=== PATIENT | male | born 1935 | race Caucasian/White ===

== ENCOUNTER 2018-08-25 19:55 | Inpatient (IN) | payer MEDICARE, OTHER, SELFPAY ==
[2018-08-25 19:59] VITALS: BP 189/79; PULSE 59; RESP 20; TEMP 36.6; O2SAT 96; BMI 31.3
--- NOTE | 2018-08-25 20:24 | DI.CT.S_ITS ---
PROCEDURE: CT HEAD/BRAIN WO CON INDICATIONS: left leg weakness all day on coumadin TECHNIQUE: Noncontrast 4.5 mm thick angled axial sections acquired from the foramen magnum to the vertex, with coronal and sagittal reformats. For radiation dose reduction, the following was used: automated exposure control, adjustment of mA and/or kV according to patient size. COMPARISON: [facility], CT, CT BRAIN W CON, 08/30/2015, 16:04. [facility], CT, CT ANGIO BRAIN AND NECK, 08/08/2015, 16:14. FINDINGS: Image quality: Excellent. CSF spaces: Basal cisterns are patent. No extra-axial fluid collections. The ventricles are symmetric in size and shape. Brain: No intracranial bleeds or masses. There is cerebral volume loss for age, with resultant ventricular and sulcal prominence. There are periventricular and deep white matter chronic small vessel ischemic changes. There is intracranial internal carotid artery atherosclerosis. Skull and face: Calvarium and visualized facial bones appear intact, without suspicious lesions. Sinuses: Visualized sinuses and mastoids are clear. IMPRESSION: Moderate microvascular atherosclerotic change in the deep white matter of each hemisphere, expected for age. Source of current symptoms is not seen. No intracranial hemorrhage found. Dictated by: Umberto Negrete M.D. on 08/25/2018 at 21:11 Approved by: Umberto Negrete M.D. on 08/25/2018 at 21:12
--- NOTE | 2018-08-25 20:26 | ED.NEUROSD ---
HPI - Neuro Symptoms/Deficit General Chief Complaint: Neuro Symptoms/Deficit Stated Complaint: thinks he had a stroke Time Seen by Provider: 08/25/18 20:12 Source: patient and family Mode of arrival: ambulatory Limitations: no limitations History of Present Illness HPI Narrative: The patient is a 83-year-old male who presents with all left leg weakness. He has a history of AFib TIAs as coronary artery disease. He says this morning around 4:00 a.m. he was dropping someone off for the airport shuttle he went to get out of the car and realized his left leg doing quite work. He denies numbness or tingling. He is able to ambulate has been able to do so throughout the day but he feels unsteady. He says it just does not feel quite right. He at no time had any facial droop slurring of speech or upper extremity weakness. He says it has gotten slightly better throughout the day but really still present. Onset (ago): hour(s) Time: 04:00 History of same: No Quality: weak Relieving factors: none Exacerbating factors: none On Anticoagulants: Yes (warfarin) Associated symptoms: denies other symptoms Related Data Allergies Allergy/AdvReac Type Severity Reaction Status Date / Time No Known Drug Allergies Allergy Verified 08/25/18 20:03 Review of Systems Review of Systems All systems reviewed & are unremarkable except as noted in HPI and below Constitutional Denies chills, Denies fever(s), Denies lethargy and Denies weakness Eyes Denies blurry vision and Denies diplopia Cardiovascular Denies chest pain, Denies irregular heart rhythm, Denies lightheadedness, Denies palpitations, Denies dyspnea, Denies dyspnea on exertion and Denies orthopnea Respiratory Denies cough, Denies dyspnea, Denies dyspnea on exertion and Denies wheezing Gastrointestinal Gastrointestinal: Denies abdominal pain, Denies change in bowel habits, Denies diarrhea, Denies nausea and Denies vomiting Musculoskeletal Reports as per HPI Integumentary/Breasts Denies pruritus, Denies erythema, Denies rash and Denies wounds Neurologic Denies weakness Endocrine Denies palpitations Allergic/Immunologic Denies wheezing PFSH Medical History Asthma (Acute) Atrial fibrillation (Acute) Diabetes (Acute) Hyperlipidemia (Acute) Hypertension (Acute) TIA (transient ischemic attack) (Acute) Surgical History H/O carotid endarterectomy (Acute) Social History Smoking Status: Never smoker Comment: PCP Dr. Taylor Exam Initial Vital Signs Initial Vital Signs: Vital Signs Temperature 97.8 F 08/25/18 19:59 Pulse Rate 59 L 08/25/18 19:59 Respiratory Rate 20 08/25/18 19:59 Blood Pressure 189/79 H 08/25/18 19:59 Pulse Oximetry 96 08/25/18 19:59 Const General: cooperative Nutritional Appearance: average body habitus Orientation: alert, awake and oriented x3 HENMT Head: normal to inspection and normocephalic Eyes General: appearance normal, both eyes and all related structures Neck Neck: normal visual inspection, full ROM and No JVD Resp Effort & Inspection: normal respiratory effort Auscultation: clear to auscultation bilaterally, no rales, no rhonchi and no wheezes Cardio Rate: regular rate Heart Sounds: S1 normal and S2 normal GI Inspection: normal to inspection Palpation: soft, No guarding and No tender Skin General: no rashes or lesions noted, No jaundice and No petechiae Neuro General: alert, oriented x3, gait normal and no focal motor deficits Cranial Nerves: CN's II-XI intact bilaterally Speech: speech normal Gait: steppage Motor: muscle tone normal throughout and strength 5/5 throughout Sensory Exam: no sensory deficits noted Extrem Left lower extremity: normal to inspection, full ROM and normal capillary refill (Strong distal pedal pulse) Scores NIH Stroke Scale Level of Conciousness: Alert, keenly responsive Ask month/age: Answers both questions correctly. Open/close eyes, close hand: Performs both tasks correctly Best gaze horizontal: Normal Visual hewitt: No visual loss Facial palsy: Normal symetrical movement Left arm drift: No drift for full 10 sec Right arm drift: No drift for full 10 sec Left leg drift: No drift for full 10 sec Right leg drift: No drift for full 10 sec Limb ataxia: Absent Sensory on face/arms/legs: Normal, no sensory loss Best language: No aphasia, normal Dysarthria: Normal Extinction or inattention: No abnormality Total NIH Stroke scale score: 0 Course Orders Ordered: ED Orders 08/25/18 20:24 CT head/brain wo con Stat 08/25/18 20:41 Complete Blood Count AUTO DIFF Stat Comprehensive Metabolic Panel Stat Partial Thromboplastin Time Stat Prothrombin Time INR Stat Troponin I Stat 08/25/18 21:35 CT angio head and neck Stat Sodium Chloride (Normal Saline 0.9%) 1,000 mls @ 150 mls/hr IV CONT EVAN Last Admin: 08/25/18 21:27 Dose: 150 mls/hr Vital Signs - 8 hr 08/25/18 19:59 08/25/18 21:13 08/25/18 23:25 Temperature 97.8 F Pulse Rate 59 L 60 65 Respiratory Rate 20 17 18 Blood Pressure 189/79 H Blood Pressure [Right Arm] 133/61 151/79 H Pulse Oximetry 96 95 MDM - Neuro Symptoms/Deficit Lab Data Attestation: I reviewed the patient's lab results. Result diagrams: 08/25/18 20:41 08/25/18 20:41 Lab Results 08/25/18 08/25/18 08/25/18 Range/Units 20:41 20:41 20:41 WBC 8.9 (4.5-11.0) X10^3/uL RBC 4.54 (4.5-5.9) X10^6/uL Hgb 14.1 (13.5-17.5) g/dL Hct 41.9 (41-53) % MCV 92.4 (80-100) fL MCH 31.1 (26-34) PG MCHC 33.6 (30-36) % RDW 14.3 (11.6-14.8) % Plt Count 186 (150-400) X10^3/uL Neut % (Auto) 71.3 (50-75) % Lymph % (Auto) 14.4 L (25-40) % [place] % (Auto) 11.4 (3-14) % Eos % (Auto) 2.3 (2-4) % Baso % (Auto) 0.6 (0-2) % Neut # (Auto) 6300 H (2784-4725) /uL PT 30.0 H (10.1-12.7) SECONDS INR 2.7 H (0.9-1.3) APTT 55 H (26.4-36.2) SECONDS Sodium 142 (137-145) mmol/L Potassium 4.2 (3.4-5.1) mmol/L Chloride 103 (98-107) mmol/L Carbon Dioxide 26 (22-32) mmol/L BUN 21 H (9-20) mg/dL Creatinine 1.00 (0.66-1.25) mg/dL Estimated GFR > 60.0 (>60) mL/min BUN/Creatinine Ratio 21.0 (6-22) Glucose 138 H (80-110) mg/dL Calcium 9.1 (8.4-10.2) mg/dL Total Bilirubin 1.2 (0.2-1.3) mg/dL AST 24 (17-59) IU/L ALT 26 (21-72) IU/L Alkaline Phosphatase 68 (38-126) U/L Troponin I < 0.012 (0.01-0.034) ng/mL Total Protein 7.0 (6.3-8.2) g/dL Albumin 4.3 (3.5-5.0) g/dL Globulin 2.7 (1.7-4.1) g/dL Albumin/Globulin Ratio 1.6 (1.0-2.8) Urine Dip Bedside Urine Glucose Negative Bedside Urine Bilirubin - Negative Bedside Urine Ketone - Negative Urine Specific [place] 1.020 Bedside Urine Occult Blood - Negative Bedside Urine pH 6.0 Bedside Urine Protein - Negative Bedside Urine Urobilinogen - Negative Bedside Urine Nitrite - Negative Bedside Urine Leukocytes - Negative Esterase Imaging Data CT scan - head: Radiologist's impression: PROCEDURE: CT HEAD/BRAIN WO CON INDICATIONS: left leg weakness all day on coumadin TECHNIQUE: Noncontrast 4.5 mm thick angled axial sections acquired from the foramen magnum to the vertex, with coronal and sagittal reformats. For radiation dose reduction, the following was used: automated exposure control, adjustment of mA and/or kV according to patient size. COMPARISON: [facility], CT, CT BRAIN W CON, 08/30/2015, 16:04. [facility], CT, CT ANGIO BRAIN AND NECK, 08/08/2015, 16:14. FINDINGS: Image quality: Excellent. CSF spaces: Basal cisterns are patent. No extra-axial fluid collections. The ventricles are symmetric in size and shape. Brain: No intracranial bleeds or masses. There is cerebral volume loss for age, with resultant ventricular and sulcal prominence. There are periventricular and deep white matter chronic small vessel ischemic changes. There is intracranial internal carotid artery atherosclerosis. Skull and face: Calvarium and visualized facial bones appear intact, without suspicious lesions. Sinuses: Visualized sinuses and mastoids are clear. IMPRESSION: Moderate microvascular atherosclerotic change in the deep white matter of each hemisphere, expected for age. Source of current symptoms is not seen. No intracranial hemorrhage found. Dictated by: Umberto Negrete M.D. 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 CT angiogram neck: Critical calcific atherosclerosis proximal left internal carotid artery stenosis between 90 and 99%. String sign. Calcific atheromatous change involving distal left common carotid artery between 50 and 70%. 5 mm of about 50% length a narrowing of proximal right internal carotid artery without calcific atheromatous change could represent very short segment dissection. Further evaluation with conventional angiography may be helpful. ECG Data Attestation: I personally reviewed and interpreted this ECG as follows: Prior ECG tracings: available for review Interpretation: Paced rhythm rate [address] interval 158, QRS 197, QTC 502 MDM Narrative Medical decision making narrative: The patient is ambulatory without walker or assistance. However he does have some difficulty with the left leg.Patient has multiple risk factors for CVA. The he is on Coumadin not a tPA candidate. No signs of large vessel occlusion. Not a thrombectomy candidate. Patient cannot have an MRI due to pacemaker, He also has coronary artery stents. I spoke with Dr. Taylor in regards to admission concern for CVA. Accepts observation. No large vessel thrombus noted on CTA. He is noted to have a critical stenosis of his left internal carotid however this is unlikely causing his symptoms of left leg weakness. He has no neck pain. Discharge Plan Departure Patient Disposition: Admitted as Observation Clinical Impression: Brain TIA Discharge Date/Time: 08/25/18 23:48 Interventions: ED Discharge Assessment Last Done: 08/25/18 22:51 Admit Date/Time: 08/25/18 22:01 Admit Provider: Godfrey Taylor
[2018-08-25 20:49] LABS: Add Manual Diff / Slide Review NO; Basophils Percent Auto 0.6 % (0-2); Eosinophils Percent Auto 2.3 % (2-4); Hematocrit 41.9 % (41-53); Hemoglobin 14.1 g/dL (13.5-17.5); Lymphocytes Percent Auto 14.4 % (25-40); Mean Corpuscular HGB Conc 33.6 % (30-36); Mean Corpuscular Hemoglobin 31.1 PG (26-34); Mean Corpuscular Volume 92.4 fL (80-100); Monocytes Percent Auto 11.4 % (3-14); Neutrophils Absolute Auto 6300 /uL (3000-5900); Neutrophils Percent Auto 71.3 % (50-75); Platelet Count 186 X10^3/uL (150-400); Red Blood Cell Count 4.54 X10^6/uL (4.5-5.9); Red Cell Distribution Width 14.3 % (11.6-14.8); White Blood Cell Count 8.9 X10^3/uL (4.5-11.0)
[2018-08-25 20:56] LABS: INR 2.7 (0.9-1.3)
[2018-08-25 20:59] LABS: PTT Partial Thromboplastin Tim 55 SECONDS (26.4-36.2)
[2018-08-25 21:04] LABS: Alanine Aminotransferase 26 IU/L (21-72); Albumin 4.3 g/dL (3.5-5.0); Albumin Globulin Ratio 1.6 (1.0-2.8); Alkaline Phosphatase 68 U/L (38-126); Aspartate Aminotransferase 24 IU/L (17-59); Bilirubin Total 1.2 mg/dL (0.2-1.3); Blood Urea Nitrogen 21 mg/dL (9-20); Calcium 9.1 mg/dL (8.4-10.2); Carbon Dioxide 26 mmol/L (22-32); Chloride 103 mmol/L (98-107); Estimated Glomerular Filt Rate > 60.0 mL/min (>60); Globulin 2.7 g/dL (1.7-4.1); Glucose 138 mg/dL (80-110); HEMOLYSIS < 15 (0-50); Potassium 4.2 mmol/L (3.4-5.1); Sodium 142 mmol/L (137-145)
[2018-08-25 21:13] VITALS: BP 133/61; PULSE 60; RESP 17; O2SAT 95
[2018-08-25 21:16] LABS: Troponin I < 0.012 ng/mL (0.01-0.034)
[2018-08-25] MEDS: SODIUM CHLORIDE 0.9% 1,000 ML 150 ML IV (21:27)
--- NOTE | 2018-08-25 21:29 | PC.NURSE ---
pt ambulatory down hallway with MD Jayshree GARCIA present, gait unsteady, reports lt leg feels too long or something
--- NOTE | 2018-08-25 21:35 | DI.CT.S_ITS ---
PROCEDURE: CT ANGIO HEAD AND NECK INDICATIONS: left leg weakness TECHNIQUE: Pre-contrast 4.5 mm thick sections acquired from the foramen magnum to the vertex. After the administration of intravenous contrast, 1 mm thick sections acquired from the aortic arch through the [place] of [place]. Post-contrast 4.5 mm thick sections then re-acquired from the foramen magnum to the vertex. 3-dimensional nteyptm-zmdgnxomc-latuevqffg (MIP) and/or volume rendering reformats were acquired of the central intracranial vasculature and neck separately. COMPARISON: [facility], CT, HEAD WITHOUT CONTRAST, 11/01/2009, 11:56. [facility], CT, HEAD WITHOUT CONTRAST, 05/12/2014, 11:22. [facility], CT, ANGIO HEAD AND NECK (P), 01/17/2015, 15:44. [facility], CT, CT ANGIO BRAIN AND NECK, 08/08/2015, 16:14. [facility], CT, CT HEAD/BRAIN WO CON, 08/25/2018, 20:23. FINDINGS: Image quality: Excellent. BRAIN: CSF spaces: Ventricles are normal in size and shape. Basal cisterns are patent. No extra-axial fluid collections. Brain: No midline shift. No intracranial bleeds or masses. Martin-white matter interface appears intact. Skull and face: Calvarium and facial bones appear intact, without suspicious lesions. Orbits appear normal. Sinuses: Sinuses and mastoids are clear. HEAD CT ANGIOGRAPHY: Anterior circulation: Intracranial internal carotid arteries are normal in size and flow. The flow within the paired anterior cerebral arteries is normal and symmetric. The flow within the middle cerebral arteries is normal and symmetric. The anterior communicating artery is seen. No aneurysms are seen. Posterior circulation: Visualized portions of the vertebral arteries demonstrate normal caliber, and join to form a normal appearing basilar artery. Flow within the posterior cerebral arteries is normal and symmetric. No aneurysms are seen. NECK CT ANGIOGRAPHY: Carotid system: The great vessels demonstrate a conventional anatomy as they arise from the aortic arch. The origins of the common carotid arteries appear patent. The common carotid arteries demonstrate normal caliber and courses. There are calcified plaques in the left distal common carotid artery and proximal internal carotid artery. The left common carotid artery is csiz-lk-zklgrjotwa narrowed with approximately 50% stenosis. There is 90-99% stenosis in the proximal left internal carotid artery. There is mild plaquing of the right common carotid artery distally without high-grade stenosis. Posterior circulation: The origins of the vertebral arteries both appear widely patent. The more superior extracranial portions of both vertebral arteries also demonstrate normal courses and calibers. They join to form a normal appearing basilar artery. Soft tissues: There is a 1.1 x 0.7 cm calcific density right of the medulla, unchanged since 11/01/2009. Visualized neck soft tissues demonstrate no suspicious abnormalities. Bones: No suspicious bony lesions. There is loss of cervical lordosis. Severe degenerative disc disease and facet arthropathy. Visualized cervical spine appears normally aligned. There are mucus retention cysts or polyps in the maxillary sinuses bilaterally. IMPRESSION: 1. No high-grade stenosis or occlusion in anterior or posterior intracranial circulations. 2. Densely calcified atherosclerotic plaques at the left carotid bifurcation with 90-99% stenosis of the proximal left internal carotid artery and ~50% of the distal left common carotid artery. 3. A 1.1 x 0.7 cm calcific density right of the medulla, unchanged since 11/01/2009, likely benign. 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 Any quantitative measurements of stenosis were performed using NASCET criteria. Dictated by: Issa Craven M.D. on 08/26/2018 at 9:01 Approved by: Issa Craven M.D. on 08/26/2018 at 9:38
[2018-08-25 23:25] VITALS: BP 151/79; PULSE 65; RESP 18
[2018-08-25 23:43] VITALS: BP 142/72; PULSE 63; RESP 16; TEMP 37.1; O2SAT 95
[2018-08-26] VITALS (7 sets, daily range): BP systolic 133–153; BP diastolic 53–82; PULSE 59–64; RESP 16–20; TEMP 36.4–36.8; O2SAT 93–95; BMI 31.3
--- NOTE | 2018-08-26 | DI.US.S_ITS ---
PROCEDURE: US CAROTID DOPPLER BI INDICATIONS: CVA TECHNIQUE: Color and pulse Doppler interrogation was performed of both carotid systems, with image documentation and velocity measurements. COMPARISON: [facility], CT, CT ANGIO HEAD AND NECK, 08/25/2018, 21:33. [facility], US, CAROTID ARTERY DOPPLER BILAT, 06/09/2014, 12:21. FINDINGS: Stenosis calculations are based on SRU (Society of Radiologists in Ultrasound) criteria. Right side: Brachial blood pressure: 145/56 mm Hg. Common carotid artery peak systolic velocity: 40 cm/sec. Internal carotid artery peak systolic velocity: No definite flow identified. Internal carotid artery end diastolic velocity: N./A. External carotid artery peak systolic velocity: 18 cm/sec. ICA/CCA peak systolic ratio: N./A.. Martin scale imaging description: Heavy scattered plaque. Percent internal carotid artery stenosis: Possible occlusion versus high-grade stenosis.. Vertebral artery: Not visualized. Left side: Brachial blood pressure: 165/78 mm Hg. Common carotid artery peak systolic velocity: 70 cm/sec. Internal carotid artery peak systolic velocity: 92 cm/sec. Internal carotid artery end diastolic velocity: 25 cm/sec. External carotid artery peak systolic velocity: 80 cm/sec. ICA/CCA peak systolic ratio: 1.3 Martin scale imaging description: Moderate scattered plaque. Percent internal carotid artery stenosis: Less than 50% stenosis. Vertebral artery: Flow direction is antegrade. IMPRESSION: 1. No definitive flow visualized within the right internal carotid artery which may be related to technical factors, although high-grade pinhole stenosis and/or occlusion cannot be excluded. If indicated MR angiography could be performed. 2. Less than 50% left internal carotid artery stenosis. 3. Right vertebral artery not visualized. Dictated by: Orlando Salmeron [facility] Interpreted: Umberto Negrete MD on 08/26/2018 at 15:08 Approved by: Umberto Negrete M.D. on 08/27/2018 at 8:57
--- NOTE | 2018-08-26 07:57 | PC.NURSE ---
pt to room aprx [id number] via stretcher, was able to transfer self over onto bed, minimal assist to remove pants, had been inc of urine and pericare given w/pullup given. was able to use urinal for rest of shift. sba to amb into br w/no limp or dragging of L foot. denied pain slightly wined w/exertion but pt denied feeling it, ra st 99%.NIH = 1 for decr'd peripheral vision/over all vision to l eye. pt did not know meds by name or the doses stating my takes of that. passed on in shift report to ask to bring in list. pt alert/oriented X's 3, though states he is forgetful at times.
--- NOTE | 2018-08-26 08:38 | PM.HP.1 ---
History of Present Illness Date Patient Seen: 08/26/18 Time Patient Seen: 08:38 Chief complaint: thinks he had a stroke Narrative: He presents complaining of weakness in his leg. He says this sensation started Thursday morning at 4:00 a.m. but did not come to the emergency department and tells 8:00 p.m. that evening. He is uncertain if the symptoms have improved he feels that his leg drags it just feels like it is not as strong as the other 1 although he is able to ambulate. He does have a history of carotid artery endarterectomy in the past. Patient History Medical History Asthma (Acute) Atrial fibrillation (Acute) Coronary artery disease (Acute) Diabetes (Acute) Hyperlipidemia (Acute) Hypertension (Acute) Retinal artery branch occlusion (Acute) TIA (transient ischemic attack) (Acute) Vocal cord dysfunction (Acute) Surgical History H/O carotid endarterectomy (Acute) History of heart artery stent (Acute) History of permanent cardiac pacemaker placement (Acute) Status post placement of other cardiac pacemaker (Acute) Family & Social History Social History: household members spouse Prior Living Arrangements House Safety & Behavioral: Feels Safe in Current Yes Environment Been Physically Hurt or No Threatened By a Person Suicidal Ideation Description None Suicide Plan Description No Plan Tobacco & Substance use: Smoking Status Never smoker alcohol intake frequency a few times a month Substance Use Type does not use Meds Allergies Allergy/AdvReac Type Severity Reaction Status Date / Time No Known Drug Allergies Allergy Verified 08/25/18 20:03 Review of Systems Constitutional Constitutional: Reports system reviewed and no additional complaints, except as documented and Denies frequent falls Eyes Eyes: Denies change in vision ENT Ears, Nose, Mouth, and Throat: Yes system reviewed; no additional complaints, except as documented Cardiovascular Cardiovascular: Denies chest pain, Denies fast heart rate and Denies shortness of breath Respiratory Respiratory: Reports system reviewed and no additional complaints, except as documented and Denies dyspnea Gastrointestinal Gastrointestinal: Reports system reviewed and no additional complaints, except as documented Genitourinary Genitourinary: Reports system reviewed and no additional complaints, except as documented Musculoskeletal Musculoskeletal: Reports abnormal gait and Denies numbness Integumentary/Breasts Skin/Breast: Reports system reviewed and no additional complaints, except as documented Neurologic Neurologic: Denies abnormal speech, Reports abnormal gait, Denies confusion, Denies frequent falls, Reports focal weakness, Denies memory loss and Denies numbness Psychiatric Psychiatric: Denies confusion and Denies memory loss Endocrine Endocrine: Reports system reviewed and no additional complaints, except as documented Hematologic/Lymphatic Hematologic/Lymphatic: Denies easy bleeding Allergic/Immunologic Allergic/Immunologic: Reports system reviewed and no additional complaints, except as documented Exam Vital Signs (past 8 hours): - 08/26/18 03:36 Temperature 97.7 F Pulse Rate 60 Respiratory Rate 16 Blood Pressure 135/76 Pulse Oximetry 94 Oxygen Delivery Method Room Air Narrative Exam Narrative: Pleasant elderly male sitting up in bed currently appears in no acute distress HEENT exam unremarkable Neck is supple no bruit noted Oropharynx clear Heart regular rhythm Lungs clear Abdomen soft nontender Lower extremities no edema Neuro exam he is awake alert speech normal he is oriented x3 there is no focal deficits of weakness or numbness noted in the upper or lower extremities to my exam but the patient continues to complain of clumsiness and weakness in in the leg. Cranial nerves are intact Objective Labs Result Diagrams: 08/25/18 20:41 08/25/18 20:41 Labs: Laboratory Results - last 24 hr 08/25/18 08/25/18 08/25/18 20:41 20:41 20:41 WBC 8.9 RBC 4.54 Hgb 14.1 Hct 41.9 MCV 92.4 MCH 31.1 MCHC 33.6 RDW 14.3 Plt Count 186 Neut % (Auto) 71.3 Lymph % (Auto) 14.4 L [place] % (Auto) 11.4 Eos % (Auto) 2.3 Baso % (Auto) 0.6 Neut # (Auto) 6300 H PT 30.0 H INR 2.7 H APTT 55 H Sodium 142 Potassium 4.2 Chloride 103 Carbon Dioxide 26 BUN 21 H Creatinine 1.00 Estimated GFR > 60.0 BUN/Creatinine Ratio 21.0 Glucose 138 H Calcium 9.1 Total Bilirubin 1.2 AST 24 ALT 26 Alkaline Phosphatase 68 Troponin I < 0.012 Total Protein 7.0 Albumin 4.3 Globulin 2.7 Albumin/Globulin Ratio 1.6 Assessment & Plan Plan: Assessment/Plan Narrative: One. TIA with persistent leg weakness. This morning he asking him if he has the symptoms still he is still complaining of clumsiness and weakness in the left leg like it does not work as well as the other 1 and different than it was previously. I am not able to to detect any significant weakness on my exam but this patient definitely very high risk for stroke. MRI not available because of his pacemaker. CT scan of the head was negative. He has multiple risk factors he is very high risk with diabetes AFib he is on chronic anticoagulation he has coronary disease and then he has these new symptoms consistent with the possible stroke and he has carotid artery disease with previous endarterectomy. I think the patient should be placed as an inpatient because of the high risk and probably has had a stroke we did scan documented with the MRI at this point. Go ahead and have physical therapy work with him watch him carefully for neuro changes and also place him with physical therapy. 2. Coronary artery disease history of stents placed and no signs of ongoing ischemia 3. History of diabetes type 2 on metformin plan to continue 3. History of hypertension continue home meds 4. Hyperlipidemia plan to continue home meds 5. History of asthma currently stable 6. Chronic anticoagulation for AFib he is currently anticoagulated sufficiently. 7. Code status the patient desires to be full code. This has been discussed with the patient Quality VTE Deep Vein Thrombosis/Pulmonary Embolism Present on Admission: No
--- NOTE | 2018-08-26 09:10 | PT.IIE ---
Addendum entered and electronically signed by Lashon Miller PT 08/26/18 15:18: This is to certify that I have reviewed this documentation and POC Original Note: Surgical History (Last Updated 08/26/18 @ 08:44 by Godfrey Taylor MD) H/O carotid endarterectomy (Acute) History of heart artery stent (Acute) History of permanent cardiac pacemaker placement (Acute) Status post placement of other cardiac pacemaker (Acute) Medical History (Last Updated 08/26/18 @ 08:44 by Godfrey Taylor MD) Asthma (Acute) Atrial fibrillation (Acute) Coronary artery disease (Acute) Diabetes (Acute) Hyperlipidemia (Acute) Hypertension (Acute) Retinal artery branch occlusion (Acute) TIA (transient ischemic attack) (Acute) Vocal cord dysfunction (Acute) Physical Therapy Inpatient Evaluation/Re-Eval M1 PT/OT-IP Prior Functional Status Start: 08/26/18 10:23 Freq: NEEDED Status: Active Protocol: Document 08/26/18 09:10 (Rec: 08/26/18 11:03 [id number]) Medical Review Prior Functional Status Medical History Reviewed Yes Communication No previous deficits noted. Mobility and Gait Pt states previously independent with all mobitlies and no AD, including ambulation, showering, self care and toileting. Social History Household Members spouse Living Arrangements House Number of Floors (Floors) One Floor Number of Stairs To Enter/Railing? 2 steps no rail to enter through the garage. 3 steps B rails to enter through the front door. Home Environment High Toilet Tub/Shower Home Equipment Straight Cane Additional Social History Comment Pt lives with Shawna who is avaliable for 24/7 assist. M2 PT-IP Current Condition Start: 08/26/18 10:23 Freq: NEEDED Status: Active Protocol: Document 08/26/18 09:10 (Rec: 08/26/18 11:03 [id number]) Physical Therapy Current Condition Current Condition Evaluation Date 08/26/18 Treatment Diagnosis s/p TIA; difficulty walking; fall risk Onset Date Precautions Other Precautions fall risk M3 PT-IP Subjective Start: 08/26/18 10:23 Freq: NEEDED Status: Active Protocol: Document 08/26/18 09:10 (Rec: 08/26/18 11:03 [id number]) Subjective Physical Therapy Visit Type Type Initial Evaluation Visit Start Time 09:10 Visit Stop Time 10:00 Total Visit Minutes 50 Number of INDUCTION HEAT TREATER Visits 0 Physical Therapy Visit Comments Patient Comments Pt agreeable to mobilize with PT Patient Goals Planning to go home with upon d/c M4 PT-IP Mobility and Gait Start: 08/26/18 10:23 Freq: NEEDED Status: Active Protocol: Document 08/26/18 09:10 (Rec: 08/26/18 11:03 [id number]) PT-Bed Mobility Assessment Supine to Sit Supine to Sit Standby Assistance Sit to Supine Sit to Supine Standby Assistance Scooting Scooting to Edge of Bed Independent PT-Transfer Assessment Sit to and From Stand Sit to and from Stand Standby Assistance Equipment Transfer Assistive Device None Gait Belt Straight Cane Orthotic/Prosthetic Devices or Brace: No Transfers Transfer Destination Bed Chair Comments Mobility Comments Resting/seated BP 138/70 HR 60 . Sit <> stand from chair is SBA (without AD as well as when performed with spc) and pt demonstrates impulsivity and requires BUE assist for ascend/descend. Sit <> supine is SBA and pt continues to move impulsively and using momentum to complete . Gait Assessment Gait Gait Assistance Required: Standby Assistance Contact Guard Assist Distance (Feet) 150 Able to Maintain Weight Bearing Status Yes During Gait Assistive Devices Assistive Device None Gait Belt Straight Cane Orthotic/Prosthetic Devices or Brace: No Gait Deviations General Gait Pattern Antalgic Decreased Stride Length Decreased Feet Clearance Narrow Based Gait Factors Limiting Gait Function Factors Limiting Gait Function Decreased Activity Tolerance Decreased Strength Poor Balance Poor Safety Awareness Comments Gait Comments Ambulation this session began with no AD x20 ft and pt demonstrates significant limp over R side with ambulation, significant sway and variability in step width, and demonstrates several minor LOB that he is able to recover without assist. Pt instructed to use a spc for additional 130 ft ambulation SBA this session and demonstrates improved gait pattern including decreased R lateral shift, more even step length and width and decreased sway. He was (+) for 1 episode of LOB when using spc while trying to use the cane to push a tissue out of his way on the floor. Pt was educated to slow down and focus on planning his steps when ambulating. Spouse agreed with pt need to slow down, focus on walking and use spc for safety. He did report feeling more secure overall with spc. Stair Climbing Assessment Evaluation Level of Assist On Stairs Minimal Assistance 1 Person Assistance Devices Stair Climbing Assistive Devices Straight Cane Technique/Endurance Stair Climbing Direction Ascend and Descend Stair Climbing Technique Step to Step Number of Steps Climbed 3 Query Text: Stair Climbing Set # Repetitions (reps) 2 Comments Stair Climbing Comments Pt performs up down 3 steps x2 minAx1 for steadying, without use of rail, but using spc. He needs mod cues for cane and step technique. PT-Balance Assessment Sitting Balance and Reactions Static Sitting Balance Ability Good Dynamic Sitting Balance Ability Good Standing Balance and Reactions Static Standing Balance Ability Fair Dynamic Standing Balance Ability Fair Device Used spc Functional Assessments Functional Tests Tinetti Balance and Gait Assessment 17 Other Functional Tests Performed Tinetti 17/28 demonstrates increased risk for falls. M5 PT-IP Objective Assessments Start: 08/26/18 10:23 Freq: NEEDED Status: Active Protocol: Document 08/26/18 09:10 (Rec: 08/26/18 11:03 [id number]) Orientation Orientation/Cognition Level of Alertness Alert Orientation Name Birthday Place Situation Safety Awareness Decreased Safety Awareness Comments Pt able to make needs known and able to respond appropriately, needing help from his for a few history/home set up items. Gross Range of Motion Lower Extremity ROM Assessment Within Functional Limits Strength Lower Extremity Strength Assessment Left Impaired Hip 4 Knee 4 Ankle 4 Comments Strength Comments LLE is slightly decreased grossly compared to L specifically hamstring and plantar flexion. Sensation Assessment Sensation Light Touch Intact Muscle Tone Comments Muscle Tone Comments No rigidity or flacidity noted during strength assessment of LE. M6 PT-IP Treatment Start: 08/26/18 10:23 Freq: NEEDED Status: Active Protocol: Document 08/26/18 09:10 (Rec: 08/26/18 11:03 [id number]) Physical Therapy Treatment Exercises Exercises Quad Sets Education Education Provided Safety Other Treatments Other Treatment Performed Pt and caregiver education in need for spc to improve balance and stability when walking. Also educated in equipment avaliable for home to improve safety with self care including shower chair of transfer bench, grab bars and hand held shower head. Caregiver/ was educated in safeguarding the patient including use of gait belt and assist on stairs. She and the pt were able to demonstrate appropriate hand hold on gait belt and proper safeguarding up/down 1 step ( PT CGA for safety) requiring min cues for hand placement. Both the pt and the caregiver/ spouse stated understanding of the concepts. M7 PT-IP Assessment and Plan Start: 08/26/18 10:23 Freq: NEEDED Status: Active Protocol: Document 08/26/18 09:10 (Rec: 08/26/18 11:03 [id number]) PT Summary Assessment and Plan Potential Rehabilitation Potential Good Status of Condition at Evaluation Stable Summary Impairments Strength Balance Coordination Bed Mobility Transfers Gait Activity Tolerance Progress Towards Goals Progressing Toward Goals Assessment Summary Pt with difficulty walking and impaired balance s/p TIA. He was able to up/down a total of 6 steps today with spc and minAx1 for steadying. He demonstrated improved balance and stability when ambulating with a spc SBA compared to no AD requiring CGA to recover from LOBx1. 17/28 score on Tinetti demonstrates pt is high risk for falls. Recommending d/c to home with 24/7 assist, use of spc for all ambulation and f/u with OP PT to improve balance and decrease risk of falls. Goals Bed Mobility Goal Independent Transfer Goal Standby Assistance Gait Goal Independent Cane Gait Distance 200 Other Goals STG: pt will ambulate 200 ft with spc SBA and no LOB. LTG: pt will up/down 3 steps SBA using B rails. Days to Meet Goals 3 Frequency of Treatment Frequency Of Treatment Once a Day Treatment Plan Physical Therapy Treatment Plan Bed Mobility Training Transfer Training Gait Training Therapeutic Exercise Balance Retraining Discharge Planning Neuromuscular Re-ed Coordination Retraining Other Recommendations and Next Treatment ambulation and stair climbing. Focus Recommendations To Nursing Amount of Assist Needed 1 Person Assist Discharge Recommendations PT Discharge Recommendations Home with 24/7 Assist Outpatient PT Equipment Needed for Home Before spc Discharge
--- NOTE | 2018-08-26 09:10 | PT.IIE ---
Surgical History (Last Updated 08/26/18 @ 08:44 by Godfrey Taylor MD) H/O carotid endarterectomy (Acute) History of heart artery stent (Acute) History of permanent cardiac pacemaker placement (Acute) Status post placement of other cardiac pacemaker (Acute) Medical History (Last Updated 08/26/18 @ 08:44 by Godfrey Taylor MD) Asthma (Acute) Atrial fibrillation (Acute) Coronary artery disease (Acute) Diabetes (Acute) Hyperlipidemia (Acute) Hypertension (Acute) Retinal artery branch occlusion (Acute) TIA (transient ischemic attack) (Acute) Vocal cord dysfunction (Acute) Physical Therapy Inpatient Evaluation/Re-Eval M1 PT/OT-IP Prior Functional Status Start: 08/26/18 10:23 Freq: NEEDED Status: Active Protocol: Document 08/26/18 09:10 (Rec: 08/26/18 11:03 [id number]) Medical Review Prior Functional Status Medical History Reviewed Yes Communication No previous deficits noted. Mobility and Gait Pt states previously independent with all mobitlies and no AD, including ambulation, showering, self care and toileting. Social History Household Members spouse Living Arrangements House Number of Floors (Floors) One Floor Number of Stairs To Enter/Railing? 2 steps no rail to enter through the garage. 3 steps B rails to enter through the front door. Home Environment High Toilet Tub/Shower Home Equipment Straight Cane Additional Social History Comment Pt lives with Shawna who is avaliable for 24/7 assist. M2 PT-IP Current Condition Start: 08/26/18 10:23 Freq: NEEDED Status: Active Protocol: Document 08/26/18 09:10 (Rec: 08/26/18 11:03 [id number]) Physical Therapy Current Condition Current Condition Evaluation Date 08/26/18 Treatment Diagnosis s/p TIA; difficulty walking; fall risk Onset Date Precautions Other Precautions fall risk M3 PT-IP Subjective Start: 08/26/18 10:23 Freq: NEEDED Status: Active Protocol: Document 08/26/18 09:10 (Rec: 08/26/18 11:03 [id number]) Subjective Physical Therapy Visit Type Type Initial Evaluation Visit Start Time 09:10 Visit Stop Time 10:00 Total Visit Minutes 50 Number of SLOT FLOOR PERSON Visits 0 Physical Therapy Visit Comments Patient Comments Pt agreeable to mobilize with PT Patient Goals Planning to go home with upon d/c M4 PT-IP Mobility and Gait Start: 08/26/18 10:23 Freq: NEEDED Status: Active Protocol: Document 08/26/18 09:10 (Rec: 08/26/18 11:03 [id number]) PT-Bed Mobility Assessment Supine to Sit Supine to Sit Standby Assistance Sit to Supine Sit to Supine Standby Assistance Scooting Scooting to Edge of Bed Independent PT-Transfer Assessment Sit to and From Stand Sit to and from Stand Standby Assistance Equipment Transfer Assistive Device None Gait Belt Straight Cane Orthotic/Prosthetic Devices or Brace: No Transfers Transfer Destination Bed Chair Comments Mobility Comments Resting/seated BP 138/70 HR 60 . Sit <> stand from chair is SBA (without AD as well as when performed with spc) and pt demonstrates impulsivity and requires BUE assist for ascend/descend. Sit <> supine is SBA and pt continues to move impulsively and using momentum to complete . Gait Assessment Gait Gait Assistance Required: Standby Assistance Contact Guard Assist Distance (Feet) 150 Able to Maintain Weight Bearing Status Yes During Gait Assistive Devices Assistive Device None Gait Belt Straight Cane Orthotic/Prosthetic Devices or Brace: No Gait Deviations General Gait Pattern Antalgic Decreased Stride Length Decreased Feet Clearance Narrow Based Gait Factors Limiting Gait Function Factors Limiting Gait Function Decreased Activity Tolerance Decreased Strength Poor Balance Poor Safety Awareness Comments Gait Comments Ambulation this session began with no AD x20 ft and pt demonstrates significant limp over R side with ambulation, significant sway and variability in step width, and demonstrates several minor LOB that he is able to recover without assist. Pt instructed to use a spc for additional 130 ft ambulation SBA this session and demonstrates improved gait pattern including decreased R lateral shift, more even step length and width and decreased sway. He was (+) for 1 episode of LOB when using spc while trying to use the cane to push a tissue out of his way on the floor. Pt was educated to slow down and focus on planning his steps when ambulating. Spouse agreed with pt need to slow down, focus on walking and use spc for safety. He did report feeling more secure overall with spc. Stair Climbing Assessment Evaluation Level of Assist On Stairs Minimal Assistance 1 Person Assistance Devices Stair Climbing Assistive Devices Straight Cane Technique/Endurance Stair Climbing Direction Ascend and Descend Stair Climbing Technique Step to Step Number of Steps Climbed 3 Query Text: Stair Climbing Set # Repetitions (reps) 2 Comments Stair Climbing Comments Pt performs up down 3 steps x2 minAx1 for steadying, without use of rail, but using spc. He needs mod cues for cane and step technique. PT-Balance Assessment Sitting Balance and Reactions Static Sitting Balance Ability Good Dynamic Sitting Balance Ability Good Standing Balance and Reactions Static Standing Balance Ability Fair Dynamic Standing Balance Ability Fair Device Used spc Functional Assessments Functional Tests Tinetti Balance and Gait Assessment 17 Other Functional Tests Performed Tinetti 17/28 demonstrates increased risk for falls. M5 PT-IP Objective Assessments Start: 08/26/18 10:23 Freq: NEEDED Status: Active Protocol: Document 08/26/18 09:10 (Rec: 08/26/18 11:03 [id number]) Orientation Orientation/Cognition Level of Alertness Alert Orientation Name Birthday Place Situation Safety Awareness Decreased Safety Awareness Comments Pt able to make needs known and able to respond appropriately, needing help from his for a few history/home set up items. Gross Range of Motion Lower Extremity ROM Assessment Within Functional Limits Strength Lower Extremity Strength Assessment Left Impaired Hip 4 Knee 4 Ankle 4 Comments Strength Comments LLE is slightly decreased grossly compared to L specifically hamstring and plantar flexion. Sensation Assessment Sensation Light Touch Intact Muscle Tone Comments Muscle Tone Comments No rigidity or flacidity noted during strength assessment of LE. M6 PT-IP Treatment Start: 08/26/18 10:23 Freq: NEEDED Status: Active Protocol: Document 08/26/18 09:10 (Rec: 08/26/18 11:03 [id number]) Physical Therapy Treatment Exercises Exercises Quad Sets Education Education Provided Safety Other Treatments Other Treatment Performed Pt and caregiver education in need for spc to improve balance and stability when walking. Also educated in equipment avaliable for home to improve safety with self care including shower chair of transfer bench, grab bars and hand held shower head. Caregiver/ was educated in safeguarding the patient including use of gait belt and assist on stairs. She and the pt were able to demonstrate appropriate hand hold on gait belt and proper safeguarding up/down 1 step ( PT CGA for safety) requiring min cues for hand placement. Both the pt and the caregiver/ spouse stated understanding of the concepts. M7 PT-IP Assessment and Plan Start: 08/26/18 10:23 Freq: NEEDED Status: Active Protocol: Document 08/26/18 09:10 (Rec: 08/26/18 11:03 [id number]) PT Summary Assessment and Plan Potential Rehabilitation Potential Good Status of Condition at Evaluation Stable Summary Impairments Strength Balance Coordination Bed Mobility Transfers Gait Activity Tolerance Progress Towards Goals Progressing Toward Goals Assessment Summary Pt with difficulty walking and impaired balance s/p TIA. He was able to up/down a total of 6 steps today with spc and minAx1 for steadying. He demonstrated improved balance and stability when ambulating with a spc SBA compared to no AD requiring CGA to recover from LOBx1. 17/28 score on Tinetti demonstrates pt is high risk for falls. Recommending d/c to home with 24/7 assist, use of spc for all ambulation and f/u with OP PT to improve balance and decrease risk of falls. Goals Bed Mobility Goal Independent Transfer Goal Standby Assistance Gait Goal Independent Cane Gait Distance 200 Other Goals STG: pt will ambulate 200 ft with spc SBA and no LOB. LTG: pt will up/down 3 steps SBA using B rails. Days to Meet Goals 3 Frequency of Treatment Frequency Of Treatment Once a Day Treatment Plan Physical Therapy Treatment Plan Bed Mobility Training Transfer Training Gait Training Therapeutic Exercise Balance Retraining Discharge Planning Neuromuscular Re-ed Coordination Retraining Other Recommendations and Next Treatment ambulation and stair climbing. Focus Recommendations To Nursing Amount of Assist Needed 1 Person Assist Discharge Recommendations PT Discharge Recommendations Home with 24/7 Assist Outpatient PT Equipment Needed for Home Before spc Discharge
[2018-08-26] MEDS: METOPROLOL ER 50 MG TABLET PO (10:45)
[2018-08-26] MEDS: MONTELUKAST 10 MG TABLET PO (10:45)
[2018-08-26] MEDS: ASPIRIN EC 81 MG TABLET PO (10:45)
--- NOTE | 2018-08-26 15:47 | PC.NURSE ---
Pt awake and alert lying quietly in bed. Denies pain. Admits to left visual deficit as a baseline unrelated to this admission. Reports feels as though left leg not back to full strength, but this is negligible at assessment. Spouse is present and involved in pt's care. Tele in place. Bed alarm for pt safety.
[2018-08-26] MEDS: METFORMIN HCL 500 MG TABLET 1000 MG PO (16:54)
[2018-08-26] MEDS: WARFARIN 2 MG TABLET 4 MG PO (16:55)
[2018-08-26] MEDS: ATORVASTATIN 20 MG TABLET 40 MG PO (19:50)
[2018-08-26] MEDS: SODIUM CHLORIDE 0.9% FLUSH 10 ML IV (19:51)
[2018-08-26] MEDS: ACETAMINOPHEN 325 MG TABLET 650 MG PO (22:07)
[2018-08-27 01:20] VITALS: O2SAT 96
[2018-08-27 03:40] VITALS: BP 142/78; PULSE 58; RESP 16; TEMP 36.4; O2SAT 95
--- NOTE | 2018-08-27 08:35 | P.DS_ITS ---
History of Present Illness Date Patient Seen: 08/27/18 Time Patient Seen: 08:34 Chief complaint: thinks he had a stroke Narrative: He presents complaining of weakness in his leg. He says this sensation started Thursday morning at 4:00 a.m. but did not come to the emergency department and tells 8:00 p.m. that evening. He is uncertain if the symptoms have improved he feels that his leg drags it just feels like it is not as strong as the other 1 although he is able to ambulate. He does have a history of carotid artery endarterectomy in the past. Discharge Providers Date of admission: 08/25/18 22:01 Primary care physician: Godfrey Taylor MD Consults: 08/26/18 01:48 Consult to Physician Routine Comment: Consulting Provider: Godfrey Taylor Reason for consultation: admission Has provider been notified: Yes 08/26/18 08:30 Consult to Physical Therapy Evaluate & Treat Comment: cva leg weakness Physician Instructions: Evaluate and Treat Discharge provider: Godfrey Taylor MD Discharge Date: 08/27/18 Summary Discharge Diagnosis: One. Acute stroke with left leg weakness that is persistent 2. Carotid artery stenosis 3. Coronary artery disease 4. Diabetes type 2 5. Hypertension 6. Hyperlipidemia 7. Chronic AFib on chronic anticoagulation Hospital Course: Patient presented to the hospital with left leg weakness that persisted it did get better but has not resolved he still has the weakness still has difficulty with ambulation even on discharge. He is has been getting some physical therapy that will be continued. CT scan of the head did not show any acute infarct but did show severe left carotid artery stenosis he has had previous right carotid artery endarterectomy. He also has chronic AFib. A pacemaker prohibited the MRI being done so we do not have imaging to confirm the stroke but by clinical criteria he definitely had a stroke but most likely in the right side as he has left-sided symptoms. He does have this significant stenosis in the left carotid artery this has been noted before but may be progressive. I will refer him to vascular surgery as an outpatient. He had a difficult time with the right-sided endarterectomy a few years ago and is not excited about having further procedures but is willing to if needed. Blood pressure is controlled diabetes is controlled and INR is therapeutic he is on lipid lowering therapy. We have changed him from aspirin to Plavix. He will also continue with physical therapy for the left leg weakness I have referred him to [facility] in [place] Status at Discharge Cognitive/behavioral status at discharge: Cognitive status is at baseline Functional status at discharge: independent ambulation Overall status at discharge: patient is not back to baseline Time Spent with Patient Greater than 30 minutes Exam Vital Signs (past 8 hours): - 08/27/18 01:20 08/27/18 03:40 Temperature 97.5 F L Pulse Rate 58 L Respiratory Rate 16 Blood Pressure 142/78 H Pulse Oximetry 96 95 Oxygen Delivery Method Room Air Oxygen Flow Rate 0 Narrative Exam Narrative: Pleasant male no acute distress lungs are clear Heart regular rhythm Neuro exam left lower extremity 4/5 strength otherwise in neuro exam unremarkable Objective Labs Result Diagrams: 08/25/18 20:41 08/25/18 20:41 Discharge Plan Discharge Plan Patient Disposition: Home Discharge comment: Follow-up with Dr. Taylor in the office next week Discharge Med Rec/Prescriptions Prescriptions: New clopidogrel [Plavix] 75 mg Tablet 75 mg PO DAILY Qty: 30 RF: 12 Continue warfarin 6 mg Tablet 6 mg PO QMWF RF: 0 warfarin 4 mg Tablet 4 mg PO [id number] RF: 0 metformin 1,000 mg Tablet 1,000 mg PO 0800 RF: 0 metformin 500 mg Tablet 500 mg PO 1700 RF: 0 metoprolol succinate 50 mg Tablet Extended Release 24 Hr 50 mg PO DAILY RF: 0 atorvastatin 40 mg Tablet 40 mg PO BEDTIME RF: 0 montelukast 10 mg Tablet 10 mg PO DAILY RF: 0 Discontinued aspirin 81 mg Tablet,Delayed Release (Dr/Ec) 81 mg PO DAILY RF: 0 Follow up/Referrals: Godfrey Taylor MD [Primary Care Provider] - 1 Week Provider Discharge Instructions Diet: Carb-consistent/Diabetic Activity: as tolerated Other treatments: Refer to [facility] for left leg weakness after CVA Discharge Data Primary Care Provider: Godfrey Taylor Attending Provider: Godfrey Taylor Admit Date/Time: 08/25/18 22:01 Quality VTE Deep Vein Thrombosis/Pulmonary Embolism Present on Admission: No
[2018-08-27 08:50] VITALS: BP 145/78; PULSE 60; RESP 16; TEMP 36.3; O2SAT 96
[2018-08-27] MEDS: CLOPIDOGREL 75 MG TABLET PO (09:05)
[2018-08-27] MEDS: METFORMIN HCL 500 MG TABLET 1000 MG PO (09:05)
[2018-08-27] MEDS: SODIUM CHLORIDE 0.9% FLUSH 10 ML IV (09:07)
[2018-08-27] MEDS: MONTELUKAST 10 MG TABLET PO (09:07)
[2018-08-27] MEDS: METOPROLOL ER 50 MG TABLET PO (09:07)
[2018-08-27 09:15] VITALS: O2SAT 95
--- NOTE | 2018-08-27 10:09 | PC.NURSE ---
AM NOTE - alert, no complaint discomfort, headache last night resolved w/tylenol, declines any addl medications this am, moving lle independently and states weakness has improved, later up with phys therapy, using fww, ambul hallway, no foot drop or drag noted, in this am and pt dc home, tele and hep lock dc'd. Reviewed dc instructions, script provided, dressed and tsf via wc by supervisor [employer] to car.
--- NOTE | 2018-08-27 16:59 | PT.IPTN ---
Current Diagnoses Transient cerebral ischemic attack, unspecified (08/25/18) Physical Therapy Treatment Note M2 PT-IP Current Condition Start: 08/26/18 10:23 Freq: NEEDED Status: Discharge Protocol: Document 08/26/18 09:10 (Rec: 08/26/18 11:03 [id number]) Physical Therapy Current Condition Current Condition Evaluation Date 08/26/18 Treatment Diagnosis s/p TIA; difficulty walking; fall risk Onset Date Precautions Other Precautions fall risk M3 PT-IP Subjective Start: 08/26/18 10:23 Freq: NEEDED Status: Discharge Protocol: Document 08/27/18 09:26 LJ (Rec: 08/27/18 16:58 LJ [id number]) Subjective Physical Therapy Visit Type Type Treatment Note Visit Start Time 09:23 Visit Stop Time 09:45 Total Visit Minutes 22 Physical Therapy Visit Comments Patient Comments Pt willing to ambulate in hallway. getting ready to go home. Therapy Pain Assessment Location top of head Intensity 3 Scale Used Numeric (1 - 10) Description Aching Dull M4 PT-IP Mobility and Gait Start: 08/26/18 10:23 Freq: NEEDED Status: Discharge Protocol: Document 08/27/18 09:26 LJ (Rec: 08/27/18 16:58 LJ [id number]) PT-Bed Mobility Assessment Rolling Level of Assist Minimal Assistance 1 Person Assistance Supine to Sit Supine to Sit Standby Assistance Sit to Supine Sit to Supine Standby Assistance Scooting Scooting to Edge of Bed Independent PT-Transfer Assessment Sit to and From Stand Sit to and from Stand Standby Assistance Equipment Transfer Assistive Device None Gait Belt Straight Cane Orthotic/Prosthetic Devices or Brace: No Transfers Transfer Destination Bed Chair Comments Mobility Comments Pt Brittany with donning slippers to transfer from bed standing with FWW. Gait Assessment Gait Gait Assistance Required: Standby Assistance Contact Guard Assist Distance (Feet) 200 Able to Maintain Weight Bearing Status Yes During Gait Assistive Devices Assistive Device Gait Belt Front Wheeled Walker Orthotic/Prosthetic Devices or Brace: No Gait Deviations General Gait Pattern Decreased Feet Clearance Narrow Based Gait Factors Limiting Gait Function Factors Limiting Gait Function Decreased Activity Tolerance Decreased Strength Poor Balance Poor Safety Awareness Comments Gait Comments Pt impulsive with gait in hallway requiring cues to slow down and pace himself. Somewhat annoyed with use of FWW. M5 PT-IP Objective Assessments Start: 08/26/18 10:23 Freq: NEEDED Status: Discharge Protocol: Document 08/26/18 09:10 (Rec: 08/26/18 11:03 [id number]) Orientation Orientation/Cognition Level of Alertness Alert Orientation Name Birthday Place Situation Safety Awareness Decreased Safety Awareness Comments Pt able to make needs known and able to respond appropriately, needing help from his for a few history/home set up items. Gross Range of Motion Lower Extremity ROM Assessment Within Functional Limits Strength Lower Extremity Strength Assessment Left Impaired Hip 4 Knee 4 Ankle 4 Comments Strength Comments LLE is slightly decreased grossly compared to L specifically hamstring and plantar flexion. Sensation Assessment Sensation Light Touch Intact Muscle Tone Comments Muscle Tone Comments No rigidity or flacidity noted during strength assessment of LE. M6 PT-IP Treatment Start: 08/26/18 10:23 Freq: NEEDED Status: Discharge Protocol: Document 08/26/18 09:10 (Rec: 08/26/18 11:03 [id number]) Physical Therapy Treatment Exercises Exercises Quad Sets Education Education Provided Safety Other Treatments Other Treatment Performed Pt and caregiver education in need for spc to improve balance and stability when walking. Also educated in equipment avaliable for home to improve safety with self care including shower chair of transfer bench, grab bars and hand held shower head. Caregiver/ was educated in safeguarding the patient including use of gait belt and assist on stairs. She and the pt were able to demonstrate appropriate hand hold on gait belt and proper safeguarding up/down 1 step ( PT CGA for safety) requiring min cues for hand placement. Both the pt and the caregiver/ spouse stated understanding of the concepts. M7 PT-IP Assessment and Plan Start: 08/26/18 10:23 Freq: NEEDED Status: Discharge Protocol: Document 08/27/18 09:26 LJ (Rec: 08/27/18 16:58 LJ [id number]) PT Summary Assessment and Plan Potential Rehabilitation Potential Good Status of Condition at Evaluation Stable Summary Impairments Strength Balance Coordination Bed Mobility Transfers Gait Activity Tolerance Progress Towards Goals Progressing Toward Goals Assessment Summary Pt impulsive and will require minimum SPC for ambulating at home. No LOB during this treatment. Goals Bed Mobility Goal Independent Transfer Goal Standby Assistance Gait Goal Independent Cane Gait Distance 200 Other Goals STG: pt will ambulate 200 ft with spc SBA and no LOB. LTG: pt will up/down 3 steps SBA using B rails. Days to Meet Goals 3 Frequency of Treatment Frequency Of Treatment Once a Day Treatment Plan Physical Therapy Treatment Plan Bed Mobility Training Transfer Training Gait Training Therapeutic Exercise Balance Retraining Discharge Planning Neuromuscular Re-ed Coordination Retraining Other Recommendations and Next Treatment ambulation and stair climbing. Focus Recommendations To Nursing Amount of Assist Needed Standby Assistance Discharge Recommendations PT Discharge Recommendations Home with / Assist Outpatient PT Equipment Needed for Home Before spc Discharge
== END 2018-08-27 10:15 | disposition home or self-care (01) | DRG 66 ==
LOC: ED 20:12 → AC 22:02
PROVIDERS: Admitting Provider Internal Medicine; Emergency Provider Emergency Medicine; Family Provider Internal Medicine; PCP Internal Medicine; Visit Provider Internal Medicine
DX: I63.231 Cerebral infarction due to unspecified occlusion or stenosis of right carotid arteries (principal); G83.14 Monoplegia of lower limb affecting left nondominant side; I25.10 Atherosclerotic heart disease of native coronary artery without angina pectoris; Z95.5 Presence of coronary angioplasty implant and graft; E11.9 Type 2 diabetes mellitus without complications; Z79.84 Long term (current) use of oral hypoglycemic drugs; I10 Essential (primary) hypertension; E78.5 Hyperlipidemia, unspecified; J45.909 Unspecified asthma, uncomplicated; Z79.01 Long term (current) use of anticoagulants; I48.2 Chronic atrial fibrillation
CPT/HCPCS: 36591; 70450; 70496; 70498; 80053; 81003; 82962; 84484; 85025; 85610; 85730; 93005; 93880; 96360; 96361; 97116; 97161; 97530; 99283; 99285; 99291; Q9967

== ENCOUNTER 2020-10-01 12:52 | Observation (INO) | payer MEDICARE, OTHER, SELFPAY ==
[2018-08-26 04:43] VITALS: BMI 31.3
[2020-10-01] VITALS (15 sets, daily range): BP systolic 128–204; BP diastolic 65–95; PULSE 60–63; RESP 7–20; TEMP 36.3–37; O2SAT 94–98; BMI 31.4; BMI 29.8
--- NOTE | 2020-10-01 12:54 | DI.CT.S_ITS ---
PROCEDURE: CT STROKE INDICATIONS: slurred speech TECHNIQUE: Noncontrast 4.5 mm thick angled axial sections acquired from the foramen magnum to the vertex, with coronal reformats. For radiation dose reduction, the following was used: automated exposure control, adjustment of mA and/or kV according to patient size. COMPARISON: None. FINDINGS: Image quality: Excellent. CSF spaces: Basal cisterns are patent. No extra-axial fluid collections. The ventricles are symmetric in size and shape. Brain: No intracranial bleeds or masses. There is cerebral volume loss for age, with resultant ventricular and sulcal prominence. There are periventricular and deep white matter chronic small vessel ischemic changes. There is intracranial internal carotid artery atherosclerosis. Skull and face: Calvarium and visualized facial bones appear intact, without suspicious lesions. Sinuses: Partially visualized small mucous retention cyst or polyp seen in both maxillary antrum. IMPRESSION: No acute intracranial process. Findings were personally telephoned and discussed with Dr. Mckeon in the emergency department at 1315 hours 10/01/20. This study fulfills neurological imaging criteria for inclusion or exclusion of acute stroke therapies based on available published neurological guidelines. Dictated by: Andre Detn M.D. on 10/01/2020 at 13:12 Approved by: Andre Dent M.D. on 10/01/2020 at 13:16
--- NOTE | 2020-10-01 12:59 | ED.NEUROSD ---
HPI - Neuro Symptoms/Deficit General Chief Complaint: Neuro Symptoms/Deficit Stated Complaint: possible stroke Time Seen by Provider: 10/01/20 12:57 Source: patient and EMS Mode of arrival: EMS Limitations: no limitations History of Present Illness HPI Narrative: This is an 85-year-old male who comes to the emergency department with complaint of weakness and difficulty with use in his right upper extremity and tingling as well as difficulty with speech. Patient states his speech seems to be improving. He states his upper extremity is working normally now. He believes this started about noon, his who was not present with him was last seen normal about 9:00 a.m. patient has a prior history of either TIAs or fever CVA in the past. He is on warfarin daily, he takes dyslipidemia and diabetic medications. Patient denies any headache, no vision changes, no chest pain or shortness of breath, no diaphoresis. He denies any nausea, vomiting, no diarrhea, constipation or urinary symptoms. He denies any numbness, tingling or weakness in his lower extremities. 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 Patient lives with his who will be calling to touch base with the hospital. Related Data Home Medications Medication Instructions Recorded Confirmed atorvastatin 40 mg PO BEDTIME 08/26/18 10/01/20 metformin 1,000 mg PO BID 08/26/18 10/01/20 montelukast 10 mg PO QPM 08/26/18 10/01/20 warfarin 4 mg PO [id number] 08/26/18 10/01/20 warfarin 6 mg PO QMWF 08/26/18 10/01/20 metoprolol succinate 100 mg PO DAILY 10/01/20 10/01/20 Allergies Allergy/AdvReac Type Severity Reaction Status Date / Time No Known Drug Allergies Allergy Verified 08/25/18 20:03 Review of Systems Review of Systems ROS Unobtainable: All systems reviewed & are unremarkable except as noted in HPI and below Patient History Medical History Asthma Atrial fibrillation Coronary artery disease Diabetes Hyperlipidemia Hypertension Retinal artery branch occlusion TIA (transient ischemic attack) Vocal cord dysfunction Surgical History H/O carotid endarterectomy History of heart artery stent History of permanent cardiac pacemaker placement Status post placement of other cardiac pacemaker Family History (Updated 10/01/20 @ 16:35 by Tremaine Plummer DO) Father CAD (coronary artery disease) Mother Cancer Social History household members: spouse Smoking Status: Never smoker Smoking Status: Never smoker alcohol intake frequency: a few times a month Substance Use Type: does not use Exam Narrative Exam Narrative: GEN: well nourished, well appearing male, alert and oriented x 3, patient appears to be in mild distress. HEENT: Atraumatic, pupils are equal round reactive to light, extraocular movements are intact, nares are clear, TMs are clear with no fluid, there is no conjunctival pallor. Throat is clear without any exudates, erythema, tonsillar enlargement or uvular deviation, no facial droop appreciated HEART: Regular rate and rhythm without murmur, clicks, rubs. No carotid bruits, pulses are equal in upper and lower extremities LUNGS:Lungs clear to auscultation, no wheezes, rales, crackles, chest moves symmetrically ABD:bowel sounds normal, soft, non-tender, no guarding, rebound, rigidity, no masses noted, no hepatosplenomegaly :No CVA tenderness MSCL: Non-tender, no muscle atrophy, muscles strength 5/5 upper and lower extremities, full range of motion, normal gait Initial Vital Signs Initial Vital Signs: Vital Signs Temperature 97.3 F L 10/01/20 12:59 Scores NIH Stroke Scale Level of Conciousness: Alert, keenly responsive Ask month/age: Answers both questions correctly. Open/close eyes, close hand: Performs both tasks correctly Best gaze horizontal: Normal Visual hewitt: No visual loss Facial palsy: Normal symetrical movement Left arm drift: No drift for full 10 sec Right arm drift: No drift for full 10 sec Left leg drift: No drift for full 5 sec Right leg drift: No drift for full 5 sec Limb ataxia: Absent Sensory on face/arms/legs: Normal, no sensory loss Course Orders Ordered: ED Orders 10/01/20 11:55 Complete Blood Count AUTO DIFF Stat Partial Thromboplastin Time Stat Prothrombin Time INR Stat Troponin & CK Cardiac Panel Stat 10/01/20 12:54 CT Stroke Stat 10/01/20 12:58 CT angio head and neck Stat Urine Drug Screen, Rapid Stat EKG-12 Lead Stat 10/01/20 13:26 COVID19 Stat Acetaminophen (Acetaminophen 325 Mg Tablet) 650 mg PO Q6HR PRN PRN Reason: Fever/Mild Pain (1-3) Atorvastatin Calcium (Atorvastatin 20 Mg Tablet) 40 mg PO BEDTIME EVAN Dextrose (Dextrose 50 % In Water 25 Gm/50 Ml Syringe) 25 gm IV PRN PRN PRN Reason: Hypoglycemia Insulin Aspart (Insulin Aspart 100 Unit/Ml Insuln Pen) 0 unit SUBCUT ACHS [facility]; Protocol Last Admin: 10/01/20 17:40 Dose: Not Given Documented by: TERRA Magnesium Hydroxide (Magnesium Hydroxide 30 Ml Udc) 30 ml PO DAILY PRN PRN Reason: Constipation Metoprolol Succinate (Metoprolol Er 50 Mg Tablet) 100 mg PO DAILY [facility] Montelukast Sodium (Montelukast 10 Mg Tablet) 10 mg PO 1700 EVAN Last Admin: 10/01/20 17:39 Dose: 10 mg Documented by: TERRA Ondansetron HCl (Ondansetron 4 Mg/2 Ml Inj) 4 mg IV Q8HR PRN PRN Reason: Nausea And Vomiting Discontinued Medications Sodium Chloride (Normal Saline 0.9%) 1,000 mls @ 150 mls/hr IV CONT EVAN Stop: 10/01/20 16:03 Last Infusion: 10/01/20 15:15 Dose: 0 mls/hr Documented by: Admin: 10/01/20 13:26 Dose: 150 mls/hr Documented by: DANYELLE Labetalol HCl (Labetalol 20 Mg/4 Ml Syringe) 10 mg IV NOW ONE Stop: 10/01/20 13:38 Last Admin: 10/01/20 13:41 Dose: 10 mg Documented by: DANYELLE Reevaluation(s) Reevaluation #1: Recheck, patient updated on Head CT which is negative. Reviewed his labs and imaging today. Time: 14:23 Consultations Consultation #1: Spoke with Dr. Plummer, patient had NIH of 0, his symptoms are resolving upon arrival. He does still seem to have a little bit a difficulty with speech but was able to passes NIH scale. During his stay in the department he was initially in the 180 range for his pressure but it increased to 200, he was given labetalol which brought him down to the 160 range. He is also supratherapeutic on his INR with a 4 and normally takes Plavix with his warfarin so aspirin was held. Abnormalities in his COVID swab is negative Dr. Plummer kindly accepts patient for observation Time: 14:23 Vital Signs Vital signs: Vital Signs - 8 hr 10/01/20 12:59 10/01/20 13:09 10/01/20 13:10 Temperature 97.3 F L Pulse Rate 60 63 Respiratory Rate 18 Blood Pressure 185/84 H Pulse Oximetry 98 97 10/01/20 13:30 10/01/20 13:41 10/01/20 13:46 Temperature Pulse Rate 60 60 60 Respiratory Rate 7 L 20 Blood Pressure 204/92 H 202/92 H 185/95 H Pulse Oximetry 98 97 10/01/20 14:00 10/01/20 14:13 10/01/20 14:18 Temperature Pulse Rate 60 62 60 Respiratory Rate 16 13 Blood Pressure 171/73 H 169/79 H 169/79 H Pulse Oximetry 96 95 10/01/20 14:30 10/01/20 14:55 10/01/20 15:00 Temperature Pulse Rate 60 60 60 Respiratory Rate 11 L 10 L 15 Blood Pressure 183/84 H 178/79 H 169/79 H Pulse Oximetry 98 95 95 MDM - Neuro Symptoms/Deficit Lab Data Attestation: I reviewed the patient's lab results. Result diagrams: 10/01/20 11:55 10/01/20 11:55 Labs: Lab Results 10/01/20 10/01/20 10/01/20 Range/Units 11:55 11:55 11:55 WBC 9.6 (4.5-11.0) X10^3/uL RBC 4.77 (4.5-5.9) X10^6/uL Hgb 14.5 (13.5-17.5) g/dL Hct 43.9 (41-53) % MCV 92.0 (80-100) fL MCH 30.3 (26-34) PG MCHC 33.0 (30-36) % RDW 15.3 H (11.6-14.8) % Plt Count 229 (150-400) X10^3/uL Neut % (Auto) 73.0 (50-75) % Lymph % (Auto) 16.5 L (25-40) % [place] % (Auto) 9.8 (3-14) % Eos % (Auto) 0.0 L (2-4) % Baso % (Auto) 0.7 (0-2) % Neut # (Auto) 7000 (5322-6138) /uL Lymph # (Auto) 1600 (4079-0391) /uL [place] # (Auto) 900 (0-900) /uL Eos # (Auto) 0 (0-450) /uL Baso # (Auto) 100 (0-100) /uL PT 45.5 H (10.1-12.7) SECONDS INR 4.0 H (0.9-1.3) APTT 49 H D (26.4-36.2) SECONDS Sodium (137-145) mmol/L Potassium (3.4-5.1) mmol/L Chloride (98-107) mmol/L Carbon Dioxide (22-32) mmol/L BUN (9-20) mg/dL Creatinine (0.66-1.25) mg/dL Estimated GFR (>60) mL/min BUN/Creatinine Ratio (6-22) Glucose (80-110) mg/dL Calcium (8.4-10.2) mg/dL Total Creatine Kinase 75 (55-170) U/L CK-MB (CK-2) TNP CK-MB (CK-2) Rel Index TNP Troponin I < 0.012 (0.01-0.034) ng/mL COVID-19 PCR (Negative) 10/01/20 10/01/20 Range/Units 11:55 13:26 WBC (4.5-11.0) X10^3/uL RBC (4.5-5.9) X10^6/uL Hgb (13.5-17.5) g/dL Hct (41-53) % MCV (80-100) fL MCH (26-34) PG MCHC (30-36) % RDW (11.6-14.8) % Plt Count (150-400) X10^3/uL Neut % (Auto) (50-75) % Lymph % (Auto) (25-40) % [place] % (Auto) (3-14) % Eos % (Auto) (2-4) % Baso % (Auto) (0-2) % Neut # (Auto) (1450-0244) /uL Lymph # (Auto) (1437-9979) /uL [place] # (Auto) (0-900) /uL Eos # (Auto) (0-450) /uL Baso # (Auto) (0-100) /uL PT (10.1-12.7) SECONDS INR (0.9-1.3) APTT (26.4-36.2) SECONDS Sodium 137 (137-145) mmol/L Potassium 4.7 (3.4-5.1) mmol/L Chloride 102 (98-107) mmol/L Carbon Dioxide 29 (22-32) mmol/L BUN 18 (9-20) mg/dL Creatinine 0.94 (0.66-1.25) mg/dL Estimated GFR > 60.0 (>60) mL/min BUN/Creatinine Ratio 19.1 (6-22) Glucose 95 (80-110) mg/dL Calcium 9.3 (8.4-10.2) mg/dL Total Creatine Kinase (55-170) U/L CK-MB (CK-2) CK-MB (CK-2) Rel Index Troponin I (0.01-0.034) ng/mL COVID-19 PCR Negative (Negative) Point of Care Testing Glucose POC 92 Urine Dip Bedside Urine Glucose Negative Bedside Urine Bilirubin - Negative Bedside Urine Ketone - Negative Urine Specific [place] 1.015 Bedside Urine Occult Blood - Negative Bedside Urine pH 6.0 Bedside Urine Protein - Negative Bedside Urine Urobilinogen - Negative Bedside Urine Nitrite - Negative Bedside Urine Leukocytes - Negative Esterase Imaging Data CT scan - head: Radiologist's Impression: [address] [id number] Scan ReportSigned Patient: Landen Gee WMR#: [id number]: 5Acct:[id number]/Sex: 85 / MDate of Service: 10/01/20Loc: EDAccession Number: [id number] Procedure: CT Stroke Ordering Provider: Lainey Mckeon D.O. PROCEDURE: CT STROKE INDICATIONS: slurred speech TECHNIQUE: Noncontrast 4.5 mm thick angled axial sections acquired from the foramen magnum to the vertex, with coronal reformats. For radiation dose reduction, the following was used: automated exposure control, adjustment of mA and/or kV according to patient size. COMPARISON: None. FINDINGS: Image quality: Excellent. CSF spaces: Basal cisterns are patent. No extra-axial fluid collections. The ventricles are symmetric in size and shape. Brain: No intracranial bleeds or masses. There is cerebral volume loss for age, with resultant ventricular and sulcal prominence. There are periventricular and deep white matter chronic small vessel ischemic changes. There is intracranial internal carotid artery atherosclerosis. Skull and face: Calvarium and visualized facial bones appear intact, without suspicious lesions. Sinuses: Partially visualized small mucous retention cyst or polyp seen in both maxillary antrum. IMPRESSION: No acute intracranial process. Findings were personally telephoned and discussed with Dr. Mckeon in the emergency department at 1315 hours 10/01/20. This study fulfills neurological imaging criteria for inclusion or exclusion of acute stroke therapies based on available published neurological guidelines. Dictated by: Andre Dent M.D. on 10/01/2020 at 13:12 Approved by: Andre Dent M.D. on 10/01/2020 at 13:16 CTA head and neck: Radiologist's Impression: [address] [id number] Scan ReportSigned Patient: Landen Gee WMR#: [id number]: 5Acct:[id number]/Sex: 85 / MDate of Service: 10/01/20Loc: EDAccession Number: [id number] Procedure: CT angio head and neck Ordering Provider: Lainey Mckeon D.O. PROCEDURE: CT ANGIO HEAD AND NECK INDICATIONS: dysarthria, weakness right arm TECHNIQUE: Noncontrast images were performed earlier in the day and not repeated. After the administration of intravenous contrast, 1 mm thick sections acquired from the aortic arch through the [place] of [place]. Post-contrast 4.5 mm thick sections then re-acquired from the foramen magnum to the vertex. 3-dimensional vekzvsr-dgpapehzv-iwtvzficnt (MIP) and/or volume rendering reformats were acquired of the central intracranial vasculature and neck separately. COMPARISON: [facility], US, US CAROTID BILATERAL, 11/23/2019, 15:21. [facility], US, US CAROTID DOPPLER BI, 08/26/2018, 11:16. [facility], CT, CT STROKE, 10/01/2020, 12:56. [facility], CT, CT ANGIO BRAIN AND NECK, 08/08/2015, 16:14. [facility], CT, CT ANGIO HEAD AND NECK, 08/25/2018, 21:33. [facility], CT, CT BRAIN W CON, 08/30/2015, 16:04. FINDINGS: Image quality: Excellent. BRAIN: CSF spaces: Ventricles are normal in size and shape. Basal cisterns are patent. No extra-axial fluid collections. Brain: No midline shift. No intracranial bleeds or masses. Martin-white matter interface appears intact. Skull and face: Calvarium and facial bones appear intact, without suspicious lesions. Orbits appear normal. Sinuses: Sinuses and mastoids are clear. HEAD CT ANGIOGRAPHY: Anterior circulation: Intracranial internal carotid arteries demonstrate generalized irregularity and calcification, with approximately 50% narrowing seen on each side. The flow within the paired anterior cerebral arteries is normal and symmetric. The flow within the middle cerebral arteries is normal and symmetric. The anterior communicating artery is seen. No aneurysms are seen. Posterior circulation: Visualized portions of the vertebral arteries demonstrate normal caliber, and join to form a normal appearing basilar artery. Flow within the posterior cerebral arteries is normal and symmetric. No aneurysms are seen. NECK CT ANGIOGRAPHY: Carotid system: The great vessels demonstrate a conventional anatomy as they arise from the aortic arch. The origins of the common carotid arteries appear patent. The common carotid arteries demonstrate normal caliber and courses. Focal atherosclerotic calcification and irregularity can be seen involving the left proximal internal carotid artery. There is approximately 90% stenosis at this site. Apparent prior right carotid endarterectomy changes are seen. The more distal internal carotid arteries demonstrate normal course and caliber. Posterior circulation: The origins of the vertebral arteries both appear widely patent. The more superior extracranial portions of both vertebral arteries also demonstrate normal courses and calibers. They join to form a normal appearing basilar artery. Soft tissues: Visualized neck soft tissues demonstrate no suspicious abnormalities. A left-sided pacer device is seen. Bones: No suspicious bony lesions. Relatively prominent cervical spine degenerative changes are seen. There is an apparent bony excrescence seen along the medial aspect of the right foramen magnum, as on series 14, image 125, which is similar to the prior examination. IMPRESSION: Focal narrowing is again seen involving the left proximal internal carotid artery, with approximately 90% narrowing. Apparent prior right carotid endarterectomy. No significant intracranial arterial abnormality is seen. Incidental note is made of: Pacer device Cervical spine degenerative changes Focal calcification seen along the right aspect of the foramen magnum, as before. Any quantitative measurements of stenosis were performed using NASCET criteria. Dictated by: Jeff Ramos M.D. on 10/01/2020 at 12:20 Approved by: Jeff Ramos M.D. on 10/01/2020 at 12:28 ECG Data Attestation: I personally reviewed and interpreted this ECG as follows: Prior ECG tracings: available for review Interpretation: Dual paced rhythm rate of 60, P are 192 QRS 8186 and QTC of 518. Similar to prior from 08/25/28. MDM Narrative Medical decision making narrative: This is an 85-year-old male who comes to the emergency department with acute onset neurologic symptoms including dysarthria, as well as difficulty with use and paresthesias in his right upper extremity. Patient states upper extremity has resolved and he feels like his speech is improving. He did not really have dysarthria but does mumble a little. Patient states he seems like he is back at baseline and per EMS the felt like he likely was back to normal. 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 Initially hypertensive at 185 but is becoming more hypertensive during his stay and labetalol was ordered and BP did improve. Aspirin was held as patient is supratherapeutic on his INR along with taking Plavix daily. [place] this would increase his risk for bleed significantly particularly with his hypertension. Spoke with Dr. Newell who accepts for observation. Stroke Core Measures Contraindications for TPA in CVA: SBP>185;DBP>110 Despite Repeated Treatment and Determinations (and INR of 4) Discharge Plan Departure Patient Disposition: Admitted as Observation Clinical Impression: TIA (transient ischemic attack), Hypertension Admit Date/Time: 10/01/20 15:09 Admit Provider: Tremaine Plummer
[2020-10-01 13:05] LABS: Add Manual Diff / Slide Review NO; Basophils Absolute Auto 100 /uL (0-100); Basophils Percent Auto 0.7 % (0-2); Eosinophils Absolute Auto 0 /uL (0-450); Hematocrit 43.9 % (41-53); Hemoglobin 14.5 g/dL (13.5-17.5); Lymphocytes Absolute Auto 1600 /uL (1100-4500); Lymphocytes Percent Auto 16.5 % (25-40); Mean Corpuscular Hemoglobin 30.3 PG (26-34); Monocytes Absolute Auto 900 /uL (0-900); Monocytes Percent Auto 9.8 % (3-14); Neutrophils Absolute Auto 7000 /uL (1500-7000); Platelet Count 229 X10^3/uL (150-400); Red Blood Cell Count 4.77 X10^6/uL (4.5-5.9); Red Cell Distribution Width 15.3 % (11.6-14.8); White Blood Cell Count 9.6 X10^3/uL (4.5-11.0)
[2020-10-01 13:10] LABS: Prothrombin Time 45.5 SECONDS (10.1-12.7)
[2020-10-01 13:12] LABS: Creatine Kinase 75 U/L (55-170)
[2020-10-01 13:13] LABS: PTT Partial Thromboplastin Tim 49 SECONDS (26.4-36.2)
[2020-10-01 13:25] LABS: Troponin I < 0.012 ng/mL (0.01-0.034)
[2020-10-01] MEDS: SODIUM CHLORIDE 0.9% 1,000 ML 150 ML IV (13:26)
[2020-10-01] MEDS: LABETALOL 20 MG/4 ML SYRINGE 10 MG IV (13:41)
[2020-10-01 13:50] LABS: COVID19 -Nasal RAPID Negative (Negative)
--- NOTE | 2020-10-01 15:55 | PM.HP.1 ---
History of Present Illness History of Present Illness Date Patient Seen: 10/01/20 Time Patient Seen: 15:56 Date of Onset of Symptoms: 10/01/20 Chief complaint: possible stroke Narrative: Landen Gee is an 85-year-old male with a past medical history of CAD, chronic atrial fibrillation with pacemaker placement in 2011, hypertension, hyperlipidemia, prior CVA with previous CEA and carotid stenosis, and type 2 diabetes who presented to the emergency room after noting some right hand tingling and slurred speech noted by his . Patient stated that this started around noon an lasted ultimately for about an hour. Last known normal according to the was around 9:00 a.m. per ER reports. He did not note any right-sided weakness or facial droop. He denies any recent palpable stations, chest pain, shortness of breath, fever, chills. He denies nausea, vomiting, abdominal pain, diarrhea, lower extremity swelling, or orthopnea. In the emergency room, the patient was hypertensive, but the remainder of his vital signs were unremarkable. Initial laboratory testing revealed an unremarkable CBC, INR 4.0, BMP was not obtained but troponin was negative. BMP is ordered to be added on. COVID-[address] head was negative for intracranial hemorrhage in did not show any acute infarcts. CT angiogram was performed which showed 90% stenosis of his left internal carotid artery consistent with prior imaging. Unable to obtain an MRI given his pacemaker. Patient will be admitted under observation status for presumed TIA. Current home meds: lipitor 40, metformin 1000 mg BID, metoprolol 100 mg daily, montelukast 10 mg daily, ventolin Inh q4h prn, warfarin 4 mg tablets 1.5 tab 4 times weekly, and 1 tab 3 days per week. Patient History Medical History Asthma Atrial fibrillation Coronary artery disease Diabetes Hyperlipidemia Hypertension Retinal artery branch occlusion TIA (transient ischemic attack) Vocal cord dysfunction Surgical History H/O carotid endarterectomy History of heart artery stent History of permanent cardiac pacemaker placement Status post placement of other cardiac pacemaker Family & Social History Family History (Updated 10/01/20 @ 16:35 by Tremaine Plummer DO) Father CAD (coronary artery disease) Mother Cancer Social History: household members spouse Safety & Behavioral: Feels Safe in Current Yes Environment Been Physically Hurt or No Threatened By a Person Tobacco & Substance use: Smoking Status Never smoker alcohol intake frequency a few times a month Substance Use Type does not use Meds Home Medications and Allergies Home Medications Medication Instructions Recorded Confirmed Type atorvastatin 40 mg PO BEDTIME 08/26/18 08/26/18 History metformin 1,000 mg PO 0800 08/26/18 08/26/18 History metformin 500 mg PO 1700 08/26/18 08/26/18 History metoprolol succinate 50 mg PO DAILY 08/26/18 08/26/18 History montelukast 10 mg PO DAILY 08/26/18 08/26/18 History warfarin 4 mg PO [id number] 08/26/18 08/26/18 History warfarin 6 mg PO QMWF 08/26/18 08/26/18 History clopidogrel [Plavix] 75 mg PO DAILY #30 tab 08/27/18 Rx Allergies Allergy/AdvReac Type Severity Reaction Status Date / Time No Known Drug Allergies Allergy Verified 08/25/18 20:03 Review of Systems Review of Systems Narrative: All other systems reviewed with the patient and are negative unless otherwise stated. Exam Vital Signs (past 8 hours): - 10/01/20 12:59 10/01/20 13:09 10/01/20 13:10 Temperature 97.3 F L Pulse Rate 60 63 Respiratory Rate 18 Blood Pressure 185/84 H Pulse Oximetry 98 97 10/01/20 13:30 10/01/20 13:41 10/01/20 13:46 Temperature Pulse Rate 60 60 60 Respiratory Rate 7 L 20 Blood Pressure 204/92 H 202/92 H 185/95 H Pulse Oximetry 98 97 10/01/20 14:00 10/01/20 14:13 10/01/20 14:18 Temperature Pulse Rate 60 62 60 Respiratory Rate 16 13 Blood Pressure 171/73 H 169/79 H 169/79 H Pulse Oximetry 96 95 10/01/20 14:30 10/01/20 14:55 10/01/20 15:00 Temperature Pulse Rate 60 60 60 Respiratory Rate 11 L 10 L 15 Blood Pressure 183/84 H 178/79 H 169/79 H Pulse Oximetry 98 95 95 Narrative Exam Narrative: GENERAL APPEARANCE: Well developed, well nourished, in no acute distress. SKIN: Inspection of the skin reveals no rashes, ulcerations or petechiae. HEENT: Normocephalic atraumatic, extraocular muscles are intact, oropharynx is clear and mucous membranes are moist, neck is supple without adenopathy NECK: Supple and symmetric. There was no thyroid enlargement, and no tenderness, or masses were felt. CHEST: Normal AP diameter and normal contour without any kyphoscoliosis. LUNGS: Auscultation of the lungs revealed no wheezes, rhonchi, or rales. CARDIOVASCULAR: There was a regular rate and rhythm without any murmurs, gallops, rubs. Peripheral pulses were 2+ and symmetric. ABDOMEN: Soft and nontender with normal bowel sounds. No ascites was noted. MUSCULOSKELETAL: There was no tenderness or effusions noted. Muscle strength and tone were normal. EXTREMITIES: No cyanosis, clubbing or edema. NEUROLOGIC: Alert and oriented x 3. Normal affect. Gait was normal. Strength is +5/5 in the Upper Extremities and Lower Extremities Bilaterally. Sensation to touch was normal. Objective ECG Impression: Atrial paced rhythm Imaging CT scan - head: Radiologist's impression: Focal narrowing is again seen involving the left proximal internal carotid artery, with approximately 90% narrowing. Apparent prior right carotid endarterectomy. No significant intracranial arterial abnormality is seen. Incidental note is made of: Pacer device Cervical spine degenerative changes Focal calcification seen along the right aspect of the foramen magnum, as before. Any quantitative measurements of stenosis were performed using NASCET criteria. CT non-contrast head: Radiologist's impression: No acute intracranial process. Findings were personally telephoned and discussed with Dr. Mckeon in the emergency department at 1315 hours 10/01/20. This study fulfills neurological imaging criteria for inclusion or exclusion of acute stroke therapies based on available published neurological guidelines. Labs Result Diagrams: 10/01/20 11:55 Labs: Laboratory Results - last 24 hr 10/01/20 10/01/20 10/01/20 11:55 11:55 11:55 WBC 9.6 RBC 4.77 Hgb 14.5 Hct 43.9 MCV 92.0 MCH 30.3 MCHC 33.0 RDW 15.3 H Plt Count 229 Neut % (Auto) 73.0 Lymph % (Auto) 16.5 L Taliaferro % (Auto) 9.8 Eos % (Auto) 0.0 L Baso % (Auto) 0.7 Neut # (Auto) 7000 Lymph # (Auto) 1600 Taliaferro # (Auto) 900 Eos # (Auto) 0 Baso # (Auto) 100 PT 45.5 H INR 4.0 H APTT 49 H D Total Creatine Kinase 75 CK-MB (CK-2) TNP CK-MB (CK-2) Rel Index TNP Troponin I < 0.012 COVID-19 PCR 10/01/20 13:26 WBC RBC Hgb Hct MCV MCH MCHC RDW Plt Count Neut % (Auto) Lymph % (Auto) Taliaferro % (Auto) Eos % (Auto) Baso % (Auto) Neut # (Auto) Lymph # (Auto) Taliaferro # (Auto) Eos # (Auto) Baso # (Auto) PT INR APTT Total Creatine Kinase CK-MB (CK-2) CK-MB (CK-2) Rel Index Troponin I COVID-19 PCR Negative Assessment & Plan Assessment & Plan narrative: Landen Gee is an 85-year-old male with a past medical history of CAD, chronic atrial fibrillation with pacemaker placement in 2011, hypertension, hyperlipidemia, prior CVA with previous CEA and carotid stenosis, and type 2 diabetes who presented to the emergency room after noting some right hand tingling and slurred speech noted by his . He is admitted under observation status for further observation after a likely TIA. 1. TIA, acute, present on admission, resolved -patient presented with 1 hour of a right hand tingling as well as slurred speech noted by his . Symptoms lasted for about an hour. Current stroke scale is 0. -may be related to symptomatic carotid stenosis, the patient also has atrial fibrillation but is anticoagulated on warfarin and INR is supratherapeutic. -patient had a previous admission in 2018 for a TIA. He has a history of right carotid stenosis that was operated on in the past. He had previous 90% blockage in the left internal carotid artery, however prior ultrasound showed less than 50% stenosis. Repeat CTA done this admission again shows 90% stenosis, and given new symptoms will repeat his ultrasound to see if there is again a discrepancy. -consider adding Plavix pending repeat ultrasound, per PCP notes he was taken off of Plavix in 2019 by his neurologist. -patient's blood pressure is elevated, will resume his home medications and make adjustments as necessary -unable to perform MRI given PPM. CT head negative and CTA as noted above. 2. Carotid stenosis, chronic, bilateral - patient had a previous admission in 2018 for a TIA. He has a history of right carotid stenosis that was operated on in the past. He had previous 90% blockage in the left internal carotid artery, however prior ultrasound showed less than 50% stenosis. Repeat CTA done this admission again shows 90% stenosis, and given new symptoms will repeat his ultrasound to see if there is again a discrepancy. 3. Chronic atrial fibrillation status post pacemaker placement, stable - continue telemetry, home metoprolol. 4. Type 2 diabetes, chronic - will check A1c, hold home metformin and start sliding scale insulin, carb controlled diet. 5. CAD, chronic, stable - continue warfarin on statin. Asa not on PMD list of 6. Hypertension, chronic, active -patient's blood pressure is elevated, will resume his home medications and make adjustments as necessary 7. Hyperlipidemia, chronic, stable - continue home statin 8. Supratherapeutic INR, present on admission, acute - INR 4 on admission. Will hold coumadin and continue to follow INR. Goal 2-3. No signs of active bleeding. 9. Obesity, chronic, BMI 31.5 -patient's obesity makes him higher risk for and complications from his TIA. Will order dietitian consultation. Code: Full, surrogate decision maker is the patient's . Dispo: admitted under observation status as his stay is not expected to exceed two midnights. DVT: on warfarin, INR above goal. COVID-19 COVID-19 status: Negative Scores NIHSS Level of Conciousness: Alert, keenly responsive Ask month/age: Answers both questions correctly. Open/close eyes, close hand: Performs both tasks correctly Best gaze horizontal: Normal Visual hewitt: No visual loss Facial palsy: Normal symetrical movement Left arm drift: No drift for full 10 sec Right arm drift: No drift for full 10 sec Left leg drift: No drift for full 5 sec Right leg drift: No drift for full 5 sec Limb ataxia: Absent Sensory on face/arms/legs: Normal, no sensory loss Best language: No aphasia, normal Dysarthria: Normal Extinction or inattention: No abnormality Total NIH Stroke scale score: 0
--- NOTE | 2020-10-01 16:12 | DI.US.S_ITS ---
PROCEDURE: US CAROTID DOPPLER LT INDICATIONS: TRANSIENT ISCHEMIC ATTACK TECHNIQUE: Color and pulse Doppler interrogation was performed of both carotid systems, with image documentation and velocity measurements. COMPARISON: [facility], , US CAROTID DOPPLER , 08/26/2018, 11:16. FINDINGS: Technically challenging and suboptimal study given patient's body habitus, inability to cooperate, and prior surgical history. Stenosis calculations are based on SRU (Society of Radiologists in Ultrasound) criteria. Right side: Common carotid artery peak systolic velocity: 45 cm/sec. Internal carotid artery peak systolic velocity: 19 cm/sec. Internal carotid artery end diastolic velocity: 5 cm/sec. External carotid artery peak systolic velocity: Not visible ICA/CCA peak systolic ratio: 0.4 . Martin scale imaging description: Scattered calcific plaque throughout the common carotid artery along with moderate intimal medial thickening. Color and spectral Doppler flow is not able to be detected in the region of the mid right ICA. Percent internal carotid artery stenosis: Questionably occluded . Vertebral artery: Not visible. Left side: Common carotid artery peak systolic velocity: 73 cm/sec. Internal carotid artery peak systolic velocity: 132 cm/sec. Internal carotid artery end diastolic velocity: 24 cm/sec. External carotid artery peak systolic velocity: 55 cm/sec. ICA/CCA peak systolic ratio: 1.8 . Martin scale imaging description: Heavy calcification in the left common carotid artery and particularly extensive in the carotid bulb circumferentially. Moderate subjective luminal stenosis at the proximal ICA. Percent internal carotid artery stenosis: 50-69% . Vertebral artery: Flow not visible. IMPRESSION: 1. Technically challenging and potentially inaccurate carotid ultrasound. 2. Questionable occlusion of the right internal carotid artery which is contradictory to CT imaging performed earlier the same day. This is felt to most likely be technical secondary to overlying scar tissue and lack of good acoustic window. 3. Moderate, potentially hemodynamically significant stenosis of the left proximal ICA estimated to be near 69% given ultrasound and CT data. 4. Nonvisualization of either vertebral artery. Dictated by: Ethel Guzman M.D. on 10/01/2020 at 17:59 Approved by: Ethel Guzman M.D. on 10/01/2020 at 18:05
[2020-10-01 16:45] LABS: BUN Creatinine Ratio 19.1 (6-22); Blood Urea Nitrogen 18 mg/dL (9-20); Calcium 9.3 mg/dL (8.4-10.2); Carbon Dioxide 29 mmol/L (22-32); Chloride 102 mmol/L (98-107); Estimated Glomerular Filt Rate > 60.0 mL/min (>60); Glucose 95 mg/dL (80-110); Potassium 4.7 mmol/L (3.4-5.1); Sodium 137 mmol/L (137-145)
[2020-10-01 16:46] LABS: HEMOLYSIS 60 (0-50)
[2020-10-01] MEDS: MONTELUKAST 10 MG TABLET PO (17:39)
[2020-10-01] MEDS: ATORVASTATIN 20 MG TABLET 40 MG PO (22:01)
--- NOTE | 2020-10-01 22:11 | PC.NURSE ---
SHIFT Report received from ED, care assumed 1515. Slightly hypertensive, otherwise VSS. No complaints of pain or neuro symptoms. NIH 2, related to left leg drift and inability to sense pin pricks to legs; however, I believe these findings were incidental. Up to bathroom, steady on feet. Shift without incident or recurrence of neuro symptoms. Hypertension resolved.
--- NOTE | 2020-10-02 01:43 | PC.NURSE ---
2355 patient seen and assessed. Is alert and oriented; NIH = 0. Breath sounds CTA with RA sat of 97%. HRR; telemetry reading at 1999 was BBB/v-paced. Denies nausea. BT present and is passing flatus. Denies dysuria, frequency or urgency with urination. Moves self in bed and noted to be getting up to bathroom independently. Is steady on feet but instructed to sit on edge of bed prior to getting up and if feeling weak, dizzy or lightheaded to call for staff assist; patient verbalizes understanding. Denies pain. Fall risk score is moderate.
[2020-10-02 04:00] VITALS: BP 149/72; PULSE 60; RESP 16; TEMP 36.5; O2SAT 94
[2020-10-02 05:05] LABS: INR 3.1 (0.9-1.3)
[2020-10-02 05:06] LABS: Add Manual Diff / Slide Review NO; Basophils Absolute Auto 0 /uL (0-100); Basophils Percent Auto 0.4 % (0-2); Eosinophils Absolute Auto 0 /uL (0-450); Hematocrit 40.9 % (41-53); Hemoglobin 13.6 g/dL (13.5-17.5); Lymphocytes Absolute Auto 1600 /uL (1100-4500); Lymphocytes Percent Auto 19.4 % (25-40); Mean Corpuscular HGB Conc 33.2 % (30-36); Mean Corpuscular Hemoglobin 30.4 PG (26-34); Mean Corpuscular Volume 91.4 fL (80-100); Monocytes Absolute Auto 900 /uL (0-900); Monocytes Percent Auto 10.5 % (3-14); Neutrophils Absolute Auto 5900 /uL (1500-7000); Neutrophils Percent Auto 69.7 % (50-75); Platelet Count 183 X10^3/uL (150-400); Red Blood Cell Count 4.48 X10^6/uL (4.5-5.9); Red Cell Distribution Width 15.1 % (11.6-14.8); White Blood Cell Count 8.5 X10^3/uL (4.5-11.0)
[2020-10-02 05:13] LABS: BUN Creatinine Ratio 19.8 (6-22); Blood Urea Nitrogen 18 mg/dL (9-20); Calcium 9.2 mg/dL (8.4-10.2); Carbon Dioxide 34 mmol/L (22-32); Chloride 101 mmol/L (98-107); Estimated Glomerular Filt Rate > 60.0 mL/min (>60); Glucose 119 mg/dL (80-110); HEMOLYSIS < 15 (0-50); Magnesium 1.8 mg/dL (1.6-2.3); Sodium 139 mmol/L (137-145)
[2020-10-02 05:14] LABS: Potassium 5.2 mmol/L (3.4-5.1)
[2020-10-02 05:34] LABS: Hemoglobin A1C% w Est Avg Glu 6.5 % (4.0-6.0)
[2020-10-02 05:46] LABS: TSH w/ Reflex to FT4 4.18 uIU/mL (0.47-4.68)
[2020-10-02 07:42] VITALS: BP 146/75; PULSE 60; RESP 17; TEMP 36.5; O2SAT 94
[2020-10-02 08:00] VITALS: O2SAT 96
--- NOTE | 2020-10-02 08:04 | PM.DS.1 ---
History of Present Illness History of Present Illness Date Patient Seen: 10/02/20 Time Patient Seen: 08:04 Chief complaint: possible stroke Narrative: Landen Gee is an 85-year-old male with a past medical history of CAD, chronic atrial fibrillation with pacemaker placement in 2011, hypertension, hyperlipidemia, prior CVA with previous CEA and carotid stenosis, and type 2 diabetes who presented to the emergency room after noting some right hand tingling and slurred speech noted by his . Patient stated that this started around noon an lasted ultimately for about an hour. Last known normal according to the was around 9:00 a.m. per ER reports. He did not note any right-sided weakness or facial droop. He denies any recent palpable stations, chest pain, shortness of breath, fever, chills. He denies nausea, vomiting, abdominal pain, diarrhea, lower extremity swelling, or orthopnea. In the emergency room, the patient was hypertensive, but the remainder of his vital signs were unremarkable. Initial laboratory testing revealed an unremarkable CBC, INR 4.0, BMP was not obtained but troponin was negative. BMP is ordered to be added on. COVID-[address] head was negative for intracranial hemorrhage in did not show any acute infarcts. CT angiogram was performed which showed 90% stenosis of his left internal carotid artery consistent with prior imaging. Unable to obtain an MRI given his pacemaker. Patient will be admitted under observation status for presumed TIA. Current home meds: lipitor 40, metformin 1000 mg BID, metoprolol 100 mg daily, montelukast 10 mg daily, ventolin Inh q4h prn, warfarin 4 mg tablets 1.5 tab 4 times weekly, and 1 tab 3 days per week. Discharge Providers Provider Date of admission: 10/01/20 15:09 Discharge Date: 10/02/20 Primary care physician: Godfrey Taylor MD Consults: 10/01/20 16:04 Consult to Occupational Therapy Evaluate & Treat Comment: Physician Instructions: Evaluate and treat Consult to Physical Therapy Evaluate & Treat Comment: Physician Instructions: Evaluate and Treat 10/01/20 16:21 Consult to Dietitian, Adult Routine Comment: Reason For Exam: obesity, DM, TIA Discharge provider: Tremaine Plummer DO Summary Hospital Course Discharge Diagnosis: Please see hospital course by problem list noted below Hospital Course: Landen Gee is an 85-year-old male with a past medical history of CAD, chronic atrial fibrillation with pacemaker placement in 2011, hypertension, hyperlipidemia, prior CVA with previous CEA and carotid stenosis, and type 2 diabetes who presented to the emergency room after noting some right hand tingling and slurred speech noted by his . He was admitted under observation status for further observation after a likely TIA. He had no recurrence of symptoms after admission and was discharged home the following day. 1. TIA, acute, present on admission, resolved -patient presented with 1 hour of a right hand tingling as well as slurred speech noted by his . Symptoms lasted for about an hour. Stroke scale on admission and in the ER 0. -may be related to symptomatic carotid stenosis, the patient also has atrial fibrillation but is anticoagulated on warfarin and INR is supratherapeutic. -patient had a previous admission in 2018 for a TIA. He has a history of right carotid stenosis that was operated on in the past. He had previous 90% blockage in the left internal carotid artery, however prior ultrasound showed less than 50% stenosis. Repeat CTA done this admission again shows 90% stenosis, and given new symptoms repeated the ultrasound which showed a 60-69% stenosis. -I added back plavix at this time given carotid stenosis, recommend outpatient follow up again with vascular surgery given findings. -unable to perform MRI given PPM. CT head negative for hemorrhage and CTA as noted above. 2. Carotid stenosis, chronic, bilateral - patient had a previous admission in 2018 for a TIA. He has a history of right carotid stenosis that was operated on in the past. He had previous 90% blockage in the left internal carotid artery, however prior ultrasound showed less than 50% stenosis. Repeat CTA done this admission again shows 90% stenosis, repeated the ultrasound which showed a 60-69% stenosis. - recommend outpatient follow up with vascular surgery. Patient denied history of bleeding while on plavix and warfarin, resumed plavix which was reportedly discontinued in 2019 by his neurologist. 3. Chronic atrial fibrillation status post pacemaker placement, stable - continue telemetry, home metoprolol and warfarin. 4. Type 2 diabetes, chronic, controlled - a1c 6.5% showing adequate control. held metformin during admission, safe to resume. 5. CAD, chronic, stable - continue warfarin and statin. 6. Hypertension, chronic, active -patient's blood pressure slightly elevated during admission, continued metoprolol 100 mg daily, advised to check blood pressures at home and follow up with primary care. 7. Hyperlipidemia, chronic, stable - continue home statin 8. Supratherapeutic INR, present on admission, acute - INR 4 on admission. Held coumadin x1 dose and INR improved. Safe to resume regular dosing upon discharge. 9. Obesity, chronic, BMI 31.5 Status at Discharge Cognitive/behavioral status at discharge: oriented Overall status at discharge: patient is back to baseline Exam Vital Signs (past 8 hours): - 10/02/20 04:00 Temperature 97.7 F Pulse Rate 60 Respiratory Rate 16 Blood Pressure 149/72 H Pulse Oximetry 94 Oxygen Delivery Method Room Air Oxygen Flow Rate 0 Narrative Exam Narrative: GENERAL APPEARANCE: Well developed, well nourished, in no acute distress. SKIN: Inspection of the skin reveals no rashes, ulcerations or petechiae. HEENT: Normocephalic atraumatic, extraocular muscles are intact, oropharynx is clear and mucous membranes are moist, neck is supple without adenopathy NECK: Supple and symmetric. There was no thyroid enlargement, and no tenderness, or masses were felt. CHEST: Normal AP diameter and normal contour without any kyphoscoliosis. LUNGS: Auscultation of the lungs revealed no wheezes, rhonchi, or rales. CARDIOVASCULAR: There was a regular rate and rhythm without any murmurs, gallops, rubs. Peripheral pulses were 2+ and symmetric. ABDOMEN: Soft and nontender with normal bowel sounds. No ascites was noted. MUSCULOSKELETAL: There was no tenderness or effusions noted. Muscle strength and tone were normal. EXTREMITIES: No cyanosis, clubbing or edema. NEUROLOGIC: Alert and oriented x 3. Normal affect. Gait was normal. Strength is +5/5 in the Upper Extremities and Lower Extremities Bilaterally. Sensation to touch was normal. Objective Labs Result Diagrams: 10/02/20 04:35 10/02/20 04:35 Labs: Laboratory Results - last 24 hr 10/01/20 10/01/20 10/01/20 11:55 11:55 11:55 WBC 9.6 RBC 4.77 Hgb 14.5 Hct 43.9 MCV 92.0 MCH 30.3 MCHC 33.0 RDW 15.3 H Plt Count 229 Neut % (Auto) 73.0 Lymph % (Auto) 16.5 L [place] % (Auto) 9.8 Eos % (Auto) 0.0 L Baso % (Auto) 0.7 Neut # (Auto) 7000 Lymph # (Auto) 1600 [place] # (Auto) 900 Eos # (Auto) 0 Baso # (Auto) 100 PT 45.5 H INR 4.0 H APTT 49 H D Sodium Potassium Chloride Carbon Dioxide BUN Creatinine Estimated GFR BUN/Creatinine Ratio Glucose Hemoglobin A1c Calcium Magnesium Total Creatine Kinase 75 CK-MB (CK-2) TNP CK-MB (CK-2) Rel Index TNP Troponin I < 0.012 [facility] COVID-19 PCR 10/01/20 10/01/20 10/02/20 11:55 13:26 04:35 WBC 8.5 RBC 4.48 L Hgb 13.6 Hct 40.9 L MCV 91.4 MCH 30.4 MCHC 33.2 RDW 15.1 H Plt Count 183 Neut % (Auto) 69.7 Lymph % (Auto) 19.4 L [place] % (Auto) 10.5 Eos % (Auto) 0.0 L Baso % (Auto) 0.4 Neut # (Auto) 5900 Lymph # (Auto) 1600 [place] # (Auto) 900 Eos # (Auto) 0 Baso # (Auto) 0 PT INR APTT Sodium 137 Potassium 4.7 Chloride 102 Carbon Dioxide 29 BUN 18 Creatinine 0.94 Estimated GFR > 60.0 BUN/Creatinine Ratio 19.1 Glucose 95 Hemoglobin A1c Calcium 9.3 Magnesium Total Creatine Kinase CK-MB (CK-2) CK-MB (CK-2) Rel Index Troponin I [facility] COVID-19 PCR Negative 10/02/20 10/02/20 10/02/20 04:35 04:35 04:35 WBC RBC Hgb Hct MCV MCH MCHC RDW Plt Count Neut % (Auto) Lymph % (Auto) [place] % (Auto) Eos % (Auto) Baso % (Auto) Neut # (Auto) Lymph # (Auto) [place] # (Auto) Eos # (Auto) Baso # (Auto) PT 35.0 H D INR 3.1 H APTT Sodium 139 Potassium 5.2 H Chloride 101 Carbon Dioxide 34 H BUN 18 Creatinine 0.91 Estimated GFR > 60.0 BUN/Creatinine Ratio 19.8 Glucose 119 H Hemoglobin A1c 6.5 H Calcium 9.2 Magnesium 1.8 Total Creatine Kinase CK-MB (CK-2) CK-MB (CK-2) Rel Index Troponin I TSH COVID-19 PCR 10/02/20 04:35 WBC RBC Hgb Hct MCV MCH MCHC RDW Plt Count Neut % (Auto) Lymph % (Auto) [place] % (Auto) Eos % (Auto) Baso % (Auto) Neut # (Auto) Lymph # (Auto) [place] # (Auto) Eos # (Auto) Baso # (Auto) PT INR APTT Sodium Potassium Chloride Carbon Dioxide BUN Creatinine Estimated GFR BUN/Creatinine Ratio Glucose Hemoglobin A1c Calcium Magnesium Total Creatine Kinase CK-MB (CK-2) CK-MB (CK-2) Rel Index Troponin I TSH 4.18 COVID-19 PCR PFSH Medical History Asthma Atrial fibrillation Coronary artery disease Diabetes Hyperlipidemia Hypertension Retinal artery branch occlusion TIA (transient ischemic attack) Vocal cord dysfunction Surgical History H/O carotid endarterectomy History of heart artery stent History of permanent cardiac pacemaker placement Status post placement of other cardiac pacemaker Family History (Updated 10/01/20 @ 16:35 by Tremaine Plummer DO) Father CAD (coronary artery disease) Mother Cancer Social History household members: spouse Smoking Status: Never smoker Discharge Plan Discharge Plan Patient Disposition: Home Provider Discharge Comment: You were admitted to the hospital with a TIA. MRI was unable to be performed due to your pacemaker. You had symptoms in the right side of your body and you have a blockage in an artery in your neck on the left side which can cause symptoms. You were restarted on clopidogrel, and given ultrasound results showing increasing stenosis (now 60-69%, but 90% on CTA) you should see Dr. Taylor about a follow up with the vascular surgeons to possibly put in a stent in that artery. Discharge orders & Medications Prescriptions: New clopidogrel 75 mg tablet 75 mg PO DAILY 30 Days Qty: 30 RF: 0 Continued warfarin 6 mg Tablet 6 mg PO QMWF RF: 0 warfarin 4 mg Tablet 4 mg PO [id number] RF: 0 metformin 1,000 mg Tablet 1,000 mg PO BID RF: 0 atorvastatin 40 mg Tablet 40 mg PO BEDTIME RF: 0 montelukast 10 mg Tablet 10 mg PO QPM RF: 0 metoprolol succinate 100 mg tablet extended release 24 hr 100 mg PO DAILY RF: 0 Follow up/Referrals: Godfrey Taylor MD [Primary Care Provider] - 2 Weeks Diet/Activity/Treatments Diet: Diet as Tolerated and Low-sodium Activity: As tolerated Discharge Data Primary Care Provider: Godfrey Taylor Attending Provider: Tremaine Plummer
[2020-10-02 08:46] VITALS: BP 152/77; PULSE 60
[2020-10-02] MEDS: METOPROLOL ER 50 MG TABLET 100 MG PO (08:46)
[2020-10-02] MEDS: CLOPIDOGREL 75 MG TABLET PO (08:49)
--- NOTE | 2020-10-02 10:03 | CM.DANOTE ---
Discharge Planning/Care Management DCP: assessment: initiated. Case received this morning at 0830. EMR reviewed. Went to room to meet with pt for continuation of the assessment process. RN reports that Dr. Plummer saw pt early this morning. Spouse was at bedside. He ok'd pt for home and pt left with Shawna at 0900. No d/c concerns were noted by the care team members. PCP: Dr. Taylor Payer: Medicare and a commercial insurance. CM Discharge Assessment Start: 10/02/20 10:02 Freq: Status: Active Protocol: Document 10/02/20 10:02 ITV (Rec: 10/02/20 10:02 ITV [id number]) Discharge Planning Assessment Advance Directives? No Advance Directives on File No History Provided By Medical Record Prior Living Arrangements House Household Members spouse Discharge Plan Home
== END 2020-10-02 09:15 | disposition home or self-care (01) ==
LOC: ED 14:23 → AC 15:11
PROVIDERS: Admitting Provider Internal Medicine; Emergency Provider Emergency Medicine; Family Provider Internal Medicine; PCP Internal Medicine; Referring Provider Emergency Medicine; Visit Provider Internal Medicine
DX: G45.9 Transient cerebral ischemic attack, unspecified (principal); R53.1 Weakness; R47.81 Slurred speech; I25.10 Atherosclerotic heart disease of native coronary artery without angina pectoris; I48.20 Chronic atrial fibrillation, unspecified; Z95.0 Presence of cardiac pacemaker; I10 Essential (primary) hypertension; E78.5 Hyperlipidemia, unspecified; Z86.73 Personal history of transient ischemic attack (TIA), and cerebral infarction without residual deficits; E11.9 Type 2 diabetes mellitus without complications; Z79.01 Long term (current) use of anticoagulants; Z79.84 Long term (current) use of oral hypoglycemic drugs; E66.9 Obesity, unspecified; Z68.31 Body mass index [BMI] 31.0-31.9, adult; R79.1 Abnormal coagulation profile; Z11.59 Encounter for screening for other viral diseases
CPT/HCPCS: 36415; 70450; 70496; 70498; 80048; 81003; 82550; 82962; 83036; 83735; 84443; 84484; 85025; 85610; 85730; 87635; 93005; 93882; 96361; 96374; 99284; G0378; Q9967

== ENCOUNTER 2022-01-29 17:45 | Observation (INO) | payer MEDICARE, OTHER, SELFPAY ==
[2020-10-01 15:14] VITALS: BMI 29.8
[2022-01-29] VITALS (18 sets, daily range): BP systolic 100–175; BP diastolic 49–81; PULSE 71–97; RESP 13–31; TEMP 37.2; O2SAT 90–94; BMI 28.8
--- NOTE | 2022-01-29 17:55 | DI.RAD.S_ITS ---
PROCEDURE: XR CHEST 1V INDICATIONS: chest pain TECHNIQUE: One view of the chest was acquired. COMPARISON: [facility], , CHEST 1 VIEW, 01/18/2018, 15:08. FINDINGS: Surgical changes and devices: Left chest wall pacemaker leads are in the region of right atrium and right ventricle. Lungs and pleura: Chronic mild elevation of right hemidiaphragm is again seen. Lungs are clear. No pleural effusions or pneumothorax. Mediastinum: Mildly tortuous thoracic aorta with aortic arch calcification is seen. Heart size is normal. Bones and chest wall: No suspicious bony lesions. Overlying soft tissues appear unremarkable. IMPRESSION: No acute cardiopulmonary pathology. Dictated by: Joby Smith M.D. on 01/29/2022 at 18:15 Approved by: Joby Smith M.D. on 01/29/2022 at 18:15
--- NOTE | 2022-01-29 18:07 | ED_ITS ---
HPI - Dizziness <Landen Patel MD - Last Filed: 01/30/22 00:55> General Chief Complaint: Dizziness Stated Complaint: Nausea and vomiting Time Seen by Provider: 01/29/22 18:04 Source: patient Mode of arrival: EMS Limitations: no limitations History of Present Illness HPI Narrative: The patient arrives by EMS after developing nausea & vomiting at home. He was out mowing his yard, feeling good. He suddenly developed nausea vomiting. He has no headache, URI symptoms, cough or fever chills. He has no history of chronic GI problems. Within nausea vomiting, he has no complaints of diarrhea. Of arrival here he vomited blood. He is anticoagulated with Coumadin and Plavix, he has a history of AFib and now has a pacemaker. He has no history of GI bleed. He has no melena, no recent bowel changes. He does not feel weak or dizzy. Related Data Home Medications Medication Instructions Recorded Confirmed atorvastatin 40 mg tablet 40 mg PO BEDTIME 08/26/18 10/01/20 metformin 1,000 mg tablet 1,000 mg PO BID 08/26/18 10/01/20 montelukast 10 mg tablet 10 mg PO QPM 08/26/18 10/01/20 warfarin 4 mg tablet 4 mg PO QTUTHSASU 08/26/18 10/01/20 warfarin 6 mg tablet 6 mg PO QMWF 08/26/18 10/01/20 metoprolol succinate 100 mg 100 mg PO DAILY 10/01/20 10/01/20 tablet,extended release 24 hr Allergies Allergy/AdvReac Type Severity Reaction Status Date / Time No Known Drug Allergies Allergy Verified 01/29/22 18:02 Review of Systems <Landen Patel MD - Last Filed: 01/30/22 00:55> Constitutional Constitutional: Denies anorexia, Denies body ache(s), Denies chills, Denies fatigue, Denies fever(s) and Denies headache(s) ENT Ears, Nose, Mouth, and Throat: Denies vertigo, Denies dizziness, Denies headache(s), Denies neck pain and Denies sore throat Cardiovascular Cardiovascular: Denies chest pain, Denies pedal edema, Denies lightheadedness and Denies dyspnea Respiratory Respiratory: Denies chest congestion, Denies cough and Denies dyspnea Gastrointestinal Gastrointestinal: Denies abdominal pain, Denies melena, Denies change in stool character, Denies loose stools, Reports nausea and Reports hematemesis Genitourinary Genitourinary: Denies hematuria and Denies dysuria Musculoskeletal Musculoskeletal: Denies back pain and Denies neck pain Integumentary/Breasts Skin/Breast: Denies dry skin and Denies rash Neurologic Neurologic: Denies confusion, Denies vertigo, Denies dizziness and Denies headache(s) Psychiatric Psychiatric: Denies anxiety, Denies confusion and Denies depression Endocrine Endocrine: Denies fatigue Hematologic/Lymphatic On Anticoagulants: Yes Patient History <Landen Patel MD - Last Filed: 01/30/22 00:55> Medical History Asthma Atrial fibrillation Coronary artery disease Diabetes Hyperlipidemia Hypertension Retinal artery branch occlusion TIA (transient ischemic attack) Vocal cord dysfunction Surgical History H/O carotid endarterectomy History of heart artery stent History of permanent cardiac pacemaker placement Status post placement of other cardiac pacemaker Family History Father CAD (coronary artery disease) Mother Cancer Social History household members: spouse Smoking Status: Never smoker alcohol intake: current Smoking Status: Never smoker alcohol intake frequency: a few times a month Substance Use Type: does not use Exam <Landen Patel MD - Last Filed: 01/30/22 00:55> Initial Vital Signs Initial Vital Signs: Vital Signs Pulse Rate 90 01/29/22 18:01 Respiratory Rate 22 01/29/22 18:01 Pulse Oximetry 93 01/29/22 18:01 Const General: cooperative, healthy appearing, comfortable, well developed, well groomed and No acute distress Orientation: Orientation (Intact) [facility] Head: normocephalic and atraumatic Nose: nares normal Mouth: oral mucosae normal Throat: posterior oropharynx normal Eyes General: appearance normal, both eyes and all related structures Pupils: PERRL EOM: EOM intact bilaterally Neck Neck: normal visual inspection and No JVD Resp Effort & Inspection: normal respiratory effort Auscultation: clear to auscultation bilaterally Cardio Rate: regular rate Rhythm: regular rhythm Heart Sounds: S1 normal, S2 normal and no murmurs GI Other: Soft. Nondistended. Nontender. Normal bowel sounds. No masses. Back/Spine/Pelvis Back: normal to inspection and No back tenderness Skin General: no rashes or lesions noted Neuro General: patient alert, patient awake, patient oriented x3 and no focal motor deficits Extrem General: normal to inspection, no pedal edema and no calf tenderness Psych Mental Status: mental status grossly normal Course <Landen Patel MD - Last Filed: 01/30/22 00:55> Course Course Narrative: The patient demonstrated hematemesis albeit anticoagulated on COVID. Emesis started prior to arrival, he only vomited blood 1 time. He has no history of GI bleeding. Through his ER stay he has been clinically stable. Vomiting ceased after a single dose of Zofran. He received Protonix. H/H of 14.9/43.8 is reassuring, repeat was 14.2/41.4. His INR is 3.3. He appears to be quite clinically stable, active bleeding is not suspected. I did not reverse the anti coagulation. The patient was discussed with the hospitalist, Dr. Plummer. He will be observed through the night, with her the lab test in the morning. He is on Coumadin and Plavix due to a history of AFib, he now has a pacemaker in place. EKG indicates a paced rhythm. Troponin is negative, he does have an elevated BNP. He did require oxygen in the ER. He has no chest pain, dyspnea, orthopnea or complaints of edema. This has not been addressed in the ER, hospitalist is aware. Orders Ordered: ED Orders 01/29/22 17:55 XR chest 1V Stat EKG-12 Lead Stat 01/29/22 18:28 Complete Blood Count AUTO DIFF Stat 01/29/22 20:30 BNP [NT-proBNP (BNP-Adult 18+)] Stat CBC Auto Diff [Complete Blood Count AUTO DIFF] Stat Comprehensive Metabolic Panel Stat Lipase Stat Magnesium Stat Partial Thromboplastin Time Stat Prothrombin Time INR Stat Troponin & CK Cardiac Panel Stat Acetaminophen (Acetaminophen 325 Mg Tablet) 975 mg PO Q8HR PRN PRN Reason: pain Atorvastatin Calcium (Atorvastatin 20 Mg Tablet) 40 mg PO BEDTIME EVAN Magnesium Sulfate (Magnesium Sulfate) 2 gm in 50 mls @ 25 mls/hr IV NOW ONE Stop: 01/30/22 02:43 Insulin Human Lispro (Insulin Lispro 100 Unit/Ml 3ml Vial) 0 unit SUBCUT ACHS [facility]; Protocol Metoprolol Succinate (Metoprolol Er 50 Mg Tablet) 100 mg PO DAILY [facility] Ondansetron HCl (Ondansetron 4 Mg/2 Ml Inj) 4 mg IV Q8HR PRN PRN Reason: Nausea And Vomiting Pantoprazole Sodium (Pantoprazole 40 Mg Vial) 40 mg IV BID EVAN Discontinued Medications Ondansetron HCl (Ondansetron 4 Mg/2 Ml Inj) 4 mg IV NOW ONE Stop: 01/29/22 18:03 Last Admin: 01/29/22 18:23 Dose: 4 mg Documented by: CYRUS Pantoprazole Sodium (Pantoprazole 40 Mg Vial) 40 mg IV NOW ONE Stop: 01/29/22 18:16 Last Admin: 01/29/22 18:23 Dose: 40 mg Documented by: CYRUS Vital Signs Vital signs: Vital Signs - 8 hr 01/29/22 18:01 01/29/22 18:02 01/29/22 18:30 Temperature 99.0 F Pulse Rate 90 88 97 H Respiratory Rate 22 15 18 Blood Pressure 175/81 H 152/72 H Pulse Oximetry 93 90 L 94 01/29/22 18:31 01/29/22 19:00 01/29/22 19:01 Temperature Pulse Rate 97 H 93 H 93 H Respiratory Rate 18 22 22 Blood Pressure 152/72 H 169/76 H Pulse Oximetry 92 90 L 90 L 01/29/22 19:30 01/29/22 19:44 01/29/22 20:00 Temperature Pulse Rate 91 H 87 85 Respiratory Rate 28 H 31 H 29 H Blood Pressure 148/67 H Pulse Oximetry 92 90 L 92 01/29/22 20:01 01/29/22 20:30 01/29/22 20:31 Temperature Pulse Rate 85 85 85 Respiratory Rate 29 H 22 13 Blood Pressure 128/68 101/49 L Pulse Oximetry 92 92 92 01/29/22 21:00 01/29/22 21:30 01/29/22 22:00 Temperature Pulse Rate 81 79 73 Respiratory Rate 17 17 25 H Blood Pressure 100/51 L 113/56 L Pulse Oximetry 92 93 92 01/29/22 22:30 01/29/22 23:00 01/29/22 23:30 Temperature Pulse Rate 73 71 71 Respiratory Rate 24 25 H 24 Blood Pressure 119/59 L 117/55 L 119/57 L Pulse Oximetry 93 92 92 MDM - Dizziness <Landen Patel MD - Last Filed: 01/30/22 00:55> Lab Data Result diagrams: 01/29/22 20:30 01/29/22 20:30 Labs: Lab Results 01/29/22 01/29/22 01/29/22 Range/Units 18:28 20:30 20:30 WBC 16.2 H (4.5-11.0) X10^3/uL RBC 4.72 (4.5-5.9) X10^6/uL Hgb 14.9 (13.5-17.5) g/dL Hct 43.8 (41-53) % MCV 92.9 (80-100) fL MCH 31.5 (26-34) PG MCHC 34.0 (30-36) % RDW 14.8 (11.6-14.8) % Plt Count 209 (150-400) X10^3/uL Neut % (Auto) 94.1 H (50-75) % Lymph % (Auto) 1.8 L (25-40) % [place] % (Auto) 3.8 (3-14) % Eos % (Auto) 0.1 L (2-4) % Baso % (Auto) 0.2 (0-2) % Neut # (Auto) 49016 H (1932-6717) /uL Lymph # (Auto) 300 L (0569-5150) /uL [place] # (Auto) 600 (0-900) /uL Eos # (Auto) 0 (0-450) /uL Baso # (Auto) 0 (0-100) /uL PT 38.3 H (10.1-12.7) SECONDS INR 3.3 H (0.9-1.3) APTT 42 H (26.4-36.2) SECONDS Sodium 139 (137-145) mmol/L Potassium 4.3 (3.4-5.1) mmol/L Chloride 102 (98-107) mmol/L Carbon Dioxide 26 (22-32) mmol/L BUN 23 H (9-20) mg/dL Creatinine 1.05 (0.66-1.25) mg/dL Estimated GFR > 60.0 (>60) mL/min BUN/Creatinine Ratio 21.9 (6-22) Glucose 154 H (80-110) mg/dL Calcium 9.0 (8.4-10.2) mg/dL Magnesium 1.4 L (1.6-2.3) mg/dL Total Bilirubin 2.0 H (0.2-1.3) mg/dL AST 30 (17-59) IU/L ALT 21 (<50) IU/L Alkaline Phosphatase 82 (38-126) U/L Total Creatine Kinase 73 (55-170) U/L CK-MB (CK-2) TNP CK-MB (CK-2) Rel Index TNP Troponin I < 0.012 (0.01-0.034) ng/mL NT-Pro-B Natriuret Pep (<450) pg/mL Total Protein 7.5 (6.3-8.2) g/dL Albumin 4.3 (3.5-5.0) g/dL Globulin 3.2 (1.7-4.1) g/dL Albumin/Globulin Ratio 1.3 (1.0-2.8) Lipase 88 (23-300) U/L 01/29/22/04/16 Range/Units 20:30 20:30 WBC 17.0 H (4.5-11.0) X10^3/uL RBC 4.50 (4.5-5.9) X10^6/uL Hgb 14.2 (13.5-17.5) g/dL Hct 41.4 (41-53) % MCV 92.0 (80-100) fL MCH 31.6 (26-34) PG MCHC 34.3 (30-36) % RDW 15.0 H (11.6-14.8) % Plt Count 194 (150-400) X10^3/uL Neut % (Auto) 94.1 H (50-75) % Lymph % (Auto) 1.3 L (25-40) % [place] % (Auto) 4.4 (3-14) % Eos % (Auto) 0.1 L (2-4) % Baso % (Auto) 0.1 (0-2) % Neut # (Auto) 28305 H (4540-0815) /uL Lymph # (Auto) 200 L (2841-7291) /uL [place] # (Auto) 700 (0-900) /uL Eos # (Auto) 0 (0-450) /uL Baso # (Auto) 0 (0-100) /uL PT (10.1-12.7) SECONDS INR (0.9-1.3) APTT (26.4-36.2) SECONDS Sodium (137-145) mmol/L Potassium (3.4-5.1) mmol/L Chloride (98-107) mmol/L Carbon Dioxide (22-32) mmol/L BUN (9-20) mg/dL Creatinine (0.66-1.25) mg/dL Estimated GFR (>60) mL/min BUN/Creatinine Ratio (6-22) Glucose (80-110) mg/dL Calcium (8.4-10.2) mg/dL Magnesium (1.6-2.3) mg/dL Total Bilirubin (0.2-1.3) mg/dL AST (17-59) IU/L ALT (<50) IU/L Alkaline Phosphatase (38-126) U/L Total Creatine Kinase (55-170) U/L CK-MB (CK-2) CK-MB (CK-2) Rel Index Troponin I (0.01-0.034) ng/mL NT-Pro-B Natriuret Pep 1010 H (<450) pg/mL Total Protein (6.3-8.2) g/dL Albumin (3.5-5.0) g/dL Globulin (1.7-4.1) g/dL Albumin/Globulin Ratio (1.0-2.8) Lipase (23-300) U/L Imaging Data Chest x-ray: Radiologist's Impression: No acute findings Critical Care Time <Landen Patel MD - Last Filed: 01/30/22 00:55> Critical Care Time Critical Care Time: Yes Total Critical Care Time: 60 Attestation: Time includes initial assessment of the patient, evaluation of Radiology, EKG and lab data, and multiple clinical decisions. Time includes informing the patient of the clinical situation and discussing the situation with admitting hospitalist. Discharge Plan Departure Patient Disposition: Admitted as Observation Clinical Impression: Gastrointestinal hemorrhage with hematemesis, Supratherapeutic INR, Chronic a- fib, Diabetes, CHF (congestive heart failure) Admit Date/Time: 01/29/22 23:32 Admit Provider: Tremaine Plummer
[2022-01-29] MEDS: ONDANSETRON 4 MG/2 ML INJ IV (18:23)
[2022-01-29] MEDS: PANTOPRAZOLE 40 MG VIAL IV (18:23)
[2022-01-29 18:43] LABS: Add Manual Diff / Slide Review NO; Basophils Absolute Auto 0 /uL (0-100); Basophils Percent Auto 0.2 % (0-2); Eosinophils Absolute Auto 0 /uL (0-450); Eosinophils Percent Auto 0.1 % (2-4); Hematocrit 43.8 % (41-53); Hemoglobin 14.9 g/dL (13.5-17.5); Lymphocytes Absolute Auto 300 /uL (1100-4500); Lymphocytes Percent Auto 1.8 % (25-40); Mean Corpuscular Hemoglobin 31.5 PG (26-34); Mean Corpuscular Volume 92.9 fL (80-100); Monocytes Absolute Auto 600 /uL (0-900); Monocytes Percent Auto 3.8 % (3-14); Neutrophils Absolute Auto 15200 /uL (1500-7000); Neutrophils Percent Auto 94.1 % (50-75); Platelet Count 209 X10^3/uL (150-400); Red Blood Cell Count 4.72 X10^6/uL (4.5-5.9); Red Cell Distribution Width 14.8 % (11.6-14.8); White Blood Cell Count 16.2 X10^3/uL (4.5-11.0)
[2022-01-29 20:58] LABS: INR 3.3 (0.9-1.3); Prothrombin Time 38.3 SECONDS (10.1-12.7)
[2022-01-29 21:01] LABS: PTT Partial Thromboplastin Tim 42 SECONDS (26.4-36.2)
[2022-01-29 21:03] LABS: Alanine Aminotransferase 21 IU/L (<50); Albumin 4.3 g/dL (3.5-5.0); Albumin Globulin Ratio 1.3 (1.0-2.8); Alkaline Phosphatase 82 U/L (38-126); Aspartate Aminotransferase 30 IU/L (17-59); BUN Creatinine Ratio 21.9 (6-22); Blood Urea Nitrogen 23 mg/dL (9-20); Carbon Dioxide 26 mmol/L (22-32); Chloride 102 mmol/L (98-107); Creatine Kinase 73 U/L (55-170); Estimated Glomerular Filt Rate > 60.0 mL/min (>60); Globulin 3.2 g/dL (1.7-4.1); Glucose 154 mg/dL (80-110); HEMOLYSIS < 15 (0-50); Lipase 88 U/L (23-300); Magnesium 1.4 mg/dL (1.6-2.3); Sodium 139 mmol/L (137-145); Total Protein 7.5 g/dL (6.3-8.2)
[2022-01-29 21:11] LABS: NT-proBNP (BNP-Adult 18+) 1010 pg/mL (<450)
[2022-01-29 21:14] LABS: Potassium 4.3 mmol/L (3.4-5.1)
[2022-01-29 21:15] LABS: Troponin I < 0.012 ng/mL (0.01-0.034)
[2022-01-29 21:49] LABS: Add Manual Diff / Slide Review NO; Basophils Absolute Auto 0 /uL (0-100); Basophils Percent Auto 0.1 % (0-2); Eosinophils Absolute Auto 0 /uL (0-450); Eosinophils Percent Auto 0.1 % (2-4); Hematocrit 41.4 % (41-53); Hemoglobin 14.2 g/dL (13.5-17.5); Lymphocytes Absolute Auto 200 /uL (1100-4500); Lymphocytes Percent Auto 1.3 % (25-40); Mean Corpuscular HGB Conc 34.3 % (30-36); Mean Corpuscular Hemoglobin 31.6 PG (26-34); Monocytes Absolute Auto 700 /uL (0-900); Monocytes Percent Auto 4.4 % (3-14); Neutrophils Absolute Auto 16100 /uL (1500-7000); Neutrophils Percent Auto 94.1 % (50-75); Platelet Count 194 X10^3/uL (150-400)
--- NOTE | 2022-01-29 23:39 | PM.HP.1 ---
History of Present Illness History of Present Illness Date Patient Seen: 01/29/22 Time Patient Seen: 23:39 Chief complaint: Nausea and vomiting Narrative: Landen Gee is an 85-year-old male with a past medical history of CAD, chronic atrial fibrillation with pacemaker placement in 2011, hypertension, hyperlipidemia, prior CVA with previous CEA and carotid stenosis, and type 2 diabetes who presented to the emergency room after an episode of hematemesis. patient was in his usual state of health this morning, and went outside to mow the lawn today which actually went quite well. He had no dizziness, chest pain, shortness of breath during this. He went to rest inside but became slightly dizzy and had an episode of nonbloody and nonbilious emesis. Shortly after this according to his he had an episode of pa hematemesis. He denies any prior GI bleeding. He is on warfarin for chronic atrial fibrillation. He was admitted a couple of years ago and was found to have a significant carotid stenosis for which he underwent another carotid endarterectomy at [place], and he remains on Plavix as well. The patient currently denies any fevers, chills, melena, abdominal pain, chest pain, shortness of breath, dizziness, vision changes. In the emergency room, the patient was mildly hypertensive, and was noted to be 90% on room air and placed on a couple L of oxygen. He does not use oxygen at home. laboratory evaluation was notable for a mild leukocytosis with WBC of 17, hemoglobin likely somewhat concentrated initially at 14.9, which repeat a couple hours later went down to 14.2. His baseline hemoglobin appears to be around 13. INR was elevated at 3.3, chemistries were notable for a low magnesium of 1.4 and a mildly elevated bilirubin at 2.0. ProBNP was also elevated at 1010, troponin was undetectable. Patient History Medical History Asthma Atrial fibrillation Coronary artery disease Diabetes Hyperlipidemia Hypertension Retinal artery branch occlusion TIA (transient ischemic attack) Vocal cord dysfunction Surgical History H/O carotid endarterectomy History of heart artery stent History of permanent cardiac pacemaker placement Status post placement of other cardiac pacemaker Family & Social History Family History Father CAD (coronary artery disease) Mother Cancer Social History: household members spouse Safety & Behavioral: Feels Safe in Current Yes Environment Been Physically Hurt or No Threatened By a Person Tobacco & Substance use: Smoking Status Never smoker alcohol intake frequency a few times a month Substance Use Type does not use Meds Home Medications and Allergies Home Medications Medication Instructions Recorded Confirmed Type atorvastatin 40 mg tablet 40 mg PO BEDTIME 08/26/18 10/01/20 History metformin 1,000 mg tablet 1,000 mg PO BID 08/26/18 10/01/20 History montelukast 10 mg tablet 10 mg PO QPM 08/26/18 10/01/20 History warfarin 4 mg tablet 4 mg PO [id number] 08/26/18 10/01/20 History warfarin 6 mg tablet 6 mg PO QMWF 08/26/18 10/01/20 History metoprolol succinate 100 mg 100 mg PO DAILY 10/01/20 10/01/20 History tablet,extended release 24 hr Allergies Allergy/AdvReac Type Severity Reaction Status Date / Time No Known Drug Allergies Allergy Verified 01/29/22 18:02 Review of Systems Review of Systems Narrative: All other systems reviewed with the patient and are negative unless otherwise stated. Exam Vital Signs (past 8 hours): - 01/29/22 18:01 01/29/22 18:02 01/29/22 18:30 Temperature 99.0 F Pulse Rate 90 88 97 H Respiratory Rate 22 15 18 Blood Pressure 175/81 H 152/72 H Pulse Oximetry 93 90 L 94 01/29/22 18:31 01/29/22 19:00 01/29/22 19:01 Temperature Pulse Rate 97 H 93 H 93 H Respiratory Rate 18 22 22 Blood Pressure 152/72 H 169/76 H Pulse Oximetry 92 90 L 90 L Oxygen Delivery Method Room Air Narrative Exam Narrative: General:? Patient is well developed and well nourished, in no distress at this time. HEENT:? Normocephalic, atraumatic, extraocular muscles intact, oral pharynx is clear and mucous membranes are moist. Neck: supple and symmetric, trachea is midline, no cervical adenopathy. Negative for JVD Chest:? Normal AP diameter and contour without kyphoscoliosis, no tachypnea, equal chest rise bilaterally. Lungs:? CTA b/l no wheezing rhonchi or rales. Cardio:?RRR no m/r/g. Abdomen: S NT ND. No CVA tenderness. Musculoskeletal:? Muscle strength and tone are equal within normal limits, no deformity. Extremities: No edema or joint effusions. No cyanosis or clubbing. Skin:? Pale,? Warm to touch,dry and intact without rashes, ulcerations or petechiae.? Neuro:? Alert and orientated x3,? sensation to touch intact in all extremities, no gross deficits noted of cranial nerves. Psych:? Patient has a well-kept appearance, appropriate affect, mental status attitude thought context and judgment are appropriate for age. Objective ECG Impression: Atrial-sensed ventricular-paced rhythm Labs Result Diagrams: 01/29/22 20:30 01/29/22 20:30 Labs: Laboratory Results - last 24 hr 01/29/22 01/29/22 01/29/22 18:28 20:30 20:30 WBC 16.2 H RBC 4.72 Hgb 14.9 Hct 43.8 MCV 92.9 MCH 31.5 MCHC 34.0 RDW 14.8 Plt Count 209 Neut % (Auto) 94.1 H Lymph % (Auto) 1.8 L [place] % (Auto) 3.8 Eos % (Auto) 0.1 L Baso % (Auto) 0.2 Neut # (Auto) 61975 H Lymph # (Auto) 300 L [place] # (Auto) 600 Eos # (Auto) 0 Baso # (Auto) 0 PT 38.3 H INR 3.3 H APTT 42 H Sodium 139 Potassium 4.3 Chloride 102 Carbon Dioxide 26 BUN 23 H Creatinine 1.05 Estimated GFR > 60.0 BUN/Creatinine Ratio 21.9 Glucose 154 H Calcium 9.0 Magnesium 1.4 L Total Bilirubin 2.0 H AST 30 ALT 21 Alkaline Phosphatase 82 Total Creatine Kinase 73 CK-MB (CK-2) TNP CK-MB (CK-2) Rel Index TNP Troponin I < 0.012 NT-Pro-B Natriuret Pep Total Protein 7.5 Albumin 4.3 Globulin 3.2 Albumin/Globulin Ratio 1.3 Lipase 88 01/29/22 01/29/22 20:30 20:30 WBC 17.0 H RBC 4.50 Hgb 14.2 Hct 41.4 MCV 92.0 MCH 31.6 MCHC 34.3 RDW 15.0 H Plt Count 194 Neut % (Auto) 94.1 H Lymph % (Auto) 1.3 L [place] % (Auto) 4.4 Eos % (Auto) 0.1 L Baso % (Auto) 0.1 Neut # (Auto) 66689 H Lymph # (Auto) 200 L [place] # (Auto) 700 Eos # (Auto) 0 Baso # (Auto) 0 PT INR APTT Sodium Potassium Chloride Carbon Dioxide BUN Creatinine Estimated GFR BUN/Creatinine Ratio Glucose Calcium Magnesium Total Bilirubin AST ALT Alkaline Phosphatase Total Creatine Kinase CK-MB (CK-2) CK-MB (CK-2) Rel Index Troponin I NT-Pro-B Natriuret Pep 1010 H Total Protein Albumin Globulin Albumin/Globulin Ratio Lipase Assessment & Plan Assessment & Plan narrative: Landen Gee is an 85-year-old male with a past medical history of CAD, chronic atrial fibrillation with pacemaker placement in 2011, hypertension, hyperlipidemia, prior CVA with previous CEA and carotid stenosis, and type 2 diabetes who presented to the emergency room with an episode of hematemesis. 1. Hematemesis - Given initial episode of NBNB emesis possible afshan-huffman tear or other Upper GI source. Continue IV fluids and protonix. H/h appears relatively stable after 2 hours. Will give clears overnight. - consider surgery consultation depending on h/h trend - will stop coumadin and plavix. Patient has history of afib and carotid stenosis with carotid surgery approx. 1 year ago according to spouse 2. Chronic atrial fibrillation status post pacemaker placement, stable ?- continue telemetry, home metoprolol. 3. Type 2 diabetes, chronic ?- will check A1c, hold home metformin and start sliding scale insulin, clear liquid diet for now. 4. CAD, chronic, stable ?- continue home statin. hold home coumadin and plavix. 5. Hypertension, chronic, active -patient's blood pressure is elevated, will resume his home medications and make adjustments as necessary 6. Hyperlipidemia, chronic, stable - continue home statin 7. Supratherapeutic INR, present on admission, acute - INR 3.3 on admission. Will hold coumadin and continue to follow INR. 8. Obesity, chronic, BMI 31.5 ?-patient's obesity makes him higher risk for complications if procedure is needed for GI bleeding. Code: Full, surrogate decision maker is the patient's . Dispo: admitted under observation status as his stay is not expected to exceed two midnights. DVT: on warfarin, INR above goal. I have utilized all available immediate resources to obtain, update, or review the patient's current medications. Time Spent With Patient Critical Care time: I spent a total of [] minutes of critical care time on this patient's care today; this time is exclusive of procedural time. Quality MIPS - Admit I confirm the patient?s Advance Care Plan is present, Code status is documented, Surrogate decision maker is in patient?s record [If Yes, STOP here]: Yes
[2022-01-30] VITALS (10 sets, daily range): BP systolic 92–115; BP diastolic 51–57; PULSE 60–71; RESP 17–28; TEMP 36.7–37.5; O2SAT 88–97; BMI 28.8
[2022-01-30 00:34] LABS: COVID19 -Nasal RAPID Negative (Negative)
[2022-01-30] MEDS: MAGNESIUM SULFATE 2 GM/50 ML PIGGYBACK IV (01:05)
[2022-01-30 05:17] LABS: INR 3.1 (0.9-1.3); Prothrombin Time 36.8 SECONDS (10.1-12.7)
[2022-01-30 05:19] LABS: Add Manual Diff / Slide Review NO; Basophils Absolute Auto 0 /uL (0-100); Basophils Percent Auto 0.1 % (0-2); Eosinophils Absolute Auto 0 /uL (0-450); Hematocrit 40.3 % (41-53); Hemoglobin 13.7 g/dL (13.5-17.5); Lymphocytes Absolute Auto 500 /uL (1100-4500); Lymphocytes Percent Auto 2.5 % (25-40); Mean Corpuscular Hemoglobin 31.3 PG (26-34); Monocytes Absolute Auto 800 /uL (0-900); Monocytes Percent Auto 4.2 % (3-14); Neutrophils Absolute Auto 17500 /uL (1500-7000); Neutrophils Percent Auto 93.2 % (50-75); Platelet Count 169 X10^3/uL (150-400); Red Blood Cell Count 4.38 X10^6/uL (4.5-5.9); Red Cell Distribution Width 14.5 % (11.6-14.8); White Blood Cell Count 18.7 X10^3/uL (4.5-11.0)
[2022-01-30 05:30] LABS: Alanine Aminotransferase 19 IU/L (<50); Albumin 3.8 g/dL (3.5-5.0); Albumin Globulin Ratio 1.3 (1.0-2.8); Alkaline Phosphatase 63 U/L (38-126); Aspartate Aminotransferase 25 IU/L (17-59); BUN Creatinine Ratio 25.4 (6-22); Blood Urea Nitrogen 29 mg/dL (9-20); Calcium 8.7 mg/dL (8.4-10.2); Carbon Dioxide 23 mmol/L (22-32); Chloride 103 mmol/L (98-107); Estimated Glomerular Filt Rate > 60.0 mL/min (>60); Globulin 2.9 g/dL (1.7-4.1); Glucose 141 mg/dL (80-110); HEMOLYSIS < 15 (0-50); Magnesium 1.8 mg/dL (1.6-2.3); Potassium 4.5 mmol/L (3.4-5.1); Sodium 137 mmol/L (137-145); Total Protein 6.7 g/dL (6.3-8.2)
--- NOTE | 2022-01-30 05:51 | PC.NURSE ---
Shift Note 0015 - Patient arrived from ED by stretcher, accompanied by the ED RN, patient was alert and orientedx3, responsive and follow commands. Maintained O2 support by nasal cannula at 2lpm with 91% O2 sat. No signs of cardiorespiratory distress, no nausea or vomiting. Afebrile, vital signs within acceptable limits, pt denies pain/discomfort. Lungs are bilaterally diminish. Active bowel tones. Patient uses urinals with adeqaue urine output. Patient safety maintained at all times. Will continue to monitor.
--- NOTE | 2022-01-30 07:58 | DI.CT.S_ITS ---
PROCEDURE: CT CHEST W CON INDICATIONS: hypoxic, coughing blood TECHNIQUE: After the administration of intravenous contrast, 5 mm thick sections acquired from the pulmonary apices to the posterior costophrenic angles. 1 mm axial lung, 5 mm thick coronal and sagittal reformats and 7 mm axial MIP were acquired. For radiation dose reduction, the following was used: automated exposure control, adjustment of mA and/or kV according to patient size. COMPARISON: [facility], CT, CHEST WITH CONTRAST, 03/02/2015, 12:44. [facility], CR, XR CHEST 1V, 01/29/2022, 18:01. FINDINGS: Image quality: Excellent. Lungs and pleura: Patchy consolidations are seen throughout the right lower lobe, which is suspicious for pneumonia or aspiration. Mild opacities are also seen in the posterior portion of the left lower lobe. Bronchial wall thickening is seen in the lower lobes bilaterally. Trace right pleural effusion. 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 Right lower lobe calcified pleural plaque is partially obscured by adjacent consolidation. No pneumothorax. Mediastinum: Heart size is normal. No pericardial effusion. Coronary artery calcifications are present. A subcarinal lymph node measures up to 1.4 cm in short axis diameter, nonspecific and likely reactive. Right hilar lymph nodes are seen measuring up to 0.8 cm in short axis. Thoracic aorta and central pulmonary arteries are normal in size. Esophagus is normal in caliber. No hiatal hernia. Bones and chest wall: A cardiac pacemaker is seen with pulse generator in the left chest. No suspicious bony lesions. No vertebral body compression fractures. No axillary or supraclavicular adenopathy by size criteria. Thyroid is unremarkable. Abdomen: A right renal cyst is partially imaged, which measures up to 9.4 cm in diameter. Visualized upper abdominal solid organs otherwise appear normal. Upper abdominal bowel loops are normal in caliber. IMPRESSION: 1. Consolidative opacities are seen throughout the right lower lobe and at the posterior left lung base, suspicious for pneumonia or aspiration. Trace right pleural effusion. 2. Mild mediastinal and right hilar lymphadenopathy is likely reactive. 3. 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 Dictated by: Lei Mckeon M.D. on 01/30/2022 at 8:45 Approved by: Lei Mckeon M.D. on 01/30/2022 at 8:56
--- NOTE | 2022-01-30 08:01 | DI.ECHO.S_ITS ---
[place] +---------+ [facility] +---------+ : : [address] : : : : [id number] : : : : Phone: [phone]+ Echocardiogram Report + + :Name: RONAL PALMA Study Date: 01/30/2022 Height: 68 in : :[facility] ReadingLocation: Weight: 190 lb : : Gender: Male BSA: 2.0 m2 : :: 1935 Age: 87 yrs BP: 108/57 mmHg: :Reason For Study: CONGESTIVE HEART FAILURE : :Ordering Physician: ISSA, : :YOVANNY Performed By: Adelaide Aguilar : :Referring: YOVANNY PARSONS : + + Interpretation Summary 1) Normal left ventricular thickness, size, and systolic function (EF 60-65%). 2) Normal right ventricular size and function. There is a pacemaker lead in the right ventricle. 3) There is mild aortic regurgitation. 4) Compared to the Echo done 06/13/2019, no significant change. Procedure: A two-dimensional transthoracic echocardiogram with color flow and Doppler was performed. The study quality was technically adequate. Comparison is made with the echocardiogram of 06/13/2019. The patient has a paced rhythm. The heart rate ranged between 60 bpm during the study. Left Ventricle: The left ventricle is normal in size. There is mild concentric left ventricular hypertrophy. The ejection fraction is estimated to be 60-65%. Apical wall motion abnormality may reflect pacemaker activation. Right Ventricle: There is a pacemaker lead in the right ventricle. The right ventricle is normal in size and function. Atria: The left atrial size is normal. Right atrial size is normal. There is no Doppler evidence for an interatrial shunt. Mitral Valve: The mitral valve is normal in structure and function. There is trace mitral regurgitation. Aortic Valve: The aortic valve is trileaflet. The aortic valve opens well. There is no aortic valve stenosis. There is mild aortic regurgitation. Tricuspid Valve: The tricuspid valve is normal in structure and function. There is trace tricuspid regurgitation. Pulmonic Valve: The pulmonic valve is not well seen, but is grossly normal. There is trace pulmonic regurgitation. Great Vessels: The aortic root is normal size. The ascending aorta is normal in size. The IVC is of normal diameter and collapses greater than 50% with a sniff. This suggests a low right atrial pressure of 3 mm Hg. Pericardium/ Pleura There is no pericardial effusion. There is no pleural effusion. MMode/2D Measurements & Calculations LVIDd: 4.3 cm LVOT diam: 2.2 cm LVIDs: 2.4 cm Ao root diam: 3.6 cm FS: 43.0 % asc Aorta Diam: 3.4 cm IVSd: 1.2 cm Ao Arch Diam (Prox Trans): 3.3 cm LVPWd: 1.1 cm LV funk. diameter/BSA (cm/m^2): 2.1 LV sys. diameter/BSA (cm/m^2): 1.2 LA A2 area: 19.8 cm2 RA long axis: 4.0 cm LA A4 area: 15.7 cm2 RA area: 12.1 cm2 LA length (vol): 4.9 cm RA vol: 31.4 ml LA vol: 54.2 ml RA : 15.7 ml/m2 LA vol index: 27.1 ml/m2 IVC diam: 2.0 cm RVD1 (basal): 3.1 cm RVD2 (mid): 2.6 cm TAPSE: 2.1 cm Doppler Measurements & Calculations Ao V2 max: 159.1 cm/sec LVOT Max Evangelista: 103.1 cm/sec Ao V2 mean: 121.9 cm/sec LV V1 max P.3 mmHg Ao max P.1 mmHg LV V1 VTI: 21.5 cm Ao mean P.4 mmHg ISRA(I,D): 2.4 cm2 Ao V2 VTI: 34.1 cm ISRA(V,D): 2.5 cm2 sev ratio: 0.63 ISRA indexed to BSA (cm^2/m^2): 1.2 MV E max evangelista: 56.5 cm/sec PA V2 max: 76.4 cm/sec MV A max evangelista: 75.8 cm/sec PA V2 mean: 50.1 cm/sec MV E/A: 0.74 PA mean P.1 mmHg Med Peak E' Evangelista: 4.1 cm/sec PA pr(Accel): 36.2 mmHg E/E' med: 13.8 Lat Peak E' Evangelista: 5.9 cm/sec E/E' lat: 9.6 E/e' average: 11.7 MV dec time: 0.32 sec SV(LVOT): 81.9 ml Reading Physician:12:48 PM
[2022-01-30] MEDS: PANTOPRAZOLE 40 MG VIAL IV ×2 (09:39→20:22)
[2022-01-30] MEDS: PHYTONADIONE (VIT K1) 5 MG in SODIUM CHLORIDE 0.9% 100 ML 201 ML IV (09:39)
[2022-01-30] MEDS: PIPERACILLIN/TAZO 3.375 GM in SODIUM CHLORIDE 0.9% 100 ML 25 ML IV ×2 (11:27→18:36)
[2022-01-30] MEDS: INSULIN LISPRO 100 UNIT/ML 3ML VIAL SUBCUT (11:57)
[2022-01-30 12:30] LABS: Appearance Urine UA CLEAR; Bilirubin Urine UA NEGATIVE (NEGATIVE); Color Urine UA YELLOW; Glucose Urine UA TRACE g/dL (Negative); Ketones Urine UA NEGATIVE (NEGATIVE); Leukocyte Esterase Urine UA TRACE (NEGATIVE); Nitrite Urine UA NEGATIVE (Negative); Occult Blood Urine UA NEGATIVE (Negative); Protein Urine UA NEGATIVE (Negative); Specific Gravity Urine UA 1.015 (1.000-1.035); Urobilinogen Urine UA 0.2 E.U./dL (0.2)
[2022-01-30 12:41] LABS: Bacteria Urine Occasional (0-1); Culture Indicated Urine Specimen Cultured; RBC Urine None Seen (0-5/HPF); Squamous Epithelial Cell Urine 1-5 /HPF (0-5/HPF); WBC Urine 0-1/HPF (0-5/HPF)
[2022-01-30 13:02] LABS: Hemoglobin 13.2 g/dL (13.5-17.5); Mean Corpuscular HGB Conc 33.9 % (30-36); Mean Corpuscular Hemoglobin 31.5 PG (26-34); Mean Corpuscular Volume 92.7 fL (80-100); Platelet Count 181 X10^3/uL (150-400); Red Cell Distribution Width 14.7 % (11.6-14.8); White Blood Cell Count 19.6 X10^3/uL (4.5-11.0)
--- NOTE | 2022-01-30 14:28 | P.PN_ITS ---
Subjective Subjective Date Patient Seen: 01/30/22 Time Patient Seen: 08:00 Interval history: Today he was slightly short of breath. He was coughing up small amounts of red blood. Exam Vital Signs (past 8 hours): - 01/30/22 08:00 01/30/22 11:55 01/30/22 12:00 Temperature 98.3 F Pulse Rate 60 60 Respiratory Rate 24 28 H Blood Pressure 103/54 L 109/55 L Pulse Oximetry 97 94 95 Oxygen Delivery Method Room Air Oxygen Flow Rate 2 Narrative Exam Narrative: GEN: no acute distress PULM: coarse breath sounds ABD: soft, nontender, nondistended Objective Labs Result Diagrams: 01/30/22 12:56 01/30/22 04:35 Labs: Laboratory Results - last 24 hr 01/29/22 01/29/22 01/29/22 18:28 20:30 20:30 WBC 16.2 H RBC 4.72 Hgb 14.9 Hct 43.8 MCV 92.9 MCH 31.5 MCHC 34.0 RDW 14.8 Plt Count 209 Neut % (Auto) 94.1 H Lymph % (Auto) 1.8 L [place] % (Auto) 3.8 Eos % (Auto) 0.1 L Baso % (Auto) 0.2 Neut # (Auto) 47651 H Lymph # (Auto) 300 L [place] # (Auto) 600 Eos # (Auto) 0 Baso # (Auto) 0 PT 38.3 H INR 3.3 H APTT 42 H Sodium 139 Potassium 4.3 Chloride 102 Carbon Dioxide 26 BUN 23 H Creatinine 1.05 Estimated GFR > 60.0 BUN/Creatinine Ratio 21.9 Glucose 154 H Calcium 9.0 Magnesium 1.4 L Total Bilirubin 2.0 H AST 30 ALT 21 Alkaline Phosphatase 82 Total Creatine Kinase 73 CK-MB (CK-2) TNP CK-MB (CK-2) Rel Index TNP Troponin I < 0.012 NT-Pro-B Natriuret Pep Total Protein 7.5 Albumin 4.3 Globulin 3.2 Albumin/Globulin Ratio 1.3 Lipase 88 Urine Color Urine Appearance Urine pH Ur Specific [place] Urine Protein Urine Glucose (UA) Urine Ketones Urine Occult Blood Urine Nitrate Urine Bilirubin Urine Urobilinogen Ur Leukocyte Esterase Urine RBC Urine WBC Ur Squamous Epith Cells Urine Bacteria Ur Culture Indicated? Nasal Screen MRSA (PCR) SARS-CoV-2 (PCR) 01/29/22 01/29/22 01/30/22 20:30 20:30 00:15 WBC 17.0 H RBC 4.50 Hgb 14.2 Hct 41.4 MCV 92.0 MCH 31.6 MCHC 34.3 RDW 15.0 H Plt Count 194 Neut % (Auto) 94.1 H Lymph % (Auto) 1.3 L [place] % (Auto) 4.4 Eos % (Auto) 0.1 L Baso % (Auto) 0.1 Neut # (Auto) 28112 H Lymph # (Auto) 200 L [place] # (Auto) 700 Eos # (Auto) 0 Baso # (Auto) 0 PT INR APTT Sodium Potassium Chloride Carbon Dioxide BUN Creatinine Estimated GFR BUN/Creatinine Ratio Glucose Calcium Magnesium Total Bilirubin AST ALT Alkaline Phosphatase Total Creatine Kinase CK-MB (CK-2) CK-MB (CK-2) Rel Index Troponin I NT-Pro-B Natriuret Pep 1010 H Total Protein Albumin Globulin Albumin/Globulin Ratio Lipase Urine Color Urine Appearance Urine pH Ur Specific [place] Urine Protein Urine Glucose (UA) Urine Ketones Urine Occult Blood Urine Nitrate Urine Bilirubin Urine Urobilinogen Ur Leukocyte Esterase Urine RBC Urine WBC Ur Squamous Epith Cells Urine Bacteria Ur Culture Indicated? Nasal Screen MRSA (PCR) SARS-CoV-2 (PCR) Negative 01/30/22 01/30/22 01/30/22 00:30 04:35 04:35 WBC 18.7 H RBC 4.38 L Hgb 13.7 Hct 40.3 L MCV 92.0 MCH 31.3 MCHC 34.0 RDW 14.5 Plt Count 169 Neut % (Auto) 93.2 H Lymph % (Auto) 2.5 L [place] % (Auto) 4.2 Eos % (Auto) 0.0 L Baso % (Auto) 0.1 Neut # (Auto) 79490 H Lymph # (Auto) 500 L [place] # (Auto) 800 Eos # (Auto) 0 Baso # (Auto) 0 PT INR APTT Sodium 137 Potassium 4.5 Chloride 103 Carbon Dioxide 23 BUN 29 H Creatinine 1.14 Estimated GFR > 60.0 BUN/Creatinine Ratio 25.4 H Glucose 141 H Calcium 8.7 Magnesium 1.8 Total Bilirubin 3.0 H AST 25 ALT 19 Alkaline Phosphatase 63 Total Creatine Kinase CK-MB (CK-2) CK-MB (CK-2) Rel Index Troponin I NT-Pro-B Natriuret Pep Total Protein 6.7 Albumin 3.8 Globulin 2.9 Albumin/Globulin Ratio 1.3 Lipase Urine Color Urine Appearance Urine pH Ur Specific [place] Urine Protein Urine Glucose (UA) Urine Ketones Urine Occult Blood Urine Nitrate Urine Bilirubin Urine Urobilinogen Ur Leukocyte Esterase Urine RBC Urine WBC Ur Squamous Epith Cells Urine Bacteria Ur Culture Indicated? Nasal Screen MRSA (PCR) Negative for mrsa SARS-CoV-2 (PCR) 01/30/22 01/30/22 01/30/22 04:35 11:59 12:56 WBC 19.6 H RBC 4.20 L Hgb 13.2 L Hct 39.0 L MCV 92.7 MCH 31.5 MCHC 33.9 RDW 14.7 Plt Count 181 Neut % (Auto) Lymph % (Auto) [place] % (Auto) Eos % (Auto) Baso % (Auto) Neut # (Auto) Lymph # (Auto) [place] # (Auto) Eos # (Auto) Baso # (Auto) PT 36.8 H INR 3.1 H APTT Sodium Potassium Chloride Carbon Dioxide BUN Creatinine Estimated GFR BUN/Creatinine Ratio Glucose Calcium Magnesium Total Bilirubin AST ALT Alkaline Phosphatase Total Creatine Kinase CK-MB (CK-2) CK-MB (CK-2) Rel Index Troponin I NT-Pro-B Natriuret Pep Total Protein Albumin Globulin Albumin/Globulin Ratio Lipase Urine Color Yellow Urine Appearance Clear Urine pH 5.0 Ur Specific [place] 1.015 Urine Protein Negative Urine Glucose (UA) Trace H Urine Ketones Negative Urine Occult Blood Negative Urine Nitrate Negative Urine Bilirubin Negative Urine Urobilinogen 0.2 Ur Leukocyte Esterase Trace H Urine RBC None seen Urine WBC 0-1/hpf Ur Squamous Epith Cells 1-5 /hpf Urine Bacteria Occasional (0-1) Ur Culture Indicated? Specimen cultured Nasal Screen MRSA (PCR) SARS-CoV-2 (PCR) PFSH Medical History Asthma Atrial fibrillation Coronary artery disease Diabetes Hyperlipidemia Hypertension Retinal artery branch occlusion TIA (transient ischemic attack) Vocal cord dysfunction Surgical History H/O carotid endarterectomy History of heart artery stent History of permanent cardiac pacemaker placement Status post placement of other cardiac pacemaker Family History Father CAD (coronary artery disease) Mother Cancer Social History household members: spouse Smoking Status: Never smoker alcohol intake: current Assessment & Plan Assessment & Plan narrative: Landen Gee is an 85-year-old male with a past medical history of CAD, chronic atrial fibrillation with pacemaker placement in 2011, hypertension, hyperlipidemia, prior CVA with previous CEA and carotid stenosis, and type 2 diabetes who presented to the emergency room with an episode of hematemesis. 1. Hematemesis ?- Given initial episode of NBNB emesis possible afshan-huffman tear or other Upper GI source. Continue IV fluids and protonix ?- consider surgery consultation depending on h/h trend ?- will stop coumadin and plavix. Patient has history of afib and carotid stenosis with carotid surgery approx. 1 year ago according to spouse 2. Hemoptysis with aspiration pneumonia and acute hypoxemic respiratory failure -patient had clear hemoptysis when I was present in room -etiology may be aspiration of blood into lungs vs primary pulmonary process -CT chest ordered and showed consolidation, possible aspiration pneumonia -started zosyn -ECHO ordered duet to respiratory failure and elevated BNP, but no change from prior, doubt CHF 3. Chronic atrial fibrillation status post pacemaker placement, stable ?- continue telemetry, home metoprolol -given ongoing bleeding and respiratory distress did ordered IV vitamin K 4. Type 2 diabetes, chronic ?- will check A1c, hold home metformin and start sliding scale insulin, clear liquid diet for now. 5. CAD, chronic, stable ?- continue home statin. hold home coumadin and plavix. 6. Hypertension, chronic, active -patient's blood pressure is elevated, will resume his home medications and make adjustments as necessary 7. Hyperlipidemia, chronic, stable - continue home statin 8. Supratherapeutic INR, present on admission, acute - INR 3.3 on admission. Will hold coumadin and continue to follow INR. - vitamin K given on 01/30 9. Obesity, chronic, BMI 31.5 ?-patient's obesity makes him higher risk for complications if procedure is needed for GI bleeding. Time Spent With Patient Critical Care time: I spent a total of [] minutes of critical care time on this patient's care today; this time is exclusive of procedural time. Quality VTE Deep Vein Thrombosis/Pulmonary Embolism Present on Admission: No
[2022-01-30] MEDS: ATORVASTATIN 20 MG TABLET 40 MG PO (20:22)
[2022-01-31] VITALS (13 sets, daily range): BP systolic 107–153; BP diastolic 54–73; PULSE 60–71; RESP 12–19; TEMP 36.2–37.3; O2SAT 89–98
[2022-01-31] MEDS: PIPERACILLIN/TAZO 3.375 GM in SODIUM CHLORIDE 0.9% 100 ML 25 ML IV (02:04)
[2022-01-31 05:34] LABS: Add Manual Diff / Slide Review NO; Basophils Absolute Auto 0 /uL (0-100); Basophils Percent Auto 0.1 % (0-2); Eosinophils Absolute Auto 100 /uL (0-450); Eosinophils Percent Auto 0.6 % (2-4); Hematocrit 37.6 % (41-53); Hemoglobin 12.4 g/dL (13.5-17.5); Lymphocytes Absolute Auto 800 /uL (1100-4500); Lymphocytes Percent Auto 5.3 % (25-40); Mean Corpuscular Hemoglobin 30.8 PG (26-34); Mean Corpuscular Volume 93.3 fL (80-100); Monocytes Absolute Auto 800 /uL (0-900); Monocytes Percent Auto 5.7 % (3-14); Neutrophils Absolute Auto 12800 /uL (1500-7000); Neutrophils Percent Auto 88.3 % (50-75); Platelet Count 159 X10^3/uL (150-400); Red Blood Cell Count 4.03 X10^6/uL (4.5-5.9); Red Cell Distribution Width 14.8 % (11.6-14.8); White Blood Cell Count 14.5 X10^3/uL (4.5-11.0)
[2022-01-31 05:38] LABS: INR 1.6 (0.9-1.3); Prothrombin Time 18.4 SECONDS (10.1-12.7)
[2022-01-31 05:47] LABS: Alanine Aminotransferase 15 IU/L (<50); Albumin 3.5 g/dL (3.5-5.0); Albumin Globulin Ratio 1.1 (1.0-2.8); Alkaline Phosphatase 62 U/L (38-126); Aspartate Aminotransferase 26 IU/L (17-59); Bilirubin Total 4.6 mg/dL (0.2-1.3); Blood Urea Nitrogen 30 mg/dL (9-20); Calcium 8.1 mg/dL (8.4-10.2); Carbon Dioxide 24 mmol/L (22-32); Chloride 101 mmol/L (98-107); Estimated Glomerular Filt Rate > 60.0 mL/min (>60); Globulin 3.1 g/dL (1.7-4.1); Glucose 138 mg/dL (80-110); HEMOLYSIS < 15 (0-50); Potassium 3.7 mmol/L (3.4-5.1); Sodium 134 mmol/L (137-145); Total Protein 6.6 g/dL (6.3-8.2)
[2022-01-31] MEDS: cefTRIAXone 1,000 MG in SODIUM CHLORIDE 0.9% 100 ML 200 ML IV (08:40)
[2022-01-31] MEDS: PANTOPRAZOLE 40 MG VIAL IV ×2 (08:57→21:21)
[2022-01-31] MEDS: INSULIN LISPRO 100 UNIT/ML 3ML VIAL SUBCUT (11:47)
--- NOTE | 2022-01-31 13:56 | CM.IDA ---
Initial DCP Assessment Note Pt is an 87 yo male, resident of [facility] in [place], arrives w/ N/V and coughing up blood. Possible aspiration pneumonia PCP: Godfrey Taylor Payer: [facility]/[employer] Reviewed chart, met w/patient and spouse, introduced role. Patient/spouse live together, state no local family and no children. Spouse Shawna looks after her brother who lives down the street from them. Patient is mostly indp at baseline, has been through multiple cardiac related procedures, state nothing like this. Patient admits he feels much weaker than usual. Explained PT eval was pending to assess current mobility Spouse hoping to take patient home; this BELT POLISHER reviews HH service and patient/spouse agreeable, no agency preference. Patient may be a good candidate for [facility] ([facility]) ? Requested SUZETTE Reyes, fax this referral to [facility] to investigate [facility]- [facility] PT order now in and pending initial eval Plan: DC expected as home w/spouse and HH services but awaiting PT eval to assist in determining needs upon DC MAEGAN Miramontes Discharge Planning/Care Management CM Discharge Assessment Start: 01/31/22 13:41 Freq: Status: Active Protocol: Document 01/31/22 13:41 TODD (Rec: 01/31/22 13:56 TODD [id number]) Discharge Planning Assessment Assigned Downstream [employer]omanufacturing Technician MAEGAN Thayer DPOA/Assigned Designee Name Shawna Gee, spouse Contact Information [phone] Advance Directives? No Advance Directives on File No History Provided By Patient,Significant Other, Medical Record Prior Living Arrangements House Household Members spouse Type of transporation used prior to Drives own vehicle admit Independent with ADL's Yes Is patient alert and oriented? Yes Needs Assistance With Home Chores / Shopping Patient/Family Preference Home with Home Health Barriers to Discharge Yes Comment Patient has not been out of bed much. PT pending. Home w/ spouse and HH is expected, however, patient admits to weakness and deconditioning. Patient remains observation at this time . CM team following closely Discharge Plan Home Transportation Arrangement Spouse Referrals Initiated None needed Additional Comment Following closely in case patient cannot safel return home w/spouse and HH ? No local family, no children Medicare Choice List Provided Yes SNF/HH Preference no preference Whiteboard Updated in Patient Room with Yes name and ext. # of Downstream Biomanufacturing Technician
--- NOTE | 2022-01-31 14:14 | DI.US.S_ITS ---
PROCEDURE: US ABDOMEN LIMITED INDICATIONS: rising bilirubin, eval biliary tree TECHNIQUE: Real-time focused scanning was performed of the abdomen, with image documentation. COMPARISON: [facility], CT, CT CHEST W CON, 01/30/2022, 8:35. FINDINGS: Scan quality is limited, secondary to overlying bowel gas. The liver is not well seen, yet it demonstrates normal size and no pa focal lesions. No findings of gallstones or sludge are seen. The gallbladder wall is not thickened, measuring 3 mm or less. No specific pericholecystic fluid is seen. The sonographic Garcias sign is negative. There is no biliary dilatation, the common bile duct measures 2 mm. The pancreas is not seen. A 10.2 cm cyst is incidentally noted involving the right kidney. IMPRESSION: Highly limited study, without visualization biliary dilatation. Dictated by: Jeff Ramos M.D. on 01/31/2022 at 15:33 Approved by: Jeff Ramos M.D. on 01/31/2022 at 15:35
--- NOTE | 2022-01-31 14:16 | P.PN_ITS ---
Subjective Subjective Date Patient Seen: 01/31/22 Time Patient Seen: 14:16 Interval history: Reports improved breathing today, but remains with cough and mild hemoptysis this morning. No chest pain, abdominal pain, nausea, or vomiting. Exam Vital Signs (past 8 hours): - 01/31/22 08:00 01/31/22 09:20 01/31/22 11:44 Temperature 97.8 F 97.2 F L Pulse Rate 62 60 Respiratory Rate 18 12 Blood Pressure 149/68 H 145/66 H Pulse Oximetry 93 93 93 01/31/22 12:37 Temperature Pulse Rate Respiratory Rate Blood Pressure Pulse Oximetry 93 Oxygen Delivery Method Room Air Oxygen Flow Rate 0 Narrative Exam Narrative: General:? Patient is well developed and well nourished, in no distress at this time. HEENT:? Normocephalic, atraumatic, extraocular muscles intact, oral pharynx is clear and mucous membranes are moist. Eyes are slightly jaundiced. Neck: supple and symmetric, trachea is midline, no cervical adenopathy. Negative for JVD Chest:? Normal AP diameter and contour without kyphoscoliosis, no tachypnea, equal chest rise bilaterally. Lungs:? CTA b/l no wheezing rhonchi or rales. Cardio:?RRR no m/r/g. Abdomen: S NT ND. No CVA tenderness. Musculoskeletal:? Muscle strength and tone are equal within normal limits, no deformity. Extremities: No edema or joint effusions. No cyanosis or clubbing. Skin:? Pale,? Warm to touch,dry and intact without rashes, ulcerations or petechiae.? Neuro:? Alert and orientated x3,? sensation to touch intact in all extremities, no gross deficits noted of cranial nerves. Psych:? Patient has a well-kept appearance, appropriate affect, mental status attitude thought context and judgment are appropriate for age. Objective Labs Result Diagrams: 01/31/22 04:43 01/31/22 04:43 Labs: Laboratory Results - last 24 hr 01/31/22 01/31/22 01/31/22 04:43 04:43 04:43 WBC 14.5 H RBC 4.03 L Hgb 12.4 L Hct 37.6 L MCV 93.3 MCH 30.8 MCHC 33.0 RDW 14.8 Plt Count 159 Neut % (Auto) 88.3 H Lymph % (Auto) 5.3 L Mccracken % (Auto) 5.7 Eos % (Auto) 0.6 L Baso % (Auto) 0.1 Neut # (Auto) 87316 H Lymph # (Auto) 800 L Mccracken # (Auto) 800 Eos # (Auto) 100 Baso # (Auto) 0 PT 18.4 H D INR 1.6 H Sodium 134 L Potassium 3.7 Chloride 101 Carbon Dioxide 24 BUN 30 H Creatinine 1.11 Estimated GFR > 60.0 BUN/Creatinine Ratio 27.0 H Glucose 138 H Calcium 8.1 L Magnesium 2.0 Total Bilirubin 4.6 H AST 26 ALT 15 Alkaline Phosphatase 62 Total Protein 6.6 Albumin 3.5 Globulin 3.1 Albumin/Globulin Ratio 1.1 PFSH Medical History Asthma Atrial fibrillation Coronary artery disease Diabetes Hyperlipidemia Hypertension Retinal artery branch occlusion TIA (transient ischemic attack) Vocal cord dysfunction Surgical History H/O carotid endarterectomy History of heart artery stent History of permanent cardiac pacemaker placement Status post placement of other cardiac pacemaker Family History Father CAD (coronary artery disease) Mother Cancer Social History household members: spouse Smoking Status: Never smoker alcohol intake: current Assessment & Plan Assessment & Plan narrative: Landen Gee is an 85-year-old male with a past medical history of CAD, chronic atrial fibrillation with pacemaker placement in 2011, hypertension, hyperlipidemia, prior CVA with previous CEA and carotid stenosis, and type 2 diabetes who presented to the emergency room with an episode of hematemesis. 1. Possible Hematemesis ?- Given initial episode of NBNB emesis possible afshan-huffman tear or other Upper GI source. Continue IV fluids and protonix. Possibly hemoptysis as well discussed below. ?- consider surgery consultation depending on h/h trend ?- will stop coumadin and plavix. Patient has history of afib and carotid stenosis with carotid surgery approx. 1 year ago according to spouse 2.? Hemoptysis with aspiration pneumonia and acute hypoxemic respiratory failure -patient had clear hemoptysis yesterday during examination. -etiology may be aspiration of blood into lungs vs primary pulmonary process -CT chest ordered and showed consolidation, possible aspiration pneumonia -started zosyn, changed to ceftriaxone today given bilirubin elevations. -ECHO ordered duet to respiratory failure and elevated BNP, but no change from prior, doubt CHF 3. Chronic atrial fibrillation status post pacemaker placement, stable ?- continue telemetry, home metoprolol -given ongoing bleeding and respiratory distress did ordered IV vitamin K x1 4. Type 2 diabetes, chronic ?- A1c 6.5%, hold home metformin and start sliding scale insulin, diet advanced. 5. CAD, chronic, stable ?- continue home statin. hold home coumadin and plavix. 6. Hypertension, chronic, active -patient's blood pressure is elevated, will resume his home medications and make adjustments as necessary 7. Hyperlipidemia, chronic, stable - continue home statin 8. Supratherapeutic INR, present on admission, acute - INR 3.3 on admission. Will hold coumadin and continue to follow INR. - vitamin K given on 01/30 9. Obesity, chronic, BMI 31.5 ?-patient's obesity makes him higher risk for complications if procedure is needed for GI bleeding. 10. Hyperbilirubinemia - smear ordered for poss. schistocytes given lack of AST/ALT elevation - check RUQ US to rule out biliary pathology - may be drug induced as well, changed zosyn to ceftriaxone. code: Full, surrogate decision maker is the patient's spouse. Time Spent With Patient Critical Care time: I spent a total of [] minutes of critical care time on this patient's care today; this time is exclusive of procedural time. Quality VTE Deep Vein Thrombosis/Pulmonary Embolism Present on Admission: No
--- NOTE | 2022-01-31 14:34 | CM.DPNOTE ---
Faxed referral to [facility] program per Lyndsay and received fax conf. Amy Pepper CM Assist.
--- NOTE | 2022-01-31 14:40 | PT.IIE ---
Medical History (Last Reviewed 01/29/22 @ 23:42 by Tremaine Plummer DO) Asthma Atrial fibrillation Coronary artery disease Diabetes Hyperlipidemia Hypertension Retinal artery branch occlusion TIA (transient ischemic attack) Vocal cord dysfunction Physical Therapy Inpatient Evaluation/Re-Eval M1 PT/OT-IP Prior Functional Status Start: 01/31/22 16:46 Freq: NEEDED Status: Active Protocol: Document 01/31/22 14:40 AB (Rec: 01/31/22 16:59 AB [id number]) Medical Review Prior Functional Status Medical History Reviewed Yes Communication able to make needs known; [place] Mobility and Gait pt stated that he is independent with all mobilities and ambulation without AD Social History Household Members spouse Living Arrangements House Number of Floors (Floors) One Floor Number of Stairs To Enter/Railing? 2 steps B rails to enter from the garage 3 steps L rail to enter from the front Home Environment High Toilet,Tub/Shower Home Equipment Grab Bars In Shower Additional Social History Comment spouse stated that she can only provide a little bit of assistance to pt pt stated that he has a SPC but somebody borrowed it but may be able to get it back M2 PT-IP Current Condition Start: 01/31/22 16:46 Freq: NEEDED Status: Active Protocol: Document 01/31/22 14:40 AB (Rec: 01/31/22 16:59 AB [id number]) Physical Therapy Current Condition Current Condition Evaluation Date 01/31/22 Treatment Diagnosis hematemesis; hemoptysis; generalized weakness Onset Date 01/29/22 M3 PT-IP Subjective Start: 01/31/22 16:46 Freq: NEEDED Status: Active Protocol: Document 01/31/22 14:40 AB (Rec: 01/31/22 16:59 AB [id number]) Subjective Physical Therapy Visit Type Type Initial Evaluation Visit Start Time 14:40 Visit Stop Time 15:05 Total Visit Minutes 25 Number of REPLACER Visits 0 Physical Therapy Visit Comments Patient Comments agreeable to do PT; spouse in room with pt Therapy Pain Assessment Pain Present Pain Present Denied Pain M4 PT-IP Mobility and Gait Start: 01/31/22 16:46 Freq: NEEDED Status: Active Protocol: Document 01/31/22 14:40 AB (Rec: 01/31/22 16:59 AB [id number]) PT-Bed Mobility Assessment Supine to Sit Supine to Sit Standby Assistance PT-Transfer Assessment Sit to and From Stand Sit to and from Stand Minimal Assistance,1 Person Assistance,Use of Upper Extremities Equipment Transfer Assistive Device Gait Belt,Front Wheeled Walker Orthotic/Prosthetic Devices or Brace: No Transfers Transfer Destination Chair,Toilet Transfer Technique ambulated Transfer Ability Level of Assist Minimal Assistance,1 Person Assistance,Use of Upper Extremities Comments Mobility Comments completed supine to sit SBA. pt can be impulsive. completed sit to stand min A and ambulated ~ 15 ft using FWW. increase B knee bending and stooped posture towards end of ambulation with uncontrolled descent to sit on the chair requiring assist to position trunk to chair due to pt starting to sit midway during turning to the chair. educated pt on safety. pt then requested to use the toilet. completed sit to stand min A and ambulated to the toilet using FWW min A and max cues for safety. able to maintain standing CGA using FWW for support while using the toilet. ambulated out of the toile to the chair using fWW min A and max cues to slow down. pt agreed to stay up on chair. positioned on chair . Left NAC in room to set up and took over pt's care. Gait Assessment Gait Gait Assistance Required: Minimum Assistance Distance (Feet) 15 Able to Maintain Weight Bearing Status Yes During Gait Assistive Devices Assistive Device Gait Belt,Front Wheeled Walker Orthotic/Prosthetic Devices or Brace: No Gait Deviations General Gait Pattern Antalgic,Decreased Stride Length,Decreased Feet Clearance Factors Limiting Gait Function Factors Limiting Gait Function Decreased Activity Tolerance, Decreased Strength,Poor Balance,Poor Safety Awareness PT-Balance Assessment Sitting Balance and Reactions Static Sitting Balance Ability Good Dynamic Sitting Balance Ability Good Standing Balance and Reactions Static Standing Balance Ability Fair Dynamic Standing Balance Ability Poor Device Used FWW M5 PT-IP Objective Assessments Start: 01/31/22 16:46 Freq: NEEDED Status: Active Protocol: Document 01/31/22 14:40 AB (Rec: 01/31/22 16:59 AB [id number]) Orientation Orientation/Cognition Level of Alertness Alert Orientation Name Language Function Ability Hard of Hearing Safety Awareness Decreased Safety Awareness Memory Description Short Term Impaired Gross Range of Motion Lower Extremity ROM Assessment Within Functional Limits Strength Lower Extremity Strength Hip 4-/5 Knee 4-/5 Muscle Tone Muscle Tone WNL Yes M6 PT-IP Treatment Start: 01/31/22 16:46 Freq: NEEDED Status: Active Protocol: Document 01/31/22 14:40 AB (Rec: 01/31/22 16:59 AB [id number]) Physical Therapy Treatment Education Education Provided Safety M7 PT-IP Assessment and Plan Start: 01/31/22 16:46 Freq: NEEDED Status: Active Protocol: Document 01/31/22 14:40 AB (Rec: 01/31/22 16:59 AB [id number]) PT Summary Assessment and Plan Potential Rehabilitation Potential Fair Status of Condition at Evaluation Evolving Summary Impairments Pain,ROM,Strength,Balance, Coordination,Sensation,Tone, Cognition,Bed Mobility, Transfers,Gait,Activity Tolerance Assessment Summary pt requiring min A with mobility using FWW and is impulsive. presents with decrease activity tolerance with increase unsteadiness with ambulation towards end of ambulation distance of 15 ft. spouse stated that she is not going to be able to assist pt much. pt agreed to use FWW at this time for stability and safety as pt was not using any AD prior to hospitalization. will continue to assess progress. pt at this time may require SNF rehab. Goals Bed Mobility Goal Standby Assistance Transfer Goal Standby Assistance,Front Wheeled Walker Gait Goal Standby Assistance,Front Wheel Walker Gait Distance 200 Other Goals improve ambulation using SPC or without AD SBA 250 ft up/down 2 steps B rails SBA Days to Meet Goals 10 Frequency of Treatment Frequency Of Treatment Once a Day Treatment Plan Physical Therapy Treatment Plan Bed Mobility Training,Transfer Training,Gait Training, Therapeutic Exercise,Balance Retraining,Discharge Planning, Hot or Cold Pack,Neuromuscular Re-ed,Coordination Retraining Precautions Other Precautions falls Recommendations To Nursing Amount of Assist Needed 1 Person Assist Discharge Recommendations PT Discharge Recommendations Home with 18/05 Assist Available,Home Health,SNF Rehab,Home vs SNF Equipment Needed for Home Before FWW if not safe with SPC/ Discharge without AD Transportation Needs at Discharge Private Vehicle,Wheelchair/ Cabulance
[2022-01-31] MEDS: ATORVASTATIN 20 MG TABLET 40 MG PO (21:21)
--- NOTE | 2022-01-31 23:52 | PC.NURSE ---
This RN was outside [address], [place] patients alarm go off, went to patients room (224) and saw pt already out of bed. This RN saw him lose his balance, lean to the left and fall to his knees. Patient was confused stating he didn't know where he was going. He denied pain, dizziness, nausea, headache. Pt alert and oriented, reports initial confusion on waking up but able to state name, , year, month, location, situation. ROM & CSM WNL. No injuries or skin issues noted. Pt assisted back into bed and placed in a yellow gown. Emphasized safety measures being taken and informed pt of new high fall risk status. Provided teach-back education. Coordinator notified. Post-fall huddle completed.
[2022-02-01] VITALS: BP 163/87; PULSE 84; RESP 19; TEMP 36.6; O2SAT 94
[2022-02-01 04:00] VITALS: BP 158/69; PULSE 65; RESP 18; TEMP 36.7; O2SAT 92
[2022-02-01 05:29] LABS: Add Manual Diff / Slide Review NO; Basophils Absolute Auto 0 /uL (0-100); Basophils Percent Auto 0.4 % (0-2); Eosinophils Absolute Auto 200 /uL (0-450); Eosinophils Percent Auto 1.7 % (2-4); Hematocrit 37.8 % (41-53); Hemoglobin 12.7 g/dL (13.5-17.5); Lymphocytes Absolute Auto 500 /uL (1100-4500); Lymphocytes Percent Auto 5.2 % (25-40); Mean Corpuscular HGB Conc 33.6 % (30-36); Mean Corpuscular Hemoglobin 31.3 PG (26-34); Mean Corpuscular Volume 93.1 fL (80-100); Monocytes Absolute Auto 600 /uL (0-900); Monocytes Percent Auto 6.1 % (3-14); Neutrophils Absolute Auto 9000 /uL (1500-7000); Neutrophils Percent Auto 86.6 % (50-75); Platelet Count 163 X10^3/uL (150-400); Red Blood Cell Count 4.06 X10^6/uL (4.5-5.9); Red Cell Distribution Width 14.4 % (11.6-14.8); White Blood Cell Count 10.4 X10^3/uL (4.5-11.0)
[2022-02-01 05:37] LABS: Alanine Aminotransferase 21 IU/L (<50); Albumin 3.6 g/dL (3.5-5.0); Albumin Globulin Ratio 1.1 (1.0-2.8); Alkaline Phosphatase 64 U/L (38-126); Aspartate Aminotransferase 29 IU/L (17-59); BUN Creatinine Ratio 21.2 (6-22); Bilirubin Total 3.3 mg/dL (0.2-1.3); Blood Urea Nitrogen 18 mg/dL (9-20); Calcium 8.1 mg/dL (8.4-10.2); Carbon Dioxide 26 mmol/L (22-32); Chloride 105 mmol/L (98-107); Estimated Glomerular Filt Rate > 60.0 mL/min (>60); Globulin 3.2 g/dL (1.7-4.1); Glucose 135 mg/dL (80-110); HEMOLYSIS < 15 (0-50); Sodium 136 mmol/L (137-145); Total Protein 6.8 g/dL (6.3-8.2)
[2022-02-01 05:41] LABS: INR 1.2 (0.9-1.3)
[2022-02-01 05:49] LABS: Lactate Dehydrogenase 387 U/L (313-618)
[2022-02-01 07:45] VITALS: O2SAT 92
[2022-02-01] MEDS: cefTRIAXone 1,000 MG in SODIUM CHLORIDE 0.9% 100 ML 200 ML IV (07:45)
[2022-02-01 08:00] VITALS: BP 148/82; PULSE 58; RESP 17; TEMP 36.5; O2SAT 93
[2022-02-01] MEDS: PANTOPRAZOLE 40 MG VIAL IV (08:00)
--- NOTE | 2022-02-01 08:27 | PM.DS.1 ---
History of Present Illness History of Present Illness Date Patient Seen: 02/01/22 Time Patient Seen: 08:27 Chief complaint: Nausea and vomiting Narrative: Landen Gee is an 85-year-old male with a past medical history of CAD, chronic atrial fibrillation with pacemaker placement in 2011, hypertension, hyperlipidemia, prior CVA with previous CEA and carotid stenosis, and type 2 diabetes who presented to the emergency room after an episode of hematemesis. patient was in his usual state of health this morning, and went outside to mow the lawn today which actually went quite well. He had no dizziness, chest pain, shortness of breath during this. He went to rest inside but became slightly dizzy and had an episode of nonbloody and nonbilious emesis. Shortly after this according to his he had an episode of pa hematemesis. He denies any prior GI bleeding. He is on warfarin for chronic atrial fibrillation. He was admitted a couple of years ago and was found to have a significant carotid stenosis for which he underwent another carotid endarterectomy at [facility], and he remains on Plavix as well. The patient currently denies any fevers, chills, melena, abdominal pain, chest pain, shortness of breath, dizziness, vision changes. In the emergency room, the patient was mildly hypertensive, and was noted to be 90% on room air and placed on a couple L of oxygen. He does not use oxygen at home. laboratory evaluation was notable for a mild leukocytosis with WBC of 17, hemoglobin likely somewhat concentrated initially at 14.9, which repeat a couple hours later went down to 14.2. His baseline hemoglobin appears to be around 13. INR was elevated at 3.3, chemistries were notable for a low magnesium of 1.4 and a mildly elevated bilirubin at 2.0. ProBNP was also elevated at 1010, troponin was undetectable. Discharge Providers Provider Date of admission: 01/29/22 23:32 Discharge Date: 02/01/22 Primary care physician: Godfrey Taylor MD Consults: 01/31/22 13:52 Consult to Physical Therapy Evaluate & Treat Comment: Physician Instructions: Evaluate and Treat Discharge provider: Tremaine Plummer DO Summary Hospital Course Discharge Diagnosis: Please see hospital course by problem list noted below. Hospital Course: Landen Gee is an 85-year-old male with a past medical history of CAD, chronic atrial fibrillation with pacemaker placement in 2011, hypertension, hyperlipidemia, prior CVA with previous CEA and carotid stenosis, and type 2 diabetes who presented to the emergency room with an episode of either hematemesis or hemoptysis. 1. Possible Hematemesis ?- Given initial episode of NBNB emesis possible afshan-huffman tear or other Upper GI source. Continued IV fluids and protonix initially with later hemoptysis. Unclear of initial insult at this time. Recommend continuing PPI as outpatient and holding coumadin and plavix for now. Would recommend repeat evaluation in the next week or so as an outpatient to restart one or possibly both of these medications. 2.? Hemoptysis with aspiration pneumonia and acute hypoxemic respiratory failure -patient had clear hemoptysis during examination with provider. -etiology may be aspiration of blood into lungs vs primary pulmonary process such as a bacterial pneumonia. -CT chest ordered and showed consolidation, possible aspiration pneumonia -started zosyn, changed to ceftriaxone given bilirubin elevations. Will send with 4 additional days of augmentin to complete course of therapy at home. -ECHO ordered due to respiratory failure and elevated BNP, but no change was noted from prior studies, doubt CHF 3. Chronic atrial fibrillation status post pacemaker placement, stable ?-patient was given vitamin K for reversal of warfarin. Continue to hold given presentation. Revisit warfarin and plavix with PCP as noted above. 4. Type 2 diabetes, chronic ?- A1c 6.5%, held home metformin and started sliding scale insulin, diet was advanced as tolerated. - no changes to home medications. 5. CAD, chronic, stable ?- continue home statin. held home coumadin and plavix as noted above. 6. Hypertension, chronic, active -mild hypertension through his hospital stay. Recommend checking home BPs and PCP follow up. No changes to home medications recommended on discharge. 7. Hyperlipidemia, chronic, stable - continue home statin 8. Supratherapeutic INR, present on admission, acute - INR 3.3 on admission. - vitamin K given on 01/30 - INR 1.2 on day of discharge. 9. Obesity, chronic, BMI 31.5 ?-patient's obesity makes him higher risk for complications if procedure is needed for GI bleeding. 10. Hyperbilirubinemia ?- smear ordered for poss. schistocytes given lack of AST/ALT elevation however h/h is stable on day of discharge. ?- checked RUQ US to rule out biliary pathology which was unremarkable. ?- may be drug induced as well, changed zosyn to ceftriaxone as noted above. Time Spent with Patient Time spent: Greater than 30 minutes Exam Vital Signs (past 8 hours): - 02/01/22 04:00 Temperature 98.1 F Pulse Rate 65 Respiratory Rate 18 Blood Pressure 158/69 H Pulse Oximetry 92 Oxygen Delivery Method Room Air Oxygen Flow Rate 0 Narrative Exam Narrative: General:? Patient is well developed and well nourished, in no distress at this time. HEENT:? Normocephalic, atraumatic, extraocular muscles intact, oral pharynx is clear and mucous membranes are moist. Neck: supple and symmetric, trachea is midline, no cervical adenopathy. Negative for JVD Chest:? Normal AP diameter and contour without kyphoscoliosis, no tachypnea, equal chest rise bilaterally. Lungs:? CTA b/l no wheezing rhonchi or rales. Cardio:?RRR no m/r/g. Abdomen: S NT ND. No CVA tenderness. Musculoskeletal:? Muscle strength and tone are equal within normal limits, no deformity. Extremities: No edema or joint effusions. No cyanosis or clubbing. Skin:? Pale,? Warm to touch,dry and intact without rashes, ulcerations or petechiae.? Neuro:? Alert and orientated x3,? sensation to touch intact in all extremities, no gross deficits noted of cranial nerves. Psych:? Patient has a well-kept appearance, appropriate affect, mental status attitude thought context and judgment are appropriate for age. Objective Labs Result Diagrams: 02/01/22 05:10 02/01/22 05:10 Labs: Laboratory Results - last 24 hr 02/01/22 02/01/22 02/01/22 05:10 05:10 05:10 WBC 10.4 RBC 4.06 L Hgb 12.7 L Hct 37.8 L MCV 93.1 MCH 31.3 MCHC 33.6 RDW 14.4 Plt Count 163 Neut % (Auto) 86.6 H Lymph % (Auto) 5.2 L [place] % (Auto) 6.1 Eos % (Auto) 1.7 L Baso % (Auto) 0.4 Neut # (Auto) 9000 H Lymph # (Auto) 500 L [place] # (Auto) 600 Eos # (Auto) 200 Baso # (Auto) 0 PT 14.0 H INR 1.2 Sodium 136 L Potassium 4.0 Chloride 105 Carbon Dioxide 26 BUN 18 Creatinine 0.85 Estimated GFR > 60.0 BUN/Creatinine Ratio 21.2 Glucose 135 H Calcium 8.1 L Magnesium 2.0 Total Bilirubin 3.3 H AST 29 ALT 21 Alkaline Phosphatase 64 Lactate Dehydrogenase Total Protein 6.8 Albumin 3.6 Globulin 3.2 Albumin/Globulin Ratio 1.1 02/01/22 05:10 WBC RBC Hgb Hct MCV MCH MCHC RDW Plt Count Neut % (Auto) Lymph % (Auto) [place] % (Auto) Eos % (Auto) Baso % (Auto) Neut # (Auto) Lymph # (Auto) [place] # (Auto) Eos # (Auto) Baso # (Auto) PT INR Sodium Potassium Chloride Carbon Dioxide BUN Creatinine Estimated GFR BUN/Creatinine Ratio Glucose Calcium Magnesium Total Bilirubin AST ALT Alkaline Phosphatase Lactate Dehydrogenase 387 Total Protein Albumin Globulin Albumin/Globulin Ratio PFS Medical History Asthma Atrial fibrillation Coronary artery disease Diabetes Hyperlipidemia Hypertension Retinal artery branch occlusion TIA (transient ischemic attack) Vocal cord dysfunction Surgical History H/O carotid endarterectomy History of heart artery stent History of permanent cardiac pacemaker placement Status post placement of other cardiac pacemaker Family History Father CAD (coronary artery disease) Mother Cancer Social History household members: spouse Smoking Status: Never smoker alcohol intake: current Discharge Plan Discharge Plan Patient Disposition: Home Provider Discharge Comment: You were admitted to the hospital with either vomiting blood or coughing up blood. This stopped. Continue to hold plavix and coumadin for now. Follow up with PCP ideally next week to consider restarting either coumadin or both medications depending on your symptoms. Antibiotic prescribed for pneumonia on discharge as well as medication to help prevent any bleeding from the stomach. Discharge orders & Medications Prescriptions: New pantoprazole [Protonix] 20 mg tablet,delayed release (DR/EC) 20 mg PO DAILY 30 Days Qty: 30 0RF amoxicillin-pot clavulanate 875-125 mg tablet 1 tab PO BID 4 Days Qty: 8 0RF Continued metformin 1,000 mg Tablet 1,000 mg PO BID 0RF atorvastatin 40 mg Tablet 40 mg PO BEDTIME 0RF montelukast 10 mg Tablet 10 mg PO QPM 0RF metoprolol succinate 100 mg tablet extended release 24 hr 100 mg PO DAILY 0RF Discontinued warfarin 6 mg Tablet 6 mg PO QMWF 0RF warfarin 4 mg Tablet 4 mg PO [id number] 0RF Follow up/Referrals: Godfrey Taylor MD [Primary Care Provider] - Diet/Activity/Treatments Diet: Diet as Tolerated and Carb-consistent/Diabetic Activity: As tolerated Discharge Data Primary Care Provider: Godfrey Taylor Attending Provider: Tremaine Plummer VTE Deep Vein Thrombosis/Pulmonary Embolism Present on Admission: No MIPS - DC The patient has current or prior documentation of left ventricular ejection fraction (LVEF) less than 40%, or moderate or severely depressed left ventricular systolic function.: No
[2022-02-01 09:46] VITALS: O2SAT 92
--- NOTE | 2022-02-01 11:43 | PC.NURSE ---
wants to wait for PT since patient did not work on stairs yesterday. cannot do much lifting. She bought a FWW for him. pt was SBA to the BR. he was able to get out of bed independently. He took a shower. call light in reach
--- NOTE | 2022-02-01 11:56 | CM.DPNOTE ---
Addendum entered by MAEGAN Iglesias 02/01/22 12:00: ADD: faxed face sheet, H+P, DC Summary, completed and signed F2F and HH order to [facility] Original Note: DC Note Patient has been discharged today and will be returning home w/spouse. PT evaluated and patient cleared for return home; however PT indicates patient is much below baseline and would benefit from FWW vs cane and HH Discussed HACH program w/spouse through [facility] and spouse appreciative for the referral Placed call to Shira/[facility] who explained she would not have the team to review this patient's referral for HACH until Thursday. After review on Thursday, Shira or someone from [facility] would plan to call spouse to inform her of patient's admission on to HACH program vs standard HH services (patient would get approved for one of these options) Plan: Home w/spouse, [facility] RN/PT/OT/CRA/MAEGAN, close outpatient f/u via [facility]
--- NOTE | 2022-02-01 12:27 | PT.IPTN ---
Physical Therapy Treatment Note M2 PT-IP Current Condition Start: 01/31/22 16:46 Freq: NEEDED Status: Discharge Protocol: Document 02/01/22 11:55 SP (Rec: 02/01/22 13:21 SP [id number]) Physical Therapy Current Condition Current Condition Evaluation Date 01/31/22 Treatment Diagnosis hematemesis; hemoptysis; generalized weakness Onset Date 01/29/22 M3 PT-IP Subjective Start: 01/31/22 16:46 Freq: NEEDED Status: Discharge Protocol: Document 02/01/22 11:55 SP (Rec: 02/01/22 13:21 SP [id number]) Subjective Physical Therapy Visit Type Type Treatment Note Visit Start Time 11:55 Visit Stop Time 12:27 Total Visit Minutes 32 Notes Vital taken during tx: seated in chair: BP 120/55 HR 62 SaO2 91% on RA standin/48 HR 68, denied dizziness/lightheadedness. in room when arrived, stated purchased a FWW for pt and is in the car. She completed caregiver training with pt including donning gait belt and provided physical assist required during gait, stairs and transfers w/FWW. Number of [employer]ACHINE TENDER Visits 1 Physical Therapy Visit Comments Patient Comments Pt agreeable to do PT including stair mgt assessment Patient Goals return home with to assist him 18/05. Therapy Pain Assessment Pain Present Pain Present Denied Pain M4 PT-IP Mobility and Gait Start: 01/31/22 16:46 Freq: NEEDED Status: Discharge Protocol: Document 02/01/22 11:55 SP (Rec: 02/01/22 13:21 SP [id number]) PT-Transfer Assessment Sit to and From Stand Sit to and from Stand Contact Guard Assistance, Minimal Assistance,1 Person Assistance,Use of Upper Extremities Equipment Transfer Assistive Device Gait Belt,Front Wheeled Walker Orthotic/Prosthetic Devices or Brace: No Transfers Transfer Destination Chair,Wheelchair Transfer Technique ambulated w/ FWW Transfer Ability Level of Assist Contact Guard Assistance, Minimal Assistance,1 Person Assistance,Use of Upper Extremities Comments Mobility Comments Pt sacral sitting in chair when arrived. donned gait belt, cues for correct threading. Completed Sit>stand cued scoot forward and push from chair arms, pt grabbed for FWW to pull from, CG-15% A . Stable stance w/ fWW during vital assessment. GAit assessment across room and back: no AD vs SPC vs FWW w/ [employer]ACH[employer] TENDER, WBOS initially then almost scissor step lateral trunk lean L Min A for balance support at gait belt, improved decrease trunk lean 5 %A sways SPCin RUE. [employer]ACH[employer] TENDER provided fWW with only CGA required but Mod cues for body stay inside and near back leg FWW for safety stability during pivot front chair, back step and bring FWW backfully, then reach back with slow descent cues for no plopping Min A by via gait belt support. Sit>stand CG- Brittany and cues for redirection push from chair, gait to chair in hallway approx 20ft w/FWW CGA, step pivot back to w/c Min- Mod A due to retro leaning with cues fully back step w/ FWW then reach back for w/c arms sit in w/c. Wheeled pt to stairs. Education pt and spouse on sequencing FWW positioning front step but need carry up top when get home and come back down trail behind pt (pt stands hold rail bottom step), hurry cane placment and ascend/ descend 3 stairs has to get in garage Brittany trunk support initially then decreased to CGA and Min cues for sequencign BLE and SPC. Pt was able to walk fully back to room approx 270 ft w/ FWW CG- 5%A by , [employer] TENDER followed with w/c, cued by and [employer] TENDER as needed for slower pacing to allow LLE foot clearance more consistant , followed w/c but not needed. Pt returned to chair, required cues for safety hand placement and slow descent to chair 5%A by . [employer] TENDER educated pt a fall risk and giving support during mobility, recommended / with all mobiliyt and pt and agree, memory issues and needs reminders and support balance right now. Recommended FWW at all times with mobility and HHPT for improve strength, balance and functional safety mobility, both pt and agreed and is being set up. Pt is ok to return home with to assist him /. Suggested and provided hand out for where can call to inquire about gettin one: shower bench and held shower head for safety wt showers. Gait Assessment Gait Gait Assistance Required: Minimum Assistance Distance (Feet) 270 Able to Maintain Weight Bearing Status Yes During Gait Assistive Devices Assistive Device None,Gait Belt,Straight Cane, Front Wheeled Walker Orthotic/Prosthetic Devices or Brace: No Gait Deviations General Gait Pattern Antalgic,Decreased Stride Length,Decreased Feet Clearance,Flexed Trunk,Lateral Trunk Lean,Narrow Based Gait Factors Limiting Gait Function Factors Limiting Gait Function Decreased Activity Tolerance, Decreased Strength,Difficulty Following Directions,Poor Balance,Poor Safety Awareness Comments Gait Comments Cued for increased MARCELA, stride and foot clearance, then safety body closer to FWW and stay inside back legs to allow improved stability. See mobility comments for gait assessment with no AD and SPC, not safe at this time. Stair Climbing Assessment Evaluation Level of Assist On Stairs Contact Guard Assistance, Minimal Assistance,1 Person Assistance Devices Stair Climbing Assistive Devices Straight Cane,Left Railing Technique/Endurance Stair Climbing Direction Ascend and Descend Stair Climbing Technique Step to Step Number of Steps Climbed 3 Stair Climbing Set # Repetitions (reps) 1 Comments Stair Climbing Comments step to patterning, Mod cues for sequencing hurry cane placement step advancement ascend, same step descending for improved stability worked for him. Education behind ascend, front descend good carryover. PT-Balance Assessment Sitting Balance and Reactions Static Sitting Balance Ability Good Dynamic Sitting Balance Ability Good Standing Balance and Reactions Static Standing Balance Ability Good Dynamic Standing Balance Ability Fair Device Used FWW M5 PT-IP Objective Assessments Start: 01/31/22 16:46 Freq: NEEDED Status: Discharge Protocol: Document 01/31/22 14:40 AB (Rec: 01/31/22 16:59 AB [id number]) Orientation Orientation/Cognition Level of Alertness Alert Orientation Name Language Function Ability Hard of Hearing Safety Awareness Decreased Safety Awareness Memory Description Short Term Impaired Gross Range of Motion Lower Extremity ROM Assessment Within Functional Limits Strength Lower Extremity Strength Hip 4-/5 Knee 4-/5 Muscle Tone Muscle Tone WNL Yes M6 PT-IP Treatment Start: 01/31/22 16:46 Freq: NEEDED Status: Discharge Protocol: Document 01/31/22 14:40 AB (Rec: 01/31/22 16:59 AB [id number]) Physical Therapy Treatment Education Education Provided Safety M7 PT-IP Assessment and Plan Start: 01/31/22 16:46 Freq: NEEDED Status: Discharge Protocol: Document 02/01/22 11:55 SP (Rec: 02/01/22 13:21 SP [id number]) PT Summary Assessment and Plan Potential Rehabilitation Potential Fair Status of Condition at Evaluation Evolving Summary Impairments Pain,ROM,Strength,Balance, Coordination,Sensation,Tone, Cognition,Bed Mobility, Transfers,Gait,Activity Tolerance Progress Towards Goals Progressing Toward Goals,Slow Progress due to Activity Tolerance Assessment Summary Min A during transfers and max cues proper hand placement slow descent, Min-Mod A during gait without AD and SPC due to modified scissor stepping lateral trunk lean, improved using FWW CGA with safety cues proper use and body alignment . Completed longer distance hallway 270 ft w/FWW CGA with cues slower pacing LLE foot clearance safety decrease risk for falls. Pt is ok to return home with to assist him, recommending 24/7 available assist by and HHPT for progress strength, balance toward functional mobility back to [facility]. stated can provide this for pt. Goals Bed Mobility Goal Standby Assistance Transfer Goal Standby Assistance,Front Wheeled Walker Gait Goal Standby Assistance,Front Wheel Walker Gait Distance 200 Other Goals improve ambulation using SPC or without AD SBA 250 ft up/down 2 steps B rails SBA Days to Meet Goals 10 Frequency of Treatment Frequency Of Treatment Once a Day Treatment Plan Physical Therapy Treatment Plan Bed Mobility Training,Transfer Training,Gait Training, Therapeutic Exercise,Balance Retraining,Discharge Planning, Hot or Cold Pack,Neuromuscular Re-ed,Coordination Retraining Other Recommendations and Next Treatment 5x STS, balance activities, Focus gait safety use fWW, progress LRAD when safe. Precautions Other Precautions falls Recommendations To Nursing Amount of Assist Needed 1 Person Assist Discharge Recommendations PT Discharge Recommendations Home with 24/7 Assist Available,Home Health Equipment Needed for Home Before able get FWW, recommended Discharge acquiring transfer bench and hand held shower extension for safety with showers, give DME hand out to assist locate one , stated will acquire. Transportation Needs at Discharge Private Vehicle
[2022-02-02 10:56] LABS: Haptoglobin 143 mg/dL (38-329)
== END 2022-02-01 12:30 | disposition home or self-care (01) ==
LOC: ED 19:30 → AC 23:33 → ICU 23:50 → AC 01-31 18:21
PROVIDERS: Internal Medicine; Admitting Provider Internal Medicine; Emergency Provider Emergency Medicine; Family Provider Internal Medicine; PCP Internal Medicine; Referring Provider Emergency Medicine; Visit Provider Internal Medicine
DX: J96.01 Acute respiratory failure with hypoxia (principal); R04.2 Hemoptysis; R79.1 Abnormal coagulation profile; K92.0 Hematemesis; E11.9 Type 2 diabetes mellitus without complications; I10 Essential (primary) hypertension; I48.20 Chronic atrial fibrillation, unspecified; I25.10 Atherosclerotic heart disease of native coronary artery without angina pectoris; E78.5 Hyperlipidemia, unspecified; Z95.0 Presence of cardiac pacemaker; Z86.73 Personal history of transient ischemic attack (TIA), and cerebral infarction without residual deficits; Z79.01 Long term (current) use of anticoagulants; Z79.84 Long term (current) use of oral hypoglycemic drugs; Z20.822 Contact with and (suspected) exposure to COVID-19; E66.9 Obesity, unspecified; Z68.31 Body mass index [BMI] 31.0-31.9, adult
CPT/HCPCS: 36415; 71045; 71260; 76705; 80053; 81001; 82550; 82962; 83010; 83615; 83690; 83735; 83880; 84484; 85025; 85027; 85610; 85730; 87086; 87635; 87797; 93005; 93306; 94760; 96365; 96366; 96367; 96375; 96376; 97116; 97162; 97530; 99284; 99291; C9803; G0378; C9113; J0696; J1815; J2405; J2543; J3430; J3475

== ENCOUNTER → 2022-08-18 14:14 | Outpatient (CLI) | payer MEDICARE, OTHER, SELFPAY ==
[2022-01-30 00:30] VITALS: BMI 28.8
--- NOTE | 2022-08-18 14:19 | DI.RAD.S_ITS ---
PROCEDURE: XR HIP W PEL IF DONE RT 2V INDICATIONS: PAIN IN RIGHT HIP TECHNIQUE: AP pelvis with lateral view(s) of the right hip(s). COMPARISON: None. FINDINGS: Bones: No fractures or dislocations. Asymmetric right worse than left bilateral hip joint osteoarthritic changes are seen. No evidence of avascular necrosis of femoral head. Pelvic ring appears intact. No suspicious bony lesions. Soft tissues: The visualized bowel gas pattern is normal. No suspicious soft tissue calcifications. 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 No hip fracture or dislocation. No evidence of avascular necrosis. Dictated by: Joby Smith M.D. on 08/18/2022 at 14:59 Approved by: Joby Smith M.D. on 08/18/2022 at 14:59
== END ==
PROVIDERS: Family Provider Internal Medicine; PCP Internal Medicine; Referring Provider Student in an Organized Health Care Education/Training Program; Visit Provider Student in an Organized Health Care Education/Training Program
DX: M25.551 Pain in right hip (principal); M16.0 Bilateral primary osteoarthritis of hip
CPT/HCPCS: 73502

== ENCOUNTER 2024-09-05 07:33 | Emergency (ER) | payer MEDICARE, OTHER, SELFPAY ==
[2022-01-30 00:30] VITALS: BMI 28.8
[2024-09-05] VITALS (11 sets, daily range): BP systolic 173–200; BP diastolic 79–93; PULSE 82–91; RESP 18–25; TEMP 36.6; O2SAT 90–96; BMI 27.6
--- NOTE | 2024-09-05 07:39 | DI.RAD.S_ITS ---
PROCEDURE: XR CHEST 1V INDICATIONS: abdominal pain TECHNIQUE: One view of the chest was acquired. COMPARISON: [facility], CR, XR CHEST 1V, 01/29/2022, 18:01. FINDINGS: Surgical changes and devices: Left chest wall pacemaker leads are in the region of right atrium and right ventricle. Lungs and pleura: Chronic elevation of right hemidiaphragm is seen. No focal infiltrate, pleural effusion or pneumothorax.. Mediastinum: Mediastinal contours appear normal. Heart size is enlarged. Bones and chest wall: No suspicious bony lesions. Overlying soft tissues appear unremarkable. IMPRESSION: No acute cardiopulmonary pathology. No gross free air under the diaphragm. Dictated by: Joby Smith M.D. on 09/05/2024 at 8:34 Approved by: Joby Smith M.D. on 09/05/2024 at 8:35
--- NOTE | 2024-09-05 07:45 | EKG_ITS ---
[facility] [address] [place] [address] Test Date: 2024-09-05 Pat Name: Landen Gee Department: 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
[2024-09-05 07:50] LABS: Add Manual Diff / Slide Review NO; Basophils Absolute Auto 0 /uL (0-100); Basophils Percent Auto 0.2 % (0-2); Eosinophils Absolute Auto 0 /uL (0-450); Eosinophils Percent Auto 0.1 % (2-4); Hematocrit 40.6 % (41-53); Hemoglobin 13.6 g/dL (13.5-17.5); Lymphocytes Absolute Auto 500 /uL (1100-4500); Lymphocytes Percent Auto 3.7 % (25-40); Mean Corpuscular HGB Conc 33.6 % (30-36); Mean Corpuscular Hemoglobin 31.8 PG (26-34); Mean Corpuscular Volume 94.8 fL (80-100); Monocytes Absolute Auto 700 /uL (0-900); Monocytes Percent Auto 5.1 % (3-14); Neutrophils Absolute Auto 12100 /uL (1500-7000); Neutrophils Percent Auto 90.9 % (50-75); Platelet Count 275 X10^3/uL (150-400); Red Blood Cell Count 4.29 X10^6/uL (4.5-5.9); White Blood Cell Count 13.3 X10^3/uL (4.5-11.0)
--- NOTE | 2024-09-05 07:51 | DI.CT.S_ITS ---
PROCEDURE: CT ABDOMEN PELVIS W CON INDICATIONS: acute abdominal pain TECHNIQUE: After the administration of intravenous contrast, axial sections acquired from the lung bases to the pubic symphysis. Coronal and sagittal reformats were performed. For radiation dose reduction, the following was used: automated exposure control, adjustment of mA and/or kV according to patient size. COMPARISON: None. FINDINGS: Image quality: Diagnostic. Lower Chest: Atherosclerotic vascular calcifications including severe coronary artery calcifications. Calcified pleural plaques are noted. Bibasilar atelectasis. ABDOMEN: Liver: No solid mass. Gallbladder: Likely gallstones which are not well visualized by CT. Gallbladder is distended. Biliary ducts: No biliary dilation. Pancreas: No ductal dilation. Spleen: Size is within normal limits. Adrenal Glands: No adrenal nodules. Kidneys and Ureters: The left kidney is inferiorly located within the pelvis. No hydronephrosis. No solid mass. No complex renal cystic lesion which requires follow up. Large simple appearing exophytic right renal cyst. Nonspecific perinephric stranding is noted. Stomach and Bowel: Normal colonic caliber, without significant wall thickening. Few diverticula without evidence of acute diverticulitis. Peritoneum: No abnormal intraperitoneal fluid. No free air. Ventral Wall: No significant ventral hernia. Abdominal Nodes: No retroperitoneal or mesenteric adenopathy by size criteria. Vessels: Aorta and inferior vena cava are normal in size. Atherosclerotic vascular calcifications. PELVIS: Pelvic Organs: Unremarkable. Bladder: No bladder wall thickening, accounting for underdistention. Pelvic Nodes: No enlarged lymph nodes. Miscellaneous: Large left and small right fat containing inguinal hernias. Bones: No aggressive osseous abnormality. Multilevel degenerative changes of the spine. Decreased osseous mineralization. Mild compression deformity of the superior endplate of L1, likely chronic. IMPRESSION: 1. No definite acute findings within the abdomen or pelvis to explain patient's symptoms. 2. Likely gallstones which are not well evaluated by CT. Gallbladder is distended. 3. Nonspecific bilateral perinephric stranding. 4. Few diverticula without evidence of acute diverticulitis. Dictated by: Beck Lilly M.D. on 09/05/2024 at 9:06 Approved by: Beck Lilly M.D. on 09/05/2024 at 9:15
[2024-09-05 07:59] LABS: INR 1.2 (0.9-1.3); Prothrombin Time 13.3 SECONDS (9.4-12.5)
[2024-09-05 07:59] LABS: Appearance Urine UA CLEAR; Bilirubin Urine UA NEGATIVE (NEGATIVE); Color Urine UA YELLOW; Glucose Urine UA TRACE g/dL (Negative); Ketones Urine UA 1+ (NEGATIVE); Leukocyte Esterase Urine UA NEGATIVE (NEGATIVE); Nitrite Urine UA NEGATIVE (Negative); Occult Blood Urine UA NEGATIVE (Negative); Protein Urine UA NEGATIVE (Negative); Urobilinogen Urine UA 0.2 E.U./dL (0.2); pH Urine UA 6.5 (4.5-8.0)
[2024-09-05 08:02] LABS: Urine Volume 10mL (spun)
[2024-09-05 08:02] LABS: PTT Partial Thromboplastin Tim 38 SECONDS (25.1-36.5)
--- NOTE | 2024-09-05 08:02 | ED.GENADULT ---
HPI - General Adult General Chief complaint: Abdominal Pain Stated complaint: Chest pain Time Seen by Provider: 09/05/24 07:36 Source: patient and EMS Mode of arrival: EMS History of Present Illness HPI narrative: 89-year-old gentleman with a history of atrial fibrillation, anticoagulated on warfarin, pacemaker and fully paced, hypertension, hyperlipidemia, prior stroke and was seen on July 22 with an acute intraparenchymal hematoma involving the left thalamus with vasogenic edema, he was transferred to [facility] for continued treatment of this. He called medics this morning complaining of abdominal pain that started sometime in the middle of the night. He describes it as a low cramping pain in his entire pelvis. He states that he has had a couple of episodes of diarrhea, believes his last normal stool was yesterday sometime. He clearly has some cognitive deficits and is unable to many answers with a comprehensive review of systems. He states he is currently in no acute pain Related Data Home Medications Medication Instructions Recorded Confirmed apixaban 5 mg tablet (Eliquis) 2 mg PO DAILY 09/05/24 09/05/24 aspirin 81 mg tablet 81 mg PO DAILY 09/05/24 09/05/24 lisinopril 5 mg tablet 5 mg PO DAILY 09/05/24 09/05/24 metoprolol tartrate 25 mg tablet 25 mg PO BID 09/05/24 09/05/24 Allergies Allergy/AdvReac Type Severity Reaction Status Date / Time No Known Drug Allergies Allergy Verified 07/22/24 08:37 Review of Systems Review of Systems Narrative: Pertinent positive and negative findings as per HPI Patient History Medical History (Updated 09/05/24 @ 10:33 by Jaki Ramires MD) Hemorrhagic stroke Retinal artery branch occlusion Coronary artery disease Vocal cord dysfunction TIA (transient ischemic attack) Atrial fibrillation Asthma Hypertension Hyperlipidemia Diabetes Surgical History (System 07/22/24 @ 08:37 by Nichol Robbins) Status post placement of other cardiac pacemaker History of permanent cardiac pacemaker placement History of heart artery stent H/O carotid endarterectomy Family History Father CAD (coronary artery disease) Mother Cancer Social History (System 07/22/24 @ 08:37 by Nichol Robbins) household members: spouse Smoking Status: Never smoker alcohol intake: current Smoking Status: Never smoker alcohol intake frequency: a few times a month Substance Use Type: does not use Exam Initial Vital Signs Initial Vital Signs: Vital Signs Pulse Rate 91 H 09/05/24 07:37 Pulse Oximetry 93 09/05/24 07:37 General: Chronically ill-appearing, slightly slurred and slowed speech, no acute localizing symptoms and in no acute distress HEENT: Moist mucous membranes, normal sclera with reactive pupils, Neck: No JVD, supple Respiratory: Lungs are clear to auscultation, no wheezing no rales no rhonchi. Full and symmetrical air movement Cardiac: Irregular, murmurs are not appreciated. Abdomen: Soft, minimal tenderness in the suprapubic/lower pelvic area. No rebound or guarding. No flank pain Skin: Warm and dry, no rashes Neurologic: Globally weak, states that his current weakness continues to improve but is related to recent stroke. He does not feel like he has not a new findings Genitals: Mild intertrigo no evidence of cellulitis Extremities: No trauma, well perfused Psych: Cooperative, aware of current events, mild confusion Bladder scan shows 175 cc of urine and patient is able to completely empty his bladder, urine is sent for further evaluate Course Orders Ordered: ED Orders 09/05/24 07:39 XR chest 1V Stat EKG-12 Lead Stat 09/05/24 07:40 Complete Blood Count AUTO DIFF Stat Comprehensive Metabolic Panel Stat Lactate (Lactic Acid) Stat Lipase Stat Magnesium Stat PT [Prothrombin Time INR] Stat PTT Partial Thromboplastin Mohsen Stat 09/05/24 07:50 Urinalysis and Microscopic Stat 09/05/24 07:51 CT abdomen pelvis w con Stat 09/05/24 09:24 US abdomen limited Stat Hydromorphone HCl (Hydromorphone 0.5 Mg Inj) 0.5 mg IV Q15MIN PRN PRN Reason: Pain, Last Admin: 09/05/24 09:34 Dose: 0.5 mg Documented By: Admin: 09/05/24 09:00 Dose: 0.5 mg Documented By: RB Nystatin (Nystatin Powder 15gm) 1 applic TOP TID PRN PRN Reason: Rash Last Admin: 09/05/24 09:34 Dose: 1 applic Documented By: RB Discontinued Medications Sodium Chloride (Normal Saline 0.9%) 1,000 mls @ 1,000 mls/hr IV BOLUS ONE Stop: 09/05/24 09:11 Last Infusion: 09/05/24 10:20 Dose: Infused Documented By: Infusion: 09/05/24 09:05 Dose: 799 mls/hr Documented By: Infusion: 09/05/24 08:36 Dose: 0 mls/hr Documented By: Admin: 09/05/24 08:33 Dose: 1,000 mls/hr Documented By: RB Metronidazole (Flagyl) 500 mg in 100 mls @ 100 mls/hr IV NOW ONE Stop: 09/05/24 09:11 Last Admin: 09/05/24 09:41 Dose: 100 mls/hr Documented By: RB Ceftriaxone Sodium 2,000 mg/ (Sodium Chloride) 100 mls @ 200 mls/hr IV NOW ONE Stop: 09/05/24 08:13 Last Infusion: 09/05/24 09:42 Dose: Infused Documented By: Infusion: 09/05/24 09:05 Dose: 200 mls/hr Documented By: Infusion: 09/05/24 08:36 Dose: 0 mls/hr Documented By: Admin: 09/05/24 08:32 Dose: 200 mls/hr Documented By: RB Ondansetron HCl (Ondansetron 4 Mg/2 Ml Inj) 4 mg IV NOW ONE Stop: 09/05/24 08:35 Last Admin: 09/05/24 08:59 Dose: 4 mg Documented By: RB Vital Signs Vital signs: Vital Signs - 8 hr 09/05/24 07:37 09/05/24 07:39 09/05/24 07:39 Temperature 98 F Pulse Rate 91 H 82 82 Respiratory Rate 22 21 Blood Pressure 200/93 H Pulse Oximetry 93 94 94 Oxygen Delivery Method Room Air 09/05/24 07:39 09/05/24 08:00 09/05/24 08:01 Temperature Pulse Rate 82 Respiratory Rate 21 Blood Pressure 200/93 H 191/88 H Pulse Oximetry 96 Oxygen Delivery Method 09/05/24 08:01 09/05/24 08:06 09/05/24 08:06 Temperature Pulse Rate 84 82 Respiratory Rate 22 23 Blood Pressure 177/90 H Pulse Oximetry 96 95 Oxygen Delivery Method 09/05/24 08:30 09/05/24 08:30 09/05/24 08:59 Temperature Pulse Rate 83 90 Respiratory Rate 24 25 H Blood Pressure 186/82 H Pulse Oximetry 95 93 Oxygen Delivery Method 09/05/24 09:00 09/05/24 09:00 09/05/24 09:30 Temperature Pulse Rate 86 83 Respiratory Rate 23 20 Blood Pressure 196/87 H Pulse Oximetry 94 91 Oxygen Delivery Method 09/05/24 09:31 09/05/24 09:31 09/05/24 10:00 Temperature Pulse Rate 83 Respiratory Rate 20 Blood Pressure 173/79 H 177/81 H Pulse Oximetry 91 Oxygen Delivery Method 09/05/24 10:00 Temperature Pulse Rate 83 Respiratory Rate 18 Blood Pressure Pulse Oximetry 90 L Oxygen Delivery Method Medical Decision Making Lab Data 09/05/24 07:40 09/05/24 07:40 Labs: Lab Results 09/05/24 09/05/24 09/05/24 Range/Units 07:40 07:50 09:34 WBC 13.3 H (4.5-11.0) X10^3/uL RBC 4.29 L (4.5-5.9) X10^6/uL Hgb 13.6 (13.5-17.5) g/dL Hct 40.6 L (41-53) % MCV 94.8 (80-100) fL MCH 31.8 (26-34) PG MCHC 33.6 (30-36) % RDW 15.0 H (11.6-14.8) % Plt Count 275 (150-400) X10^3/uL Neut % (Auto) 90.9 H (50-75) % Lymph % (Auto) 3.7 L (25-40) % [place] % (Auto) 5.1 (3-14) % Eos % (Auto) 0.1 L (2-4) % Baso % (Auto) 0.2 (0-2) % Neut # (Auto) 78752 H (8865-6729) /uL Lymph # (Auto) 500 L (8673-6264) /uL [place] # (Auto) 700 (0-900) /uL Eos # (Auto) 0 (0-450) /uL Baso # (Auto) 0 (0-100) /uL PT 13.3 H (9.4-12.5) SECONDS INR 1.2 (0.9-1.3) APTT 38 H (25.1-36.5) SECONDS Sodium 136 L (137-145) mmol/L Potassium 3.9 (3.4-5.1) mmol/L Chloride 101 (98-107) mmol/L Carbon Dioxide 25 (22-32) mmol/L BUN 12 (9-20) mg/dL Creatinine 0.94 (0.66-1.25) mg/dL Estimated GFR > 60 (>60) mL/min BUN/Creatinine Ratio 12.8 (6-22) Glucose 165 H (80-110) mg/dL Lactate 2.5 H 2.3 H (0.7-2.1) mmol/L Calcium 9.1 (8.4-10.2) mg/dL Magnesium 1.5 L (1.6-2.3) mg/dL Total Bilirubin 1.3 (0.2-1.3) mg/dL AST 22 (17-59) IU/L ALT 17 (<50) IU/L Alkaline Phosphatase 105 (38-126) U/L Total Protein 7.4 (6.3-8.2) g/dL Albumin 4.2 (3.5-5.0) g/dL Globulin 3.2 (1.7-4.1) g/dL Albumin/Globulin Ratio 1.3 (1.0-2.8) Lipase 36 (23-300) U/L Urine Color Yellow Urine Appearance Clear Urine pH 6.5 (4.5-8.0) Ur Specific [employer] 1.020 (1.000-1.035) Urine Protein Negative (Negative) Urine Glucose (UA) Trace H (Negative) g/dL Urine Ketones 1+ H (NEGATIVE) Urine Occult Blood Negative (Negative) Urine Nitrate Negative (Negative) Urine Bilirubin Negative (NEGATIVE) Urine Urobilinogen 0.2 (0.2) E.U./dL Ur Leukocyte Esterase Negative (NEGATIVE) Urine RBC 0-1/hpf (0-5/HPF) Urine WBC None seen (0-5/HPF) Ur Squamous Epith Cells 0-1 /hpf (0-5/HPF) Urine Bacteria None seen (None) Hyaline Casts 0-1/lpf (None) Ur Culture Indicated? Cult not indicated Vol Urine Centrifuged 10ml (spun) Imaging Data CT scan - abdomen/pelvis: Radiologist's Impression: PROCEDURE: CT ABDOMEN PELVIS W CON INDICATIONS: acute abdominal pain TECHNIQUE: After the administration of intravenous contrast, axial sections acquired from the lung bases to the pubic symphysis. Coronal and sagittal reformats were performed. For radiation dose reduction, the following was used: automated exposure control, adjustment of mA and/or kV according to patient size. COMPARISON: None. FINDINGS: Image quality: Diagnostic. Lower Chest: Atherosclerotic vascular calcifications including severe coronary artery calcifications. Calcified pleural plaques are noted. Bibasilar atelectasis. ABDOMEN: Liver: No solid mass. Gallbladder: Likely gallstones which are not well visualized by CT. Gallbladder is distended. Biliary ducts: No biliary dilation. Pancreas: No ductal dilation. Spleen: Size is within normal limits. Adrenal Glands: No adrenal nodules. Kidneys and Ureters: The left kidney is inferiorly located within the pelvis. No hydronephrosis. No solid mass. No complex renal cystic lesion which requires follow up. Large simple appearing exophytic right renal cyst. Nonspecific perinephric stranding is noted. Stomach and Bowel: Normal colonic caliber, without significant wall thickening. Few diverticula without evidence of acute diverticulitis. Peritoneum: No abnormal intraperitoneal fluid. No free air. Ventral Wall: No significant ventral hernia. Abdominal Nodes: No retroperitoneal or mesenteric adenopathy by size criteria. Vessels: Aorta and inferior vena cava are normal in size. Atherosclerotic vascular calcifications. PELVIS: Pelvic Organs: Unremarkable. Bladder: No bladder wall thickening, accounting for underdistention. Pelvic Nodes: No enlarged lymph nodes. Miscellaneous: Large left and small right fat containing inguinal hernias. Bones: No aggressive osseous abnormality. Multilevel degenerative changes of the spine. Decreased osseous mineralization. Mild compression deformity of the superior endplate of L1, likely chronic. IMPRESSION: 1. No definite acute findings within the abdomen or pelvis to explain patient's symptoms. 2. Likely gallstones which are not well evaluated by CT. Gallbladder is distended. 3. Nonspecific bilateral perinephric stranding. 4. Few diverticula without evidence of acute diverticulitis. Dictated by: Beck Lilly M.D. on 09/05/2024 at 9:06 MDM Narrative Medical decision making narrative: CC: Abdominal pain starting last night Complicating co-morbidities: Recent stroke, known coronary artery disease, hypertension, hyperlipidemia. Unclear if he remains on warfarin after his recent hemorrhagic stroke Data collected from: patient, medics Social determinants of health that may influence the patients condition: Patient does continue to live at home Medical records reviewed: ER notes with recent hemorrhagic stroke reviewed. Discharge summary from January of 2022 with an episode of congestive heart failure reviewed Differential considered: Acute urinary retention, urinary tract infection, kidney stone, pyelonephritis, diverticulitis, appendicitis, bowel obstruction, viral gastroenteritis, constipation Patient is part of the [employer] trial after his recent stroke. He is on either apixaban or aspirin and is blinded to that drug. He has no longer taking warfarin. If there is additional emergencies his local team physician for this trial is Dr. Sonny Morales [phone] Exam documented above, pertinent findings include: Aside from his neurologic exam which likely is close to his baseline per medics, exam is otherwise benign with a nonsurgical abdomen Lab Test results independently reviewed as above. Pertinent findings: CBC shows slight leukocytosis at 13.3 with 91% neutrophils. No anemia Chemistries are notable for appropriate renal function, normal liver studies, lactic acid slightly elevated at 2.5 Lipase is not elevated Urine does not suggest urinary tract infection, no blood, do not suspect kidney stone Independently reviewed EKG: Atrial fibrillation as the underlying rhythm and he is paste, rate is 84 Imaging studies independently reviewed: Chest x-ray is unremarkable. No evidence of free air in the abdomen CT scan of the abdomen does not have any pathology to explain his abdominal pain or infection Ultrasound of his gallbladder does not show gallstones or a suggestion of acute cholecystitis Treatments: Dilaudid, Zofran, 1 L of fluid, ceftriaxone and Zofran started with concern for intra abdominal infection Re-evaluations: Given the pain in an 89-year-old gentleman enough that he called medics, leukocytosis with significant left shift and mild dehydration/elevated lactic will give him a L of fluid as well as Flagyl and Zosyn presuming some type of GI source of infection, CT scan has been ordered with results Discussion: 89-year-old gentleman presents with abdominal pain starting last night. Had 2 days of loose stool but only once a day. No fevers, describes lower abdominal pain. Workup has mild leukocytosis, appeared to be mildly dehydrated he was given a L of fluid. Antibiotics were initiated however there was no evidence of infection on remainder of exam. Specifically no pneumonia, gallbladder disease, diverticulitis, intra-abdominal abscess, cellulitis, urinary tract infection. The only thing of note on his scan is a moderate amount of stool in the right side. We talked about couple of doses of senna today until he has quite a bit of stool that is more than his diarrhea notice yesterday moving through. Shared pictures of his CT scan with the patient his and his daughter to understand why he would be having diarrhea and I am still suggesting a laxative. The seemed to express understanding. they have senna at home, will have them go ahead and use this. At this time there is no indication for additional lab work, imaging studies or hospitalization and they are safe for discharge Discharge Plan Departure Patient Disposition: Home Clinical Impression: Abdominal pain, Acute constipation Instructions: DI for Constipation Activity Restrictions/Additional Instructions: Thank you for coming in today We did a very thorough workup today including looking for infection, masses, bowel obstruction or other explanations for your pain. There was no evidence of pneumonia, collapsed lung, heart attack, pancreatitis, gallbladder disease, abscess in your abdomen, tumors in your abdomen or diverticulitis. On the right side of your colon you do have quite a bit of formed stool and I wonder if that might be causing some of your pain. You also have quite a bit of gas through your colon that can be causing some discomfort. You mentioned that you have senna at home. I would recommend 2 pills this morning and if you still have not had a large bowel movement, more than a little bit of loose stool, then 2 more this evening. If you find that you are getting worse or develop any new symptoms, please feel free to return to the emergency department for further evaluation. Prescriptions: No Action lisinopril 5 mg Tablet 5 mg PO DAILY metoprolol tartrate 25 mg Tablet 25 mg PO BID aspirin 81 mg Tablet 81 mg PO DAILY Rx Instructions: Patient is part of a study and he is taking two medications 81mg aspirin or 5mg eliquis daily and the oppisite is a placebo. Eliquis 5 mg Tablet 2 mg PO DAILY Rx Instructions: Patient is part of a study and he is taking two medications 81mg aspirin or 5mg eliquis daily and the oppisite is a placebo. Referrals: Godfrey Taylor MD [Primary Care Provider] - Stand Alone Forms: Patient Portal/API/Survey
[2024-09-05 08:04] LABS: RBC Urine 0-1/HPF (0-5/HPF); WBC Urine None Seen (0-5/HPF)
[2024-09-05 08:05] LABS: Bacteria Urine None Seen; Culture Indicated Urine Cult Not Indicated; Hyaline Casts Urine 0-1/LPF; Squamous Epithelial Cell Urine 0-1 /HPF (0-5/HPF)
[2024-09-05 08:05] LABS: Alanine Aminotransferase 17 IU/L (<50); Albumin 4.2 g/dL (3.5-5.0); Albumin Globulin Ratio 1.3 (1.0-2.8); Alkaline Phosphatase 105 U/L (38-126); Aspartate Aminotransferase 22 IU/L (17-59); BUN Creatinine Ratio 12.8 (6-22); Bilirubin Total 1.3 mg/dL (0.2-1.3); Blood Urea Nitrogen 12 mg/dL (9-20); Calcium 9.1 mg/dL (8.4-10.2); Carbon Dioxide 25 mmol/L (22-32); Chloride 101 mmol/L (98-107); Estimated Glomerular Filt Rate > 60 mL/min (>60); Globulin 3.2 g/dL (1.7-4.1); Glucose 165 mg/dL (80-110); HEMOLYSIS < 15 (0-50); Lactate (Lactic Acid) 2.5 mmol/L (0.7-2.1); Lipase 36 U/L (23-300); Magnesium 1.5 mg/dL (1.6-2.3); Potassium 3.9 mmol/L (3.4-5.1); Sodium 136 mmol/L (137-145); Total Protein 7.4 g/dL (6.3-8.2)
[2024-09-05] MEDS: cefTRIAXone 2,000 MG in SODIUM CHLORIDE 0.9% 100 ML 200 MG IV (08:32)
[2024-09-05] MEDS: SODIUM CHLORIDE 0.9% 1,000 ML 1000 ML IV (08:33)
[2024-09-05] MEDS: ONDANSETRON 4 MG/2 ML INJ IV (08:59)
[2024-09-05] MEDS: HYDROMORPHONE 0.5 MG INJ IV ×2 (09:00→09:34)
[2024-09-05 09:22] LABS: Reflexed Lactate in 2 Hours Y
--- NOTE | 2024-09-05 09:24 | DI.US.S_ITS ---
PROCEDURE: US ABDOMEN LIMITED INDICATIONS: concern cholycystitis TECHNIQUE: Real-time scanning was performed of the abdominal and retroperitoneal organs, with image documentation. COMPARISON: [facility], , US ABDOMEN LIMITED, 01/31/2022, 15:38. FINDINGS: Liver: Liver is normal in size. Increased liver parenchymal echotexture is seen. Gallbladder: Sludge material and tiny stones are noted in neck of gallbladder. Mild gallbladder wall thickening is seen measures up to 4 mm in thickness. No pericholecystic fluid or sonographic Garcias sign. Biliary ducts: Intrahepatic bile ducts are non-dilated. Extrahepatic bile duct caliber measures 8.5 mm. Normal is 6-7 mm or less in diameter, or 10 mm or less post-cholecystectomy. Pancreas: Visualized portions of the pancreas are sonographically normal. Miscellaneous: No free abdominal fluid. Simple appearing right renal cyst is seen which was also noted on CT study. IMPRESSION: 1. Sludge and tiny stones are noted in dependent portion of gallbladder lumen with mild gallbladder wall thickening. No evidence of acute cholecystitis. 2. No intrahepatic biliary ductal dilatation. Common bile duct size is in the upper limits of normal for patient's age. 3. Hepatic steatosis. No discrete hepatic lesion. Dictated by: Joby Smith M.D. on 09/05/2024 at 10:30 Approved by: Joby Smith M.D. on 09/05/2024 at 10:32
[2024-09-05] MEDS: NYSTATIN POWDER 15GM 1 APPLIC TOP (09:34)
[2024-09-05] MEDS: metroNIDAZOLE 500 MG/100 ML PIGGYBACK 100 MG IV (09:41)
[2024-09-05 09:53] LABS: Lactate 2HR (Lactic Acid Rflx) 2.3 mmol/L (0.7-2.1)
== END 2024-09-05 10:53 | disposition home or self-care (01) ==
PROVIDERS: Emergency Provider Emergency Medicine; Family Provider Internal Medicine; PCP Internal Medicine
DX: R10.9 Unspecified abdominal pain (principal); K59.00 Constipation, unspecified; D72.829 Elevated white blood cell count, unspecified; E86.0 Dehydration; R47.81 Slurred speech
CPT/HCPCS: 36415; 51798; 71045; 74177; 76705; 80053; 81001; 83605; 83690; 83735; 85025; 85610; 85730; 93005; 93010; 96365; 96367; 96375; 96376; 99284; J0696; J1171; J2405; Q9967

== ENCOUNTER 2024-09-08 14:51 | Emergency (ER) | payer MEDICARE, OTHER, SELFPAY ==
[2022-01-30 00:30] VITALS: BMI 28.8
[2024-09-08] VITALS (22 sets, daily range): BP systolic 116–178; BP diastolic 63–78; PULSE 60–76; RESP 18–28; TEMP 36.9; O2SAT 92–97
--- NOTE | 2024-09-08 15:09 | DI.RAD.S_ITS ---
PROCEDURE: XR CHEST 1V INDICATIONS: Shortness of breath TECHNIQUE: One view of the chest was acquired. COMPARISON: [facility], CR, XR CHEST 1V, 09/05/2024, 7:55. FINDINGS: Surgical changes and devices: Left chest wall pacemaker position is unchanged. Lungs and pleura: Poor inspiratory effort. Mild pulmonary vascular congestion is seen. Small infiltrate/atelectasis are noted at bilateral lung bases. Blunting of bilateral costophrenic angles are noted suggestive of trace bilateral pleural effusion. No gross pneumothorax. Mediastinum: Mediastinal contours appear normal. Heart size is enlarged. Bones and chest wall: No suspicious bony lesions. Overlying soft tissues appear unremarkable. IMPRESSION: Poor inspiratory effort. Finding is suggestive of CHF. Small infiltrates at bilateral lung bases cannot be excluded. No pneumothorax. Dictated by: Joby Smith M.D. on 09/08/2024 at 16:46 Approved by: Joby Smith M.D. on 09/08/2024 at 16:46
--- NOTE | 2024-09-08 15:09 | EKG_ITS ---
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
[2024-09-08 15:25] LABS: Add Manual Diff / Slide Review NO; Basophils Absolute Auto 100 /uL (0-100); Basophils Percent Auto 0.6 % (0-2); Eosinophils Absolute Auto 0 /uL (0-450); Hematocrit 39.4 % (41-53); Hemoglobin 13.3 g/dL (13.5-17.5); Lymphocytes Absolute Auto 500 /uL (1100-4500); Lymphocytes Percent Auto 2.4 % (25-40); Mean Corpuscular HGB Conc 33.7 % (30-36); Mean Corpuscular Hemoglobin 31.8 PG (26-34); Mean Corpuscular Volume 94.3 fL (80-100); Monocytes Absolute Auto 1200 /uL (0-900); Monocytes Percent Auto 5.5 % (3-14); Neutrophils Absolute Auto 20800 /uL (1500-7000); Neutrophils Percent Auto 91.5 % (50-75); Platelet Count 345 X10^3/uL (150-400); Red Blood Cell Count 4.18 X10^6/uL (4.5-5.9); Red Cell Distribution Width 14.7 % (11.6-14.8); White Blood Cell Count 22.7 X10^3/uL (4.5-11.0)
[2024-09-08 15:27] LABS: INR 1.3 (0.9-1.3); Prothrombin Time 14.5 SECONDS (9.4-12.5)
[2024-09-08 15:34] LABS: Alanine Aminotransferase 21 IU/L (<50); Albumin 3.6 g/dL (3.5-5.0); Alkaline Phosphatase 94 U/L (38-126); Aspartate Aminotransferase 28 IU/L (17-59); BUN Creatinine Ratio 29.5 (6-22); Bilirubin Total 2.6 mg/dL (0.2-1.3); Blood Urea Nitrogen 41 mg/dL (9-20); Calcium 9.1 mg/dL (8.4-10.2); Carbon Dioxide 31 mmol/L (22-32); Chloride 92 mmol/L (98-107); Estimated Glomerular Filt Rate 48 mL/min (>60); Globulin 3.5 g/dL (1.7-4.1); Glucose 155 mg/dL (80-110); HEMOLYSIS < 15 (0-50); Lactate (Lactic Acid) 2.1 mmol/L (0.7-2.1); Potassium 4.8 mmol/L (3.4-5.1); Sodium 128 mmol/L (137-145); Total Protein 7.1 g/dL (6.3-8.2)
[2024-09-08 15:46] LABS: NT-proBNP (BNP-Adult 18+) 2090 pg/mL (<450); Troponin I < 0.012 ng/mL (0.01-0.034)
--- NOTE | 2024-09-08 15:48 | ED_ITS ---
HPI - General Adult <George Pena DO - Last Filed: 09/09/24 07:02> General Chief complaint: Shortness of Breath/Dyspnea Stated complaint: weakness Time Seen by Provider: 09/08/24 15:30 Source: patient, family and EMS Mode of arrival: EMS Limitations: no limitations History of Present Illness HPI narrative: Patient is an 89-year-old male who is on anticoagulation. Has a pacemaker in place. Has a history of asthma. Has inhalers at home. Also has a history of hypertension. Was seen here in the emergency department 2 days ago. Was told that he had an infection? somewhere? but was not sent home with any antibiotics. Was diagnosed with constipation. Was told to take laxatives which she was done. Has had a small bowel movement. Continues to have abdominal distention. Has had continued weakness. He states he was not in any pain. No chest pain, shortness of breath, cough, sore throat, sinus congestion, abdominal pain. He has a history of prostate issues but does not feel like he is retaining urine. He was required a urinary catheter in the past. No skin changes. They contact his primary doctor advise a return to the emergency department for further evaluation. When EMS arrived they did find the patient to be hypoxic into the mid 80s. He was placed on nasal cannula. He does not use oxygen on a regular basis. Related Data Home Medications Medication Instructions Recorded Confirmed apixaban 5 mg tablet (Eliquis) 2 mg PO DAILY 09/05/24 09/05/24 aspirin 81 mg tablet 81 mg PO DAILY 09/05/24 09/05/24 lisinopril 5 mg tablet 5 mg PO DAILY 09/05/24 09/05/24 metoprolol tartrate 25 mg tablet 25 mg PO BID 09/05/24 09/05/24 Allergies Allergy/AdvReac Type Severity Reaction Status Date / Time No Known Drug Allergies Allergy Verified 07/22/24 08:37 Review of Systems <George Pena DO - Last Filed: 09/09/24 07:02> Review of Systems ROS Unobtainable: All systems reviewed & are unremarkable except as noted in HPI and below Patient History <George Pena DO - Last Filed: 09/09/24 07:02> Medical History Hemorrhagic stroke Retinal artery branch occlusion Coronary artery disease Vocal cord dysfunction TIA (transient ischemic attack) Atrial fibrillation Asthma Hypertension Hyperlipidemia Diabetes Surgical History (System 07/22/24 @ 08:37 by Nichol Robbins) Status post placement of other cardiac pacemaker History of permanent cardiac pacemaker placement History of heart artery stent H/O carotid endarterectomy Family History Father CAD (coronary artery disease) Mother Cancer Social History household members: spouse Smoking Status: Never smoker alcohol intake: current Smoking Status: Never smoker alcohol intake frequency: a few times a month Substance Use Type: does not use Exam <George Pena DO - Last Filed: 09/09/24 07:02> Initial Vital Signs Initial Vital Signs: Vital Signs Temperature 98.4 F 09/08/24 15:13 Pulse Rate 76 09/08/24 15:13 Respiratory Rate 24 09/08/24 15:13 Blood Pressure 116/78 09/08/24 15:13 Pulse Oximetry 97 09/08/24 15:13 Oxygen Delivery Method Nasal Cannula 09/08/24 15:13 Oxygen Flow Rate 4 09/08/24 15:13 Const General: cooperative, comfortable and No ill appearing HENTN Head: normal to inspection and normocephalic Resp Effort & Inspection: normal respiratory effort Auscultation: clear to auscultation bilaterally Other: Clear lungs but is requiring oxygen. Cardio Rate: regular rate Rhythm: regular rhythm GI Inspection: distended Palpation: soft, No firm, No guarding and No tender Other: Patient was not retaining urine Skin General: no rashes or lesions noted Neuro General: patient alert, patient awake, patient oriented x3 and moves all extremities Extrem General: normal to inspection and capillary refill normal <Lainey Lao MD - Last Filed: 09/09/24 01:06> Initial Vital Signs Initial Vital Signs: Vital Signs Temperature 98.4 F 09/08/24 15:13 Pulse Rate 76 09/08/24 15:13 Respiratory Rate 24 09/08/24 15:13 Blood Pressure 116/78 09/08/24 15:13 Pulse Oximetry 97 09/08/24 15:13 Oxygen Delivery Method Nasal Cannula 09/08/24 15:13 Oxygen Flow Rate 4 09/08/24 15:13 Course <George Pena DO - Last Filed: 09/09/24 07:02> Orders Ordered: Discontinued Medications Ceftriaxone Sodium 1,000 mg/ (Sodium Chloride) 100 mls @ 200 mls/hr IV NOW ONE Stop: 09/08/24 15:57 Last Infusion: 09/08/24 17:25 Dose: Infused Documented By: Admin: 09/08/24 16:40 Dose: 200 mls/hr Documented By: LINDA Sodium Chloride (Normal Saline 0.9%) 1,000 mls @ 125 mls/hr IV CONT EVAN Last Infusion: 09/08/24 22:33 Dose: 125 mls/hr Documented By: Admin: 09/08/24 17:42 Dose: 125 mls/hr Documented By: LINDA Vancomycin HCl (Vancomycin) 1,000 mg in 200 mls @ 200 mls/hr IV NOW ONE Stop: 09/08/24 18:46 Last Infusion: 09/08/24 19:08 Dose: Infused Documented By: Admin: 09/08/24 18:00 Dose: 200 mls/hr Documented By: LINDA Vital Signs Vital signs: Vital Signs - 8 hr 09/08/24 17:30 09/08/24 17:30 09/08/24 18:00 Pulse Rate 60 60 Respiratory Rate 24 20 Blood Pressure 178/77 H Pulse Oximetry 95 93 Oxygen Delivery Method Oxygen Flow Rate 09/08/24 18:01 09/08/24 18:01 09/08/24 18:30 Pulse Rate 60 60 Respiratory Rate 18 18 Blood Pressure 150/66 H Pulse Oximetry 93 96 Oxygen Delivery Method Oxygen Flow Rate 09/08/24 18:30 09/08/24 19:00 09/08/24 19:01 Pulse Rate 60 60 Respiratory Rate 22 20 Blood Pressure 169/67 H Pulse Oximetry 95 96 Oxygen Delivery Method Oxygen Flow Rate 09/08/24 19:01 09/08/24 19:30 09/08/24 19:30 Pulse Rate 61 Respiratory Rate 18 Blood Pressure 151/69 H 139/67 Pulse Oximetry 95 Oxygen Delivery Method Oxygen Flow Rate 09/08/24 20:00 09/08/24 20:30 09/08/24 20:30 Pulse Rate 60 60 Respiratory Rate 20 21 Blood Pressure 143/64 H Pulse Oximetry 96 95 Oxygen Delivery Method Nasal Cannula Nasal Cannula Oxygen Flow Rate 2 2 09/08/24 21:00 09/08/24 21:00 09/08/24 21:30 Pulse Rate 60 60 Respiratory Rate 18 20 Blood Pressure 136/63 Pulse Oximetry 94 97 Oxygen Delivery Method Nasal Cannula Nasal Cannula Oxygen Flow Rate 2 2 09/08/24 21:30 09/08/24 22:00 09/08/24 22:01 Pulse Rate 61 Respiratory Rate 24 Blood Pressure 152/69 H 172/77 H Pulse Oximetry 95 Oxygen Delivery Method Nasal Cannula Oxygen Flow Rate 2 09/08/24 22:01 Pulse Rate 60 Respiratory Rate 24 Blood Pressure Pulse Oximetry 95 Oxygen Delivery Method Nasal Cannula Oxygen Flow Rate 2 <Lainey Lao MD - Last Filed: 09/09/24 01:06> Orders Ordered: Discontinued Medications Ceftriaxone Sodium 1,000 mg/ (Sodium Chloride) 100 mls @ 200 mls/hr IV NOW ONE Stop: 09/08/24 15:57 Last Infusion: 09/08/24 17:25 Dose: Infused Documented By: Admin: 09/08/24 16:40 Dose: 200 mls/hr Documented By: LINDA Sodium Chloride (Normal Saline 0.9%) 1,000 mls @ 125 mls/hr IV CONT EVAN Last Infusion: 09/08/24 22:33 Dose: 125 mls/hr Documented By: Admin: 09/08/24 17:42 Dose: 125 mls/hr Documented By: LINDA Vancomycin HCl (Vancomycin) 1,000 mg in 200 mls @ 200 mls/hr IV NOW ONE Stop: 09/08/24 18:46 Last Infusion: 09/08/24 19:08 Dose: Infused Documented By: Admin: 09/08/24 18:00 Dose: 200 mls/hr Documented By: LINDA Vital Signs Vital signs: Vital Signs - 8 hr 09/08/24 17:30 09/08/24 17:30 09/08/24 18:00 Pulse Rate 60 60 Respiratory Rate 24 20 Blood Pressure 178/77 H Pulse Oximetry 95 93 Oxygen Delivery Method Oxygen Flow Rate 09/08/24 18:01 09/08/24 18:01 09/08/24 18:30 Pulse Rate 60 60 Respiratory Rate 18 18 Blood Pressure 150/66 H Pulse Oximetry 93 96 Oxygen Delivery Method Oxygen Flow Rate 09/08/24 18:30 09/08/24 19:00 09/08/24 19:01 Pulse Rate 60 60 Respiratory Rate 22 20 Blood Pressure 169/67 H Pulse Oximetry 95 96 Oxygen Delivery Method Oxygen Flow Rate 09/08/24 19:01 09/08/24 19:30 09/08/24 19:30 Pulse Rate 61 Respiratory Rate 18 Blood Pressure 151/69 H 139/67 Pulse Oximetry 95 Oxygen Delivery Method Oxygen Flow Rate 09/08/24 20:00 09/08/24 20:30 09/08/24 20:30 Pulse Rate 60 60 Respiratory Rate 20 21 Blood Pressure 143/64 H Pulse Oximetry 96 95 Oxygen Delivery Method Nasal Cannula Nasal Cannula Oxygen Flow Rate 2 2 09/08/24 21:00 09/08/24 21:00 09/08/24 21:30 Pulse Rate 60 60 Respiratory Rate 18 20 Blood Pressure 136/63 Pulse Oximetry 94 97 Oxygen Delivery Method Nasal Cannula Nasal Cannula Oxygen Flow Rate 2 2 09/08/24 21:30 09/08/24 22:00 09/08/24 22:01 Pulse Rate 61 Respiratory Rate 24 Blood Pressure 152/69 H 172/77 H Pulse Oximetry 95 Oxygen Delivery Method Nasal Cannula Oxygen Flow Rate 2 09/08/24 22:01 Pulse Rate 60 Respiratory Rate 24 Blood Pressure Pulse Oximetry 95 Oxygen Delivery Method Nasal Cannula Oxygen Flow Rate 2 Medical Decision Making <George Pena DO - Last Filed: 09/09/24 07:02> Medical Records Medical records reviewed: Yes I reviewed the patient's medical records. Lab Data Lab results reviewed: Yes I reviewed the patient's lab results. 09/08/24 15:05 09/08/24 15:05 Labs: Lab Results 09/08/24 09/08/24 09/08/24 Range/Units 15:05 15:25 16:30 WBC 22.7 H (4.5-11.0) X10^3/uL RBC 4.18 L (4.5-5.9) X10^6/uL Hgb 13.3 L (13.5-17.5) g/dL Hct 39.4 L (41-53) % MCV 94.3 (80-100) fL MCH 31.8 (26-34) PG MCHC 33.7 (30-36) % RDW 14.7 (11.6-14.8) % Plt Count 345 (150-400) X10^3/uL Neut % (Auto) 91.5 H (50-75) % Lymph % (Auto) 2.4 L (25-40) % [place] % (Auto) 5.5 (3-14) % Eos % (Auto) 0.0 L (2-4) % Baso % (Auto) 0.6 (0-2) % Neut # (Auto) 97204 H (8044-5559) /uL Lymph # (Auto) 500 L (3966-8430) /uL [place] # (Auto) 1200 H (0-900) /uL Eos # (Auto) 0 (0-450) /uL Baso # (Auto) 100 (0-100) /uL PT 14.5 H (9.4-12.5) SECONDS INR 1.3 (0.9-1.3) Sodium 128 L (137-145) mmol/L Potassium 4.8 (3.4-5.1) mmol/L Chloride 92 L (98-107) mmol/L Carbon Dioxide 31 (22-32) mmol/L BUN 41 H (9-20) mg/dL Creatinine 1.39 H (0.66-1.25) mg/dL Estimated GFR 48 L (>60) mL/min BUN/Creatinine Ratio 29.5 H (6-22) Glucose 155 H (80-110) mg/dL Lactate 2.1 1.7 (0.7-2.1) mmol/L Calcium 9.1 (8.4-10.2) mg/dL Total Bilirubin 2.6 H (0.2-1.3) mg/dL AST 28 (17-59) IU/L ALT 21 (<50) IU/L Alkaline Phosphatase 94 (38-126) U/L Troponin I < 0.012 (0.01-0.034) ng/mL NT-Pro-B Natriuret Pep 2090 H (<450) pg/mL Total Protein 7.1 (6.3-8.2) g/dL Albumin 3.6 (3.5-5.0) g/dL Globulin 3.5 (1.7-4.1) g/dL Albumin/Globulin Ratio 1.0 (1.0-2.8) Procalcitonin 1.78 H (<0.5) ng/mL Urine Color Urine Appearance Urine pH (4.5-8.0) Ur Specific [place] (1.000-1.035) Urine Protein (Negative) Urine Glucose (UA) (Negative) g/dL Urine Ketones (NEGATIVE) Urine Occult Blood (Negative) Urine Nitrate (Negative) Urine Bilirubin (NEGATIVE) Ur Bilirubin Confirm (Negative) Urine Urobilinogen (0.2) E.U./dL Ur Leukocyte Esterase (NEGATIVE) Urine RBC (0-5/HPF) Urine WBC (0-5/HPF) Ur Squamous Epith Cells (0-5/HPF) Ur Transition Epith Cell (0-5/HPF) Ur Renal Epithelial Cell (0-1/HPF) Urine Bacteria (None) Hyaline Casts (None) Granular Casts (None) Ur Culture Indicated? Vol Urine Centrifuged Chlamy pneumoniae PCR Not detected (Not Detect) Adenovirus (PCR) Not detected (Not Detect) B. pertussis DNA (PCR) Not detected (Not Detect) B.parapertussis DNA PCR Not detected (Not Detecte) Coronavirus OC43 (PCR) Not detected (Not Detect) Coronavirus HKU1 (PCR) Not detected (Not Detect) Coronavirus 229E (PCR) Not detected (Not Detect) SARS-CoV-2 (PCR) Not detected (Not Detecte) Coronavirus NL63 (PCR) Not detected (Not Detect) Human Metapneumovir PCR Not detected (Not Detect) Influenza Type A (PCR) Not detected (Not Detect) Influenza Type B (PCR) Not detected (Not Detect) M. pneumoniae (PCR) Not detected (Not Detect) Parainfluenza 1 (PCR) Not detected (Not Detect) Parainfluenza 2 (PCR) Not detected (Not Detect) Parainfluenza 3 (PCR) Not detected (Not Detect) Parainfluenza 4 (PCR) Not detected (Not Detect) RSV (PCR) Not detected (Not Detect) Entero/Rhino (PCR) Not detected (Not Detect) 09/08/24 Range/Units 17:02 WBC (4.5-11.0) X10^3/uL RBC (4.5-5.9) X10^6/uL Hgb (13.5-17.5) g/dL Hct (41-53) % MCV (80-100) fL MCH (26-34) PG MCHC (30-36) % RDW (11.6-14.8) % Plt Count (150-400) X10^3/uL Neut % (Auto) (50-75) % Lymph % (Auto) (25-40) % [place] % (Auto) (3-14) % Eos % (Auto) (2-4) % Baso % (Auto) (0-2) % Neut # (Auto) (2645-4161) /uL Lymph # (Auto) (7395-1220) /uL [place] # (Auto) (0-900) /uL Eos # (Auto) (0-450) /uL Baso # (Auto) (0-100) /uL PT (9.4-12.5) SECONDS INR (0.9-1.3) Sodium (137-145) mmol/L Potassium (3.4-5.1) mmol/L Chloride (98-107) mmol/L Carbon Dioxide (22-32) mmol/L BUN (9-20) mg/dL Creatinine (0.66-1.25) mg/dL Estimated GFR (>60) mL/min BUN/Creatinine Ratio (6-22) Glucose (80-110) mg/dL Lactate (0.7-2.1) mmol/L Calcium (8.4-10.2) mg/dL Total Bilirubin (0.2-1.3) mg/dL AST (17-59) IU/L ALT (<50) IU/L Alkaline Phosphatase (38-126) U/L Troponin I (0.01-0.034) ng/mL NT-Pro-B Natriuret Pep (<450) pg/mL Total Protein (6.3-8.2) g/dL Albumin (3.5-5.0) g/dL Globulin (1.7-4.1) g/dL Albumin/Globulin Ratio (1.0-2.8) Procalcitonin (<0.5) ng/mL Urine Color Brown Urine Appearance Clear Urine pH 5.5 (4.5-8.0) Ur Specific [place] 1.020 (1.000-1.035) Urine Protein 1+ H (Negative) Urine Glucose (UA) Negative (Negative) g/dL Urine Ketones Trace H (NEGATIVE) Urine Occult Blood Negative (Negative) Urine Nitrate Positive H (Negative) Urine Bilirubin 2+ H (NEGATIVE) Ur Bilirubin Confirm Positive H (Negative) Urine Urobilinogen 1.0 (0.2) E.U./dL Ur Leukocyte Esterase Negative (NEGATIVE) Urine RBC None seen (0-5/HPF) Urine WBC 1-5/hpf (0-5/HPF) Ur Squamous Epith Cells 0-1 /hpf (0-5/HPF) Ur Transition Epith Cell 1-5/hpf (0-5/HPF) Ur Renal Epithelial Cell 0-1/hpf (0-1/HPF) Urine Bacteria None seen (None) Hyaline Casts 5-10/lpf (None) Granular Casts 5-10/lpf (None) Ur Culture Indicated? Cult not indicated Vol Urine Centrifuged 10ml (spun) Chlamy pneumoniae PCR (Not Detect) Adenovirus (PCR) (Not Detect) B. pertussis DNA (PCR) (Not Detect) B.parapertussis DNA PCR (Not Detecte) Coronavirus OC43 (PCR) (Not Detect) Coronavirus HKU1 (PCR) (Not Detect) Coronavirus 229E (PCR) (Not Detect) SARS-CoV-2 (PCR) (Not Detecte) Coronavirus NL63 (PCR) (Not Detect) Human Metapneumovir PCR (Not Detect) Influenza Type A (PCR) (Not Detect) Influenza Type B (PCR) (Not Detect) M. pneumoniae (PCR) (Not Detect) Parainfluenza 1 (PCR) (Not Detect) Parainfluenza 2 (PCR) (Not Detect) Parainfluenza 3 (PCR) (Not Detect) Parainfluenza 4 (PCR) (Not Detect) RSV (PCR) (Not Detect) Entero/Rhino (PCR) (Not Detect) Imaging Data Chest x-ray: Radiologist's Impression: PROCEDURE: XR CHEST 1V INDICATIONS: Shortness of breath TECHNIQUE: One view of the chest was acquired. COMPARISON: [facility], CR, XR CHEST 1V, 09/05/2024, 7:55. FINDINGS: Surgical changes and devices: Left chest wall pacemaker position is unchanged. Lungs and pleura: Poor inspiratory effort. Mild pulmonary vascular congestion is seen. Small infiltrate/atelectasis are noted at bilateral lung bases. Blunting of bilateral costophrenic angles are noted suggestive of trace bilateral pleural effusion. No gross pneumothorax. Mediastinum: Mediastinal contours appear normal. Heart size is enlarged. Bones and chest wall: No suspicious bony lesions. Overlying soft tissues appear unremarkable. IMPRESSION: Poor inspiratory effort. Finding is suggestive of CHF. Small infiltrates at bilateral lung bases cannot be excluded. No pneumothorax. CT scan - abdomen/pelvis: Radiologist's Impression: PROCEDURE: CT CHEST ABD PEL W CON INDICATIONS: New hypoxia, fever unknown origin, abdominal pain/distention TECHNIQUE: After the administration of intravenous contrast, 5 mm thick sections acquired from the lung apices to the symphysis. 5 mm coronal and sagittal reformats were performed, with additional 7 mm MIP reformats through the lungs. For radiation dose reduction, the following was used: automated exposure control, adjustment of mA and/or kV according to patient size. COMPARISON: [facility], CT, CT CHEST W CON, 01/30/2022, 8:35. [facility], CT, CT ABDOMEN PELVIS W CON, 09/05/2024, 8:42. FINDINGS: Image quality: Diagnostic Lungs and pleura: Bibasilar consolidations. Superimposed atelectasis is probable. There is superimposed mild bronchial wall thickening, more significant in the lower lobes. No drainable pleural effusions. Mediastinum, heart, and esophagus: Coronary calcifications. Heart size is at the upper limit of normal. There are left road leads and left chest wall pulse generator. Borderline enlarged mediastinal hilar lymph nodes again seen. Chest wall and thyroid: Unremarkable Liver: Trace perihepatic fluid. Gallbladder and biliary system: Distended, with significant pericholecystic fluid. The wall at the lateral aspect appears irregular. CBD appears nondilated Pancreas: [id number] parenchymal atrophy without ductal dilation Spleen: Nonenlarged Adrenals: Bilateral mild thickening Kidneys: Large right renal cyst. Other smaller cysts are present. No hydronephrosis. No definite solid renal mass or complicated lesion Vessels and lymph nodes: The main portal vein appears patent. No abdominal aortic aneurysm. Atherosclerotic calcifications are present. No pathologic lymph nodes by size criteria. Bowel and peritoneum: Diffuse fluid-filled loops of small bowel. [id number] gastric wall thickening and duodenal wall thickening, with surrounding edematous fat stranding. Partially liquid colonic contents. The colon is moderately distended throughout. No discrete obstructing focal point identified Diffuse mesenteric fat stranding without focal ascites Body wall: Unremarkable Pelvis: Moderate to large inguinal hernias, greater on the left. Bladder appears unremarkable. Prostate is unremarkable. Bones: No acute or suspicious osseous findings. There are degenerative changes, which are advanced. Similar mild L1 height loss. IMPRESSION: Marked gallbladder distention and irregularity of the lateral wall. There is significant pericholecystic fluid with trace perihepatic fluid is well. Findings may represent cholecystitis. Perforated or gangrenous component are possible. Ultrasound could further evaluate. Bibasilar pneumonia/aspiration. No drainable effusions. Diffuse distended small and large bowel loops, filled with fluid, likely enterocolitis. Probable gastritis also seen. No drainable ascites or abscess. Numerous other nonacute findings above. ECG Data Attestation: I personally reviewed and interpreted this ECG as follows: Interpretation: Atrial and ventricular paced Rate 60 MDM Narrative Medical decision making narrative: Patient with just generally not feeling well. No abdominal pain or chest pain or vomiting. Is afebrile. Slightly tachypneic. Is now requiring oxygen. He is not on oxygen home on a regular basis. He now has leukocytosis that is higher than what it was 2 days ago. Has a acute kidney injury with a creatinine that is slightly higher. Has a nitrite positive urine. CT scan of the chest abdomen pelvis shows a distended gallbladder with pericholecystic fluid. His bilirubin is now 2.5. It was normal 2 days ago. The rest of his LFTs are normal. He has no abdominal tenderness. He was given antibiotics. Blood cultures were obtained. Lactate is unremarkable. Does have an elevated procalcitonin. Respiratory panel was negative. I did discuss the case with Dr. Celeste on-call for General surgery. He recommended the patient obtain a MRCP. 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 He recommended admission to the hospital under the medicine service for a cholecystectomy. Discussed the case with Dr. Hooper hospitalist on-call who then had a discussion with Dr. Celeste they now feel the patient would benefit for transfer to facility that has IR as he may need a percutaneous drain. Care turned over to Dr. Lao to follow up and disposition. <Lainey Lao MD - Last Filed: 09/09/24 01:06> Lab Data Labs: Lab Results 09/08/24 09/08/24 09/08/24 Range/Units 15:05 15:25 16:30 WBC 22.7 H (4.5-11.0) X10^3/uL RBC 4.18 L (4.5-5.9) X10^6/uL Hgb 13.3 L (13.5-17.5) g/dL Hct 39.4 L (41-53) % MCV 94.3 (80-100) fL MCH 31.8 (26-34) PG MCHC 33.7 (30-36) % RDW 14.7 (11.6-14.8) % Plt Count 345 (150-400) X10^3/uL Neut % (Auto) 91.5 H (50-75) % Lymph % (Auto) 2.4 L (25-40) % [place] % (Auto) 5.5 (3-14) % Eos % (Auto) 0.0 L (2-4) % Baso % (Auto) 0.6 (0-2) % Neut # (Auto) 43624 H (0387-3482) /uL Lymph # (Auto) 500 L (1022-4279) /uL [place] # (Auto) 1200 H (0-900) /uL Eos # (Auto) 0 (0-450) /uL Baso # (Auto) 100 (0-100) /uL PT 14.5 H (9.4-12.5) SECONDS INR 1.3 (0.9-1.3) Sodium 128 L (137-145) mmol/L Potassium 4.8 (3.4-5.1) mmol/L Chloride 92 L (98-107) mmol/L Carbon Dioxide 31 (22-32) mmol/L BUN 41 H (9-20) mg/dL Creatinine 1.39 H (0.66-1.25) mg/dL Estimated GFR 48 L (>60) mL/min BUN/Creatinine Ratio 29.5 H (6-22) Glucose 155 H (80-110) mg/dL Lactate 2.1 1.7 (0.7-2.1) mmol/L Calcium 9.1 (8.4-10.2) mg/dL Total Bilirubin 2.6 H (0.2-1.3) mg/dL AST 28 (17-59) IU/L ALT 21 (<50) IU/L Alkaline Phosphatase 94 (38-126) U/L Troponin I < 0.012 (0.01-0.034) ng/mL NT-Pro-B Natriuret Pep 2090 H (<450) pg/mL Total Protein 7.1 (6.3-8.2) g/dL Albumin 3.6 (3.5-5.0) g/dL Globulin 3.5 (1.7-4.1) g/dL Albumin/Globulin Ratio 1.0 (1.0-2.8) Procalcitonin 1.78 H (<0.5) ng/mL Urine Color Urine Appearance Urine pH (4.5-8.0) Ur Specific [place] (1.000-1.035) Urine Protein (Negative) Urine Glucose (UA) (Negative) g/dL Urine Ketones (NEGATIVE) Urine Occult Blood (Negative) Urine Nitrate (Negative) Urine Bilirubin (NEGATIVE) Ur Bilirubin Confirm (Negative) Urine Urobilinogen (0.2) E.U./dL Ur Leukocyte Esterase (NEGATIVE) Urine RBC (0-5/HPF) Urine WBC (0-5/HPF) Ur Squamous Epith Cells (0-5/HPF) Ur Transition Epith Cell (0-5/HPF) Ur Renal Epithelial Cell (0-1/HPF) Urine Bacteria (None) Hyaline Casts (None) Granular Casts (None) Ur Culture Indicated? Vol Urine Centrifuged Chlamy pneumoniae PCR Not detected (Not Detect) Adenovirus (PCR) Not detected (Not Detect) B. pertussis DNA (PCR) Not detected (Not Detect) B.parapertussis DNA PCR Not detected (Not Detecte) Coronavirus OC43 (PCR) Not detected (Not Detect) Coronavirus HKU1 (PCR) Not detected (Not Detect) Coronavirus 229E (PCR) Not detected (Not Detect) SARS-CoV-2 (PCR) Not detected (Not Detecte) Coronavirus NL63 (PCR) Not detected (Not Detect) Human Metapneumovir PCR Not detected (Not Detect) Influenza Type A (PCR) Not detected (Not Detect) Influenza Type B (PCR) Not detected (Not Detect) M. pneumoniae (PCR) Not detected (Not Detect) Parainfluenza 1 (PCR) Not detected (Not Detect) Parainfluenza 2 (PCR) Not detected (Not Detect) Parainfluenza 3 (PCR) Not detected (Not Detect) Parainfluenza 4 (PCR) Not detected (Not Detect) RSV (PCR) Not detected (Not Detect) Entero/Rhino (PCR) Not detected (Not Detect) 09/08/24 Range/Units 17:02 WBC (4.5-11.0) X10^3/uL RBC (4.5-5.9) X10^6/uL Hgb (13.5-17.5) g/dL Hct (41-53) % MCV (80-100) fL MCH (26-34) PG MCHC (30-36) % RDW (11.6-14.8) % Plt Count (150-400) X10^3/uL Neut % (Auto) (50-75) % Lymph % (Auto) (25-40) % [place] % (Auto) (3-14) % Eos % (Auto) (2-4) % Baso % (Auto) (0-2) % Neut # (Auto) (7521-8993) /uL Lymph # (Auto) (2486-4983) /uL [place] # (Auto) (0-900) /uL Eos # (Auto) (0-450) /uL Baso # (Auto) (0-100) /uL PT (9.4-12.5) SECONDS INR (0.9-1.3) Sodium (137-145) mmol/L Potassium (3.4-5.1) mmol/L Chloride (98-107) mmol/L Carbon Dioxide (22-32) mmol/L BUN (9-20) mg/dL Creatinine (0.66-1.25) mg/dL Estimated GFR (>60) mL/min BUN/Creatinine Ratio (6-22) Glucose (80-110) mg/dL Lactate (0.7-2.1) mmol/L Calcium (8.4-10.2) mg/dL Total Bilirubin (0.2-1.3) mg/dL AST (17-59) IU/L ALT (<50) IU/L Alkaline Phosphatase (38-126) U/L Troponin I (0.01-0.034) ng/mL NT-Pro-B Natriuret Pep (<450) pg/mL Total Protein (6.3-8.2) g/dL Albumin (3.5-5.0) g/dL Globulin (1.7-4.1) g/dL Albumin/Globulin Ratio (1.0-2.8) Procalcitonin (<0.5) ng/mL Urine Color Brown Urine Appearance Clear Urine pH 5.5 (4.5-8.0) Ur Specific [place] 1.020 (1.000-1.035) Urine Protein 1+ H (Negative) Urine Glucose (UA) Negative (Negative) g/dL Urine Ketones Trace H (NEGATIVE) Urine Occult Blood Negative (Negative) Urine Nitrate Positive H (Negative) Urine Bilirubin 2+ H (NEGATIVE) Ur Bilirubin Confirm Positive H (Negative) Urine Urobilinogen 1.0 (0.2) E.U./dL Ur Leukocyte Esterase Negative (NEGATIVE) Urine RBC None seen (0-5/HPF) Urine WBC 1-5/hpf (0-5/HPF) Ur Squamous Epith Cells 0-1 /hpf (0-5/HPF) Ur Transition Epith Cell 1-5/hpf (0-5/HPF) Ur Renal Epithelial Cell 0-1/hpf (0-1/HPF) Urine Bacteria None seen (None) Hyaline Casts 5-10/lpf (None) Granular Casts 5-10/lpf (None) Ur Culture Indicated? Cult not indicated Vol Urine Centrifuged 10ml (spun) Chlamy pneumoniae PCR (Not Detect) Adenovirus (PCR) (Not Detect) B. pertussis DNA (PCR) (Not Detect) B.parapertussis DNA PCR (Not Detecte) Coronavirus OC43 (PCR) (Not Detect) Coronavirus HKU1 (PCR) (Not Detect) Coronavirus 229E (PCR) (Not Detect) SARS-CoV-2 (PCR) (Not Detecte) Coronavirus NL63 (PCR) (Not Detect) Human Metapneumovir PCR (Not Detect) Influenza Type A (PCR) (Not Detect) Influenza Type B (PCR) (Not Detect) M. pneumoniae (PCR) (Not Detect) Parainfluenza 1 (PCR) (Not Detect) Parainfluenza 2 (PCR) (Not Detect) Parainfluenza 3 (PCR) (Not Detect) Parainfluenza 4 (PCR) (Not Detect) RSV (PCR) (Not Detect) Entero/Rhino (PCR) (Not Detect) MDM Narrative Medical decision making narrative: Patient with just generally not feeling well. No abdominal pain or chest pain or vomiting. Is afebrile. Slightly tachypneic. Is now requiring oxygen. He is not on oxygen home on a regular basis. He now has leukocytosis that is higher than what it was 2 days ago. Has a acute kidney injury with a creatinine that is slightly higher. Has a nitrite positive urine. CT scan of the chest abdomen pelvis shows a distended gallbladder with pericholecystic fluid. His bilirubin is now 2.5. It was normal 2 days ago. The rest of his LFTs are normal. He has no abdominal tenderness. He was given antibiotics. Blood cultures were obtained. Lactate is unremarkable. Does have an elevated procalcitonin. Respiratory panel was negative. I did discuss the case with Dr. Celeste on-call for General surgery. He recommended the patient obtain a MRCP. 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 He recommended admission to the hospital under the medicine service for a cholecystectomy. Discussed the case with Dr. Hooper hospitalist on-call who then had a discussion with Dr. Celeste they now feel the patient would benefit for transfer to facility that has IR as he may need a percutaneous drain. Care turned over to Dr. Lao to follow up and disposition. Care of patient is signed out to me by daytime physician. Independent review of patient and chart performed by myself. Patient has remained hemodynamically stable, he has been given antibiotics IV by daytime physician. Spoke with Dr. Crespo of acute care surgery at [facility], who agrees to see patient and requested ER to ER transfer. Spoke with Dr. Schreiber of ED who also accepted patient. Patient remained on 2 L nasal cannula until [place] ambulance service arrived to transport to [place] [facility]. Patient transported in stable condition. Discharge Plan Departure Patient Disposition: [facility] Clinical Impression: Acute cholecystitis, Bilateral pneumonia, Borderline low O2 saturation Prescriptions: No Action lisinopril 5 mg Tablet 5 mg PO DAILY metoprolol tartrate 25 mg Tablet 25 mg PO BID aspirin 81 mg Tablet 81 mg PO DAILY Rx Instructions: Patient is part of a study and he is taking two medications 81mg aspirin or 5mg eliquis daily and the oppisite is a placebo. Eliquis 5 mg Tablet 2 mg PO DAILY Rx Instructions: Patient is part of a study and he is taking two medications 81mg aspirin or 5mg eliquis daily and the oppisite is a placebo. Referrals: Godfrey Taylor MD [Primary Care Provider] - Stand Alone Forms: Patient Portal/API/Survey
--- NOTE | 2024-09-08 15:56 | DI.CT.S_ITS ---
PROCEDURE: CT CHEST ABD PEL W CON INDICATIONS: New hypoxia, fever unknown origin, abdominal pain/distention TECHNIQUE: After the administration of intravenous contrast, 5 mm thick sections acquired from the lung apices to the symphysis. 5 mm coronal and sagittal reformats were performed, with additional 7 mm MIP reformats through the lungs. For radiation dose reduction, the following was used: automated exposure control, adjustment of mA and/or kV according to patient size. COMPARISON: [facility], CT, CT CHEST W CON, 01/30/2022, 8:35. [facility], CT, CT ABDOMEN PELVIS W CON, 09/05/2024, 8:42. FINDINGS: Image quality: Diagnostic Lungs and pleura: Bibasilar consolidations. Superimposed atelectasis is probable. There is superimposed mild bronchial wall thickening, more significant in the lower lobes. No drainable pleural effusions. Mediastinum, heart, and esophagus: Coronary calcifications. Heart size is at the upper limit of normal. There are left road leads and left chest wall pulse generator. Borderline enlarged mediastinal hilar lymph nodes again seen. Chest wall and thyroid: Unremarkable Liver: Trace perihepatic fluid. Gallbladder and biliary system: Distended, with significant pericholecystic fluid. The wall at the lateral aspect appears irregular. CBD appears nondilated Pancreas: [id number] parenchymal atrophy without ductal dilation Spleen: Nonenlarged Adrenals: Bilateral mild thickening Kidneys: Large right renal cyst. Other smaller cysts are present. No hydronephrosis. No definite solid renal mass or complicated lesion Vessels and lymph nodes: The main portal vein appears patent. No abdominal aortic aneurysm. Atherosclerotic calcifications are present. No pathologic lymph nodes by size criteria. Bowel and peritoneum: Diffuse fluid-filled loops of small bowel. [id number] gastric wall thickening and duodenal wall thickening, with surrounding edematous fat stranding. Partially liquid colonic contents. The colon is moderately distended throughout. No discrete obstructing focal point identified Diffuse mesenteric fat stranding without focal ascites Body wall: Unremarkable Pelvis: Moderate to large inguinal hernias, greater on the left. Bladder appears unremarkable. Prostate is unremarkable. Bones: No acute or suspicious osseous findings. There are degenerative changes, which are advanced. Similar mild L1 height loss. IMPRESSION: Marked gallbladder distention and irregularity of the lateral wall. There is significant pericholecystic fluid with trace perihepatic fluid is well. Findings may represent cholecystitis. Perforated or gangrenous component are possible. Ultrasound could further evaluate. Bibasilar pneumonia/aspiration. No drainable effusions. Diffuse distended small and large bowel loops, filled with fluid, likely enterocolitis. Probable gastritis also seen. No drainable ascites or abscess. Numerous other nonacute findings above. Dictated by: Zac Calvert M.D. on 09/08/2024 at 17:03 Approved by: Zac Calvert M.D. on 09/08/2024 at 17:12
[2024-09-08 16:30] LABS: Procalcitonin 1.78 ng/mL (<0.5)
[2024-09-08] MEDS: cefTRIAXone 1,000 MG in SODIUM CHLORIDE 0.9% 100 ML 200 MG IV (16:40)
[2024-09-08 16:41] LABS: Adenovirus Not Detected (Not Detect); B. parapertussis Not Detected (Not Detecte); Bordetella pertussis Not Detected (Not Detect); Chlamydophila pneumoniae Not Detected (Not Detect); Coronavirus 229E Not Detected (Not Detect); Coronavirus HKU1 Not Detected (Not Detect); Coronavirus NL 63 Not Detected (Not Detect); Coronavirus OC43 Not Detected (Not Detect); Human Metapneumovirus Not Detected (Not Detect); Human Rhinovirus/Enterovirus Not Detected (Not Detect); Influenza A Not Detected (Not Detect); Influenza B Not Detected (Not Detect); Mycoplasma pneumoniae Not Detected (Not Detect); Parainfluenza Virus 1 Not Detected (Not Detect); Parainfluenza Virus 2 Not Detected (Not Detect); Parainfluenza Virus 3 Not Detected (Not Detect); Parainfluenza Virus 4 Not Detected (Not Detect); Respiratory Syncytial Virus Not Detected (Not Detect); SARS- CoV-2 Not Detected (Not Detecte)
[2024-09-08 16:51] LABS: Reflexed Lactate in 2 Hours Y
[2024-09-08 16:52] LABS: Lactate (Lactic Acid) 1.7 mmol/L (0.7-2.1)
[2024-09-08 17:22] LABS: Appearance Urine UA CLEAR; Bilirubin Urine UA 2+ (NEGATIVE); Glucose Urine UA NEGATIVE (Negative); Ketones Urine UA TRACE (NEGATIVE); Leukocyte Esterase Urine UA NEGATIVE (NEGATIVE); Nitrite Urine UA POSITIVE (Negative); Occult Blood Urine UA NEGATIVE (Negative); Protein Urine UA 1+ (Negative); pH Urine UA 5.5 (4.5-8.0)
[2024-09-08 17:38] LABS: Bacteria Urine None Seen; Color Urine UA BROWN; Ictotest Urine Positive (Negative); RBC Urine None Seen (0-5/HPF); Renal Epithelial Cells Urine 0-1/HPF (0-1/HPF); Squamous Epithelial Cell Urine 0-1 /HPF (0-5/HPF); Transitional Epi Cells Urine 1-5/HPF (0-5/HPF); Urine Volume 10mL (spun); WBC Urine 1-5/HPF (0-5/HPF)
[2024-09-08 17:39] LABS: Culture Indicated Urine Cult Not Indicated; Granular Casts Urine 5-10/LPF; Hyaline Casts Urine 5-10/LPF
[2024-09-08] MEDS: SODIUM CHLORIDE 0.9% 1,000 ML 125 ML IV (17:42)
[2024-09-08] MEDS: VANCOMYCIN 1,000 MG/200 ML PIGGYBACK 200 MG IV (18:00)
--- NOTE | 2024-09-08 22:00 | PC.NURSE ---
Phone pt to [facility] of transfer.
== END 2024-09-08 22:37 | disposition short-term general hospital (02) ==
PROVIDERS: Emergency Provider Emergency Medicine; Family Provider Internal Medicine; PCP Internal Medicine
DX: K81.0 Acute cholecystitis (principal); J18.9 Pneumonia, unspecified organism; R79.81 Abnormal blood-gas level; R06.82 Tachypnea, not elsewhere classified; Z11.52 Encounter for screening for COVID-19
CPT/HCPCS: 36415; 51798; 71045; 71260; 74177; 80053; 81001; 83605; 83880; 84145; 84484; 85025; 85610; 87040; 87086; 87633; 93005; 96361; 96365; 96367; 99285; J0696; Q9967